=== PATIENT | female | born 1975 | race Caucasian/White ===

== ENCOUNTER 2017-10-27 14:44 | Emergency (ER) | payer BC ==
[2017-10-27 15:44] LABS: #Lymphocytes 1.4 thou/uL (1.20-3.40); #Monocytes 0.3 thou/uL (0.11-0.59); #Neutrophils 5.2 thou/uL (1.40-6.50); %Basophils 0.6 % (0.0-1.0); %Eosinophils 0.3 % (0.0-10.0); %Lymphocytes 19.7 % (21.0-51.0); %Monocytes 4.7 % (0.0-10.0); %Neutrophils 74.7 % (42.0-75.0); Hemoglobin 12.6 g/dL (12.0-16.0); Mean Corpuscular Hemoglobin 28.9 pg (27.0-31.0); Mean Corpuscular Volume 87.7 fl (81.0-99.0); Mean Platelet Volume 8.4 fL (7.4-10.4); Platelet Count 310 thou/uL (130-400); RBC Distribution Width 13.4 % (11.5-14.5); Red Blood Cell (RBC) Count 4.34 mill/uL (4.20-5.40); White Blood Cell (WBC) Count 6.9 thou/uL (4.8-10.8)
[2017-10-27 16:04] LABS: ALT (SGPT) 14 U/L (8-55); AST (SGOT) 18 U/L (5-34); Albumin 4.7 g/dL (3.5-5.0); Alkaline Phosphatase 112 U/L (40-150); Anion Gap 15 mmol/L (10-20); BUN (Urea Nitrogen) 14 mg/dL (7.0-18.7); Bilirubin, Total 0.5 mg/dL (0.2-1.2); Calc. Creatinine Clearance 0 mL/min (70-130); Carbon Dioxide 21 mmol/L (22-29); Chloride 103 mmol/L (98-107); Estimated GFR-MDRD 76; Globulin 3.4 g/dL (2.4-3.5); Glucose 103 mg/dL (70-105); Lipase 210 U/L (8-78); Protein, Total 8.1 g/dL (6.0-8.3); Sodium 136 mmol/L (136-145)
[2017-10-27 16:09] LABS: CKMB 2.5 ng/mL (0-6.6); Troponin I Less than 0.010 ng/mL (< 0.028)
[2017-10-27 16:10] LABS: Potassium 2.9 mmol/L (3.5-5.1)
[2017-10-27] MEDS ORDERED: Ondansetron HCl/PF 4 MG/2 ML Vial ONE (16:43)
--- NOTE | 2017-10-27 17:53 | RAD ---
FRONTAL AND LATERAL IMAGING OF THE CHEST: Date: 10-27-17 Comparison: 10-03-16 History: Body aches, congestion, and cough. FINDINGS: There is no pneumothorax or pleural fluid. No focal consolidation or alveolar edema. Heart and medias tinal contours are grossly unremarkable. IMPRESSION: No acute findings. POS: [facility]
[2017-10-27] MEDS ORDERED: Morphine 4 MG/ML VIAL ONE (18:04)
--- NOTE | 2017-10-27 20:43 | CT ---
CT OF ABDOMEN AND PELVIS: Date: 10-27-17 Comparison: None. History: Nausea, vomiting, diarrhea, abdominal pain, body aches, congestion. Technique: Serial axial CT imaging at 5 mm intervals from lung bases through pubic symphysis with IV contrast. Coronal reformatted imaging obtained. FINDINGS: The lack of oral contrast limits assessment of the bowel. The imaged lung bases are unremarkable. No free intraperitoneal air is noted. The liver, spleen, gallbladder, pancreas, adrenal glands, and kidneys are unremarkable. Trace free fluid noted in the pelvis. Limited assessment of the bowel demonstrates no evidence for ob struction or focal inflammatory change. There is no evidence for appendicitis. There is no lymphadenopathy seen in the abdomen or pelvis. Vascular structures appear patent. No acut e osseous abnormality. IMPRESSION: No acute findings. POS: [facility]
--- NOTE | 2017-12-05 15:04 | EKG ---
Test Reason : Blood Pressure : / mmHG Vent. Rate : 083 BPM Atrial Rate : 083 BPM P-R Int : 126 ms QRS Dur : 094 ms QT Int : 384 ms P-R-T Axes : 041 018 215 degrees QTc Int : 451 ms Normal sinus rhythm Nonspecific T wave abnormality Abnormal ECG Confirmed by PRISCA ADKINS ([id number]), commissioning editor GINGER CHILDS ([id number] on 12/05/2017 3:03:41 PM Referred By: Confirmed By:PRISCA ADKINS
== END 2017-10-27 19:46 | disposition home or self-care (01) ==
LOC: ERS 14:44
DX: K85.90 Acute pancreatitis without necrosis or infection, unspecified (principal); F41.9 Anxiety disorder, unspecified; F31.9 Bipolar disorder, unspecified
CPT/HCPCS: 36415; 71046; 74177; 80053; 82553; 83690; 84484; 85025; 93005; 96361; 96374; 96375; J2270; J2405

== ENCOUNTER 2019-09-21 13:47 | Emergency (ER) | payer BC | END 2019-09-21 17:09 | disposition left against medical advice (07) | LOC: ERS 13:47 | DX: Z53.21 Procedure and treatment not carried out due to patient leaving prior to being seen by health care provider (principal) ==

== ENCOUNTER 2019-11-06 13:15 | Inpatient (IN) | payer BC ==
[2019-11-06] MEDS ORDERED: Naloxone HCl 2 mg/2 ml Syringe ONE (14:05)
[2019-11-06 14:29] LABS: Bilirubin Negative (Negative); Blood, Urine Negative (Negative); Clarity Clear (Clear); Glucose, Urine (Dipstick) Normal (Negative); Leukocyte Negative Leu/uL (Negative); Nitrite Negative (Negative); Protein, Urine (Dipstick) Negative (Neg-Trace); Urobilinogen Normal mg/dL (Less than 2)
[2019-11-06 14:46] LABS: Hemoglobin 9.3 g/dL (12.0-16.0); Mean Corpuscular HGB CONC 30.9 g/dL (32.0-36.0); Mean Corpuscular Hemoglobin 24.8 pg (27.0-31.0); Mean Corpuscular Volume 80.4 fL (78.0-98.0); RBC Distribution Width 17.7 % (11.5-14.5); Red Blood Cell (RBC) Count 3.73 mill/uL (4.20-5.40); White Blood Cell (WBC) Count 3.1 thou/uL (4.8-10.8)
--- NOTE | 2019-11-06 14:52 | RAD ---
XR Chest 1 View Portable HISTORY: Arms and leg paralysis. Shortness of breath, nausea COMPARISON: 10/03/2016 FINDINGS: The heart size is normal. The lungs are without focal areas of consolidation, pneumothorax or pleural effusions. IMPRESSION: No radiographic evidence of acute cardiopulmonary process.
[2019-11-06 14:59] LABS: BHCG - Serum Negative (NEGATIVE); Pregs Control Background? CLEAR/WHITE (CLR/WHITE); Pregs Control Bar Appear? YES (CONTROL BAR)
[2019-11-06 15:03] LABS: ALT (SGPT) 11 U/L (8-55); AST (SGOT) 34 U/L (5-34); Albumin 3.3 g/dL (3.5-5.0); Alcohol Less than 10 mg/dL (Less than 10); Alkaline Phosphatase 86 U/L (40-110); Anion Gap 16 mmol/L (10-20); BUN (Urea Nitrogen) 8 mg/dL (7.0-18.7); Bilirubin, Total 0.2 mg/dL (0.2-1.2); CK (CPK) 403 U/L (29-168); Calc. Creatinine Clearance 0 mL/min (70-130); Calcium 8.7 mg/dL (7.8-10.44); Carbon Dioxide 22 mmol/L (22-29); Chloride 107 mmol/L (98-107); Estimated GFR-MDRD Greater than 90; Globulin 3.1 g/dL (2.4-3.5); Glucose 143 mg/dL (70-105); Lipase 10 U/L (8-78); Magnesium 1.8 mg/dL (1.6-2.6); Protein, Total 6.4 g/dL (6.0-8.3); Salicylate Less than 8.0 mg/dL (15.0-30.0); Sodium 141 mmol/L (136-145)
[2019-11-06 15:10] LABS: Anisocytosis SLIGHT = 6-15 cells (100X) (0-5/hpf); Band 10 % (5-11); Eosinophils 2 % (0-10); Hypochromia MODERATE=16-30 cells (100X) (0-5/hpf); Lymphocytes 22 % (21-51); MDiff Complete? YES; Mean Platelet Volume 8.1 fL (7.4-10.4); Monocytes 5 % (0-10); Neutrophil 61 % (42-75); Ovalocytes SLIGHT = 2-5 cells (100X) (0-1/hpf); Platelet Count 106 thou/uL (130-400); Platelet Morphology Comment Appears Decreased; Polychromasia SLIGHT = 2-3 cells (100X) (0-2/hpf); Reflex for Review?? YES; Target Cells SLIGHT = 2-5 cells (100X) (0-1/hpf); Tear Drops SLIGHT = 2-5 cells (100X) (0-1/hpf)
[2019-11-06 15:13] LABS: Thyroid Stimulating Hormone 1.2923 uIU/mL (0.35-4.94)
--- NOTE | 2019-11-06 15:23 | CT ---
NONCONTRAST HEAD CT: 11/06/19 HISTORY: Nausea and leg pain. Paralysis x1 month. FINDINGS: No parenchymal hemorrhage. No extra-axial hematoma. No midline shift. Basilar cisterns are patent. Brain volume, age-appropriate. Cortical lala-white matter differentiatio n is preserved. No hydrocephalus. There is opacification of the right frontal sinuses, unchanged. Otherwise, the remaining sinuses and mastoid air cells are adequately aerated. Intact calvarium. IMPRESSION: No acute intracranial process. POS: [facility]
[2019-11-06 15:34] LABS: Amphetamine Not Detected (NotDetected); Barbiturates Screen Not Detected (NotDetected); Benzodiazepine Screen Detected (NotDetected); Cocaine Metabolite Screen Not Detected (NotDetected); Medtox Control Line Valid? VALID (VALID); Medtox Reader # READER 1; Methadone Not Detected (NotDetected); Methamphetamine Not Detected (NotDetected); Opiate Screen Not Detected (NotDetected); Oxycodone Screen Not Detected (NotDetected); Phencyclidine (PCP) Not Detected (NotDetected); THC/Cannabinoid Screen Not Detected (NotDetected); Tricyclic Screen Detected (NotDetected)
[2019-11-06] MEDS ORDERED: Bisacodyl 5 MG TAB PO PRN ×2 (17:07→22:54)
[2019-11-06] MEDS ORDERED: Ondansetron PF 4 MG/2 ML Vial IVP PRN ×2 (17:07→22:57)
[2019-11-06] MEDS ORDERED: HYDROcodone/Acetaminophen 7.5/325 mg Tablet PO PRN (17:07)
[2019-11-06] MEDS ORDERED: HYDROcodone/Acetaminophen 5/325 mg Tablet PO PRN (17:07)
[2019-11-06] MEDS ORDERED: Loperamide HCl 2 MG CAP PO PRN (17:07)
[2019-11-06] MEDS ORDERED: Acetaminophen 325 MG TAB PO PRN ×2 (17:07→22:53)
[2019-11-06] MEDS ORDERED: Labetalol HCl 100 MG/20 ML VIAL SLOW IVP PRN ×2 (17:12→22:58)
[2019-11-06] MEDS ORDERED: diphenhydrAMINE 25 MG CAP PO PRN ×3 (17:12→22:58)
[2019-11-06] MEDS ORDERED: Docusate 100 MG CAP PO PRN ×2 (17:12→22:58)
[2019-11-06] MEDS ORDERED: Melatonin 3 MG TAB PO PRN ×2 (17:12→22:58)
[2019-11-06] MEDS ORDERED: Benzonatate 100 MG CAP PO PRN ×2 (17:12→22:57)
[2019-11-06] MEDS ORDERED: Sodium Chloride 0.9% 1,000 ML IV SCH ×2 (17:15→23:00)
--- NOTE | 2019-11-06 17:18 | PDOC.HHP ---
Hospitalist HPI - History of Present Illness LE weakness, slowed cognition History of Present Illness: 44-year-old female with past medical history of bipolar depression, anxiety, panic attacks, insomnia, and hypertension presents with generalized weakness and slowed cognition. Patient states that she has felt weakness in her legs, to the point where she is not able to walk. Emergency department staff attempted to get patient up and it is though she is intoxicated. Patient has urinary toxicology positive for benzodiazepine and try cyclic medications. She states that she has been taking these medications as directed and denies taking more than recommended. Patient also has Lyrica, hydroxyzine, and Ambien listed as home medications. Difficult to obtain an accurate history from the patient though she is alert to self, she knows she is in the hospital, and she knows the year. She is able to tell me she came in the hospital for weakness in her legs. She told the same to the emergency department physician. Patient easily falls back asleep during history and physical and requires noxious stimuli to stay awake. Patient has no focal neurologic deficits and moving all of her limbs appropriately. Patient's pupils are equal around reactive to light. Patient with CT scan of had with no acute abnormalities. Breathing well on room air. Labs are benign. Patient admitted for polypharmacy in acute intoxication likely benzodiazepine related. I attempted to call family though there is none currently listed in the computer. The patient tells me that she has a and he knows she is here in the hospital, however I'm not able to get a phone number and this may not be accurate. The patient has been he questionable historian and her cognition is slowed consistent with acute intoxication from benzodiazepine/ poly pharmacy. Patient had similar presentation in 2017 to [facility] and was diagnosed with lithium toxicity at that time, I have ordered lithium level. Hospitalist ROS - Review of Systems All other systems reviewed; all pertinent +/- noted in HPI/Subj Hospitalist History - Past Medical History Source: patient, old records Pulmonary: reports: hypertension Psych: reports: Anxiety, Bipolar, Depression - Past Surgical History Past Surgical History: reports: Other - Family History Family History: reports: hypertension - Social History Smoking Status: Unknown if ever smoked Alcohol: reports: None Drugs: reports: none Living Situation: With Family Activity level: independent ambulation - Exam General Appearance: NAD General - other findings: Intoxicated Eye: PERRL, anicteric sclera ENT: normocephalic atraumatic, moist mucosa Neck: supple, no JVD Heart: RRR, no murmur, no gallops, no rubs Respiratory: CTAB, no wheezes, no rales, no ronchi, normal chest expansion, no tachypnea Gastrointestinal: soft, non-tender, non-distended, no guarding, no rigidity Extremities: no edema Skin: no rashes Skin - other findings: Right arm mild scratch childers/ irritation in arm Neurological: cranial nerve grossly intact, no focal deficits Musculoskeletal: generalized weakness Psychiatric: A&O x 3, somnolent Hospitalist Results - Labs Result Diagrams: 11/06/19 14:21 11/06/19 14:21 Lab results: WBC 3.1 thou/uL (4.8-10.8) L 11/06/19 14:21 Hgb 9.3 g/dL (12.0-16.0) L 11/06/19 14:21 Hct 30.0 % (36.0-47.0) L 11/06/19 14:21 MCV 80.4 fL (78.0-98.0) 11/06/19 14:21 Plt Count 106 thou/uL (130-400) L 11/06/19 14:21 Band Neuts % (Manual) 10 % (5-11) 11/06/19 14:21 Sodium 141 mmol/L (136-145) 11/06/19 14:21 Potassium 4.0 mmol/L (3.5-5.1) 11/06/19 14:21 Chloride 107 mmol/L (98-107) 11/06/19 14:21 Carbon Dioxide 22 mmol/L (22-29) 11/06/19 14:21 BUN 8 mg/dL (7.0-18.7) 11/06/19 14:21 Creatinine 0.66 mg/dL (0.6-1.1) 11/06/19 14:21 Glucose 143 mg/dL (70-105) H 11/06/19 14:21 Lactic Acid 1.4 mmol/L (0.5-2.2) 11/06/19 14:25 Calcium 8.7 mg/dL (7.8-10.44) 11/06/19 14:21 Total Bilirubin 0.2 mg/dL (0.2-1.2) 11/06/19 14:21 AST 34 U/L (5-34) 11/06/19 14:21 ALT 11 U/L (8-55) 11/06/19 14:21 Alkaline Phosphatase 86 U/L (40-110) 11/06/19 14:21 Creatine Kinase 403 U/L (29-168) H 11/06/19 14:21 Troponin I Less than 0.010 ng/mL (< 0.028) 11/06/19 14:21 Serum Total Protein 6.4 g/dL (6.0-8.3) 11/06/19 14:21 Albumin 3.3 g/dL (3.5-5.0) L 11/06/19 14:21 Lipase 10 U/L (8-78) 11/06/19 14:21 Urine Ketones Negative mg/dL (Negative) 11/06/19 14:10 Urine Blood Negative (Negative) 11/06/19 14:10 Urine Nitrite Negative (Negative) 11/06/19 14:10 Ur Leukocyte Esterase Negative Gus/uL (Negative) 11/06/19 14:10 - Radiology Interpretation CT scan - head Status: image reviewed by me Chest x-ray Status: image reviewed by mo Hospitalist H&P A/P - Problem (1) Toxic metabolic encephalopathy Code(s): G92 - TOXIC ENCEPHALOPATHY Status: Acute (2) Polypharmacy Code(s): Z79.899 - OTHER SKILLED NURSING (CURRENT) DRUG THERAPY Status: Acute (3) Bipolar disorder Code(s): F31.9 - BIPOLAR DISORDER, UNSPECIFIED Status: Chronic Qualifiers: Current bipolar episode type: depressed Current episode severity: unspecified (4) Depression Code(s): F32.9 - MAJOR DEPRESSIVE DISORDER, SINGLE EPISODE, UNSPECIFIED Status : Chronic (5) HTN (hypertension) Code(s): I10 - ESSENTIAL (PRIMARY) HYPERTENSION Status: Chronic (6) Benzodiazepine abuse Code(s): F13.10 - SEDATIVE, HYPNOTIC OR ANXIOLYTIC ABUSE, UNCOMPLICATED Status : Acute - Plan Plan: Plan: admit to the medical unit patient has had prior hospitalization with similar presentation in 2017, she was diagnosed with lithium toxicity at that time lithium level added now Concern for polypharmacy, benzodiazapine toxicity, and possible lithiam toxicity urinary toxicology positive for benzodiazepine urinary toxicology positive for tricyclic antidepressants, however this is not listed as current home medication from prior records negative alcohol level negative salicylate level negative acetaminophen level No clinical suspicion for intentional overdose CT scan head negative chest x-ray negative complete metabolic panel was benign CBC with mild anemia urine analysis negative for acute infection patient moving all four limbs, pupils are equally round and reactive to light and accommodation no clinical suspicion for acute CVA no seizure type activity breathing well on room air patient with sinus tachycardia and she does appear to be on the dry side NS at 75 mL per hour we will hold home medications at this time until we can get an accurate medication reconciliation from the patient or family next of kin does not have a phone number in the computer system at this time, I attempted to contact family to collaborate story blood pressure control with symptomatic medications if needed blood sugar control G.I. prophylaxis DVT prophylaxis
[2019-11-06] MEDS ORDERED: Heparin 5,000 UNITS/ML VIAL SC SCH ×2 (21:00→23:00)
[2019-11-06] MEDS ORDERED: Famotidine 20 MG TAB PO SCH ×2 (21:00→23:00)
[2019-11-07] MEDS: HYDROcodone/Acetaminophen 7.5/325 mg Tablet PO PRN ×2 (02:11→08:31)
[2019-11-07] MEDS: Famotidine 20 MG TAB PO SCH ×2 (08:31→20:12)
[2019-11-07] MEDS: Heparin 5,000 UNITS/ML VIAL SC SCH ×3 (08:32→20:11)
[2019-11-07 09:32] LABS: #Eosinphils 0.1 thou/uL (0.0-0.7); #Lymphocytes 1.2 thou/uL (1.20-3.40); #Monocytes 0.2 thou/uL (0.11-0.59); #Neutrophils 1.8 thou/uL (1.40-6.50); %Basophils 0.5 % (0.0-1.0); %Eosinophils 3.8 % (0.0-10.0); %Lymphocytes 35.3 % (21.0-51.0); %Monocytes 5.8 % (0.0-10.0); %Neutrophils 54.6 % (42.0-75.0); Hemoglobin 8.8 g/dL (12.0-16.0); Mean Corpuscular HGB CONC 30.8 g/dL (32.0-36.0); Mean Corpuscular Hemoglobin 24.8 pg (27.0-31.0); Mean Corpuscular Volume 80.4 fL (78.0-98.0); Mean Platelet Volume 11.9 fL (7.4-10.4); Platelet Count 136 thou/uL (130-400); RBC Distribution Width 17.8 % (11.5-14.5); Red Blood Cell (RBC) Count 3.56 mill/uL (4.20-5.40); White Blood Cell (WBC) Count 3.3 thou/uL (4.8-10.8)
[2019-11-07] MEDS ORDERED: Venlafaxine HCl XR 150 MG CAP PO SCH (11:30)
[2019-11-07] MEDS: ALPRAZolam 0.5 MG TAB PO PRN (11:57)
[2019-11-07] MEDS: hydrOXYzine Pamoate 25 mg Capsule PO SCH ×3 (13:43→20:10)
[2019-11-07] MEDS: HYDROcodone/Acetaminophen 5/325 mg Tablet PO PRN ×2 (13:47→20:12)
[2019-11-07] MEDS: Pregabalin 50 MG CAP PO SCH ×2 (15:51→20:22)
--- NOTE | 2019-11-07 16:27 | PDOC.HOSPP ---
- Subjective Encounter Date: 11/07/19 Encounter Time: 09:00 Subjective: pt up in bed complains of feeling weak all over. - Objective Vital Signs & Weight: Vital Signs (12 hours) Temp Pulse Pulse Resp BP BP BP 11/07/19 11:50 98.9 F 89 14 122/68 11/07/19 09:42 78 129/79 11/07/19 09:09 129/69 131/73 11/07/19 07:35 98.2 F 81 16 116/64 Pulse Ox Pulse Ox 11/07/19 11:50 95 11/07/19 09:42 97 11/07/19 09:09 11/07/19 07:35 94 L Weight Weight 160 lb Result Diagrams: 11/07/19 09:18 11/06/19 14:21 Hospitalist ROS - Review of Systems Cardiovascular: denies: chest pain, palpitations, orthopnea, paroxysmal noc. dyspnea, edema, light headedness, other Gastrointestinal: denies: nausea, vomiting, abdominal pain, diarrhea, constipation, melena, hematochezia, other Genitourinary: denies: dysuria, frequency, incontinence, hematuria, retention, other Neurological: reports: weakness - Medication Medications: Active Medications Generic Name Dose Route Start Last Admin Trade Name Freq PRN Reason Stop Dose Admin Hydrocodone Bitart/Acetaminophen 1 tab 11/06/19 22:54 11/07/19 13:47 [place] 5/325 PO 1 tab Q4H PRN Administration Moderate Pain (4-6) Hydrocodone Bitart/Acetaminophen 1 tab 11/06/19 22:54 11/07/19 08:31 [place] 7.5/325 PO 1 tab Q4H PRN Administration Severe Pain (7-10) Alprazolam 0.5 mg 11/07/19 10:50 11/07/19 11:57 Xanax PO 0.5 mg DAILYPRN PRN Administration Anxiety Famotidine 20 mg 11/07/19 09:00 11/07/19 08:31 Pepcid PO 20 mg BID QUE Administration Heparin Sodium (Porcine) 5,000 units 11/07/19 09:00 11/07/19 15:51 Heparin SC 5,000 units TID QUE Administration Hydroxyzine Pamoate 25 mg 11/07/19 13:00 11/07/19 13:43 Vistaril PO 25 mg QID QUE Administration Pregabalin 200 mg 11/07/19 15:00 11/07/19 15:51 Lyrica PO 200 mg TID QUE Administration - Exam Neck: negative: supple, symmetric, no JVD, no thyromegaly, no lymphadenopathy, no carotid bruit, JVD Heart: negative: RRR, no murmur, no gallops, no rubs, normal peripheral pulses, irregular, diminshed peripheral pulses, murmur present, II/IV, III/IV Respiratory: negative: CTAB, no wheezes, no rales, no ronchi, normal chest expansion, no tachypnea, normal percussion, rales, rhonchi, tachypneic, wheezes Gastrointestinal: negative: soft, non-tender, non-distended, normal bowel sounds , no palpable masses, no hepatomegaly, no splenomegaly, no bruit, no guarding, no rigidity, tender to palpation, distended, diminished bowl sounds, voluntary guarding Extremities: 1+ LE edema Extremities - other findings: pain on palpation of lower legs. Neurological - other findings: 4/5 strenght to lower ext and upper ext. Hosp A/P (1) Bipolar disorder Code(s): F31.9 - BIPOLAR DISORDER, UNSPECIFIED Status: Chronic Qualifiers: Current bipolar episode type: depressed Current episode severity: unspecified (2) Depression Code(s): F32.9 - MAJOR DEPRESSIVE DISORDER, SINGLE EPISODE, UNSPECIFIED Status : Chronic (3) HTN (hypertension) Code(s): I10 - ESSENTIAL (PRIMARY) HYPERTENSION Status: Chronic (4) Generalized weakness Code(s): R53.1 - WEAKNESS Status: Acute - Plan will check esr/crp/chantelle. pt states her symptoms have been going on for the past 6m and have gradually gotten worse. she is on many medication which could cause her generalized weakness. will get neurology to see her. she is also anemic and has not had a colonoscopy. will check iron studies and stool for occult blood. will need rehab.
[2019-11-07] MEDS: Lithium Carbonate 150 MG CAP PO SCH (20:12)
[2019-11-07] MEDS: Zolpidem Tartrate 5 MG TAB PO PRN (20:22)
[2019-11-08] MEDS: HYDROcodone/Acetaminophen 5/325 mg Tablet PO PRN ×4 (04:03→18:27)
[2019-11-08 04:17] LABS: Anion Gap 14 mmol/L (10-20); BUN (Urea Nitrogen) 10 mg/dL (7.0-18.7); Calc. Creatinine Clearance 105 mL/min (70-130); Calcium 8.3 mg/dL (7.8-10.44); Carbon Dioxide 21 mmol/L (22-29); Chloride 108 mmol/L (98-107); Estimated GFR-MDRD 81; Glucose 116 mg/dL (70-105); Iron 36 ug/dL (50-170); Potassium 4.2 mmol/L (3.5-5.1); Sodium 139 mmol/L (136-145)
[2019-11-08 04:47] LABS: #Basophils 0.1 thou/uL (0.0-0.2); #Eosinphils 0.2 thou/uL (0.0-0.7); #Lymphocytes 1.6 thou/uL (1.20-3.40); #Monocytes 0.4 thou/uL (0.11-0.59); #Neutrophils 2.5 thou/uL (1.40-6.50); %Basophils 1.3 % (0.0-1.0); %Eosinophils 4.3 % (0.0-10.0); %Lymphocytes 34.7 % (21.0-51.0); %Monocytes 7.4 % (0.0-10.0); %Neutrophils 52.3 % (42.0-75.0); Hemoglobin 8.8 g/dL (12.0-16.0); Large Platelets SLIGHT; MDiff Complete? YES; Mean Corpuscular HGB CONC 31.9 g/dL (32.0-36.0); Mean Corpuscular Hemoglobin 25.7 pg (27.0-31.0); Mean Corpuscular Volume 80.4 fL (78.0-98.0); Mean Platelet Volume 12.1 fL (7.4-10.4); Platelet Count 139 thou/uL (130-400); Platelet Morphology Comment Appears Adequate; RBC Distribution Width 17.7 % (11.5-14.5); Red Blood Cell (RBC) Count 3.44 mill/uL (4.20-5.40); White Blood Cell (WBC) Count 4.7 thou/uL (4.8-10.8)
[2019-11-08] MEDS ORDERED: QUEtiapine Fumarate ER 50 MG TAB PO SCH (09:00)
[2019-11-08] MEDS: Venlafaxine HCl XR 150 MG CAP PO SCH (09:12)
[2019-11-08] MEDS: Famotidine 20 MG TAB PO SCH ×2 (09:12→20:13)
[2019-11-08] MEDS: hydrOXYzine Pamoate 25 mg Capsule PO SCH ×4 (09:12→20:12)
[2019-11-08] MEDS: Heparin 5,000 UNITS/ML VIAL SC SCH ×3 (09:12→20:10)
[2019-11-08] MEDS: Lithium Carbonate 150 MG CAP PO SCH ×3 (09:13→20:14)
[2019-11-08] MEDS: Pregabalin 50 MG CAP PO SCH ×3 (09:13→20:13)
--- NOTE | 2019-11-08 14:16 | PDOC.HOSPP ---
- Subjective Encounter Date: 11/08/19 Encounter Time: 11:15 Subjective: pt up in bed complains of pain to her right knee. pt states that she feel a few months back and since then has been having pain to her right knee. - Objective Vital Signs & Weight: Vital Signs (12 hours) Temp Pulse Resp BP Pulse Ox 11/08/19 11:25 98.9 F 82 14 127/78 96 11/08/19 07:43 98.7 F 76 14 122/71 94 L 11/08/19 03:27 98.6 F 85 18 122/83 96 Weight Weight 162 lb 6 oz I&O: 11/07/19 11/08/19 11/09/19 06:59 06:59 06:59 Intake Total 1640 Output Total 1175 Balance 465 Result Diagrams: 11/08/19 03:22 11/08/19 03:22 Hospitalist ROS - Review of Systems Cardiovascular: denies: chest pain, palpitations, orthopnea, paroxysmal noc. dyspnea, edema, light headedness, other Gastrointestinal: denies: nausea, vomiting, abdominal pain, diarrhea, constipation, melena, hematochezia, other Genitourinary: denies: dysuria, frequency, incontinence, hematuria, retention, other Musculoskeletal: reports: other (right knee pain) - Medication Medications: Active Medications Generic Name Dose Route Start Last Admin Trade Name Freq PRN Reason Stop Dose Admin Hydrocodone Bitart/Acetaminophen 1 tab 11/06/19 22:54 11/08/19 13:58 [place] 5/325 PO 1 tab Q4H PRN Administration Moderate Pain (4-6) Hydrocodone Bitart/Acetaminophen 1 tab 11/06/19 22:54 11/07/19 08:31 [place] 7.5/325 PO 1 tab Q4H PRN Administration Severe Pain (7-10) Alprazolam 0.5 mg 11/07/19 10:50 11/07/19 11:57 Xanax PO 0.5 mg DAILYPRN PRN Administration Anxiety Famotidine 20 mg 11/07/19 09:00 11/08/19 09:12 Pepcid PO 20 mg BID QUE Administration Heparin Sodium (Porcine) 5,000 units 11/07/19 09:00 11/08/19 09:12 Heparin SC 5,000 units TID QUE Administration Hydroxyzine Pamoate 25 mg 11/07/19 13:00 11/08/19 12:46 Vistaril PO 25 mg QID QUE Administration [place] Carbonate 150 mg 11/07/19 21:00 11/08/19 09:13 [place] Carbonate PO 150 mg TID QUE Administration Pregabalin 200 mg 11/07/19 15:00 11/08/19 09:13 Lyrica PO 200 mg TID QUE Administration Venlafaxine HCl 150 mg 11/08/19 09:00 11/08/19 09:12 Effexor Xr PO 150 mg DAILY QUE Administration Zolpidem Tartrate 10 mg 11/07/19 16:25 11/07/19 20:22 Ambien PO 10 mg HS PRN Administration Insomnia - Exam Heart: negative: RRR, no murmur, no gallops, no rubs, normal peripheral pulses, irregular, diminshed peripheral pulses, murmur present, II/IV, III/IV Respiratory: negative: CTAB, no wheezes, no rales, no ronchi, normal chest expansion, no tachypnea, normal percussion, rales, rhonchi, tachypneic, wheezes Gastrointestinal: negative: soft, non-tender, non-distended, normal bowel sounds , no palpable masses, no hepatomegaly, no splenomegaly, no bruit, no guarding, no rigidity, tender to palpation, distended, diminished bowl sounds, voluntary guarding Extremities - other findings: right knee mild swelling and pain on palpation of medial/lateral collateral Hosp A/P (1) Bipolar disorder Code(s): F31.9 - BIPOLAR DISORDER, UNSPECIFIED Status: Chronic Qualifiers: Current bipolar episode type: depressed Current episode severity: unspecified (2) Depression Code(s): F32.9 - MAJOR DEPRESSIVE DISORDER, SINGLE EPISODE, UNSPECIFIED Status : Chronic (3) HTN (hypertension) Code(s): I10 - ESSENTIAL (PRIMARY) HYPERTENSION Status: Chronic (4) Generalized weakness Code(s): R53.1 - WEAKNESS Status: Acute - Plan will check esr/crp/chantelle. pt states her symptoms have been going on for the past 6m and have gradually gotten worse. she is on many medication which could cause her generalized weakness. will get neurology to see her. she is also anemic and has not had a colonoscopy. will check iron studies and stool for occult blood. will need rehab. 11/07 mild elevated ck, stool for occult pending. will get xray of right knee. MRI brain/cervical and thorax has been ordered. CHANTELLE pending.
--- NOTE | 2019-11-08 15:35 | RAD ---
Exam: XR Knee Rt 4 View STANDARD HISTORY: Right knee pain after a fall. COMPARISON: None FINDINGS: Osteophytes are seen involving the medial joint compartment. There is mild narrowing of the medial diamante int space with subchondral sclerosis present involving the medial joint compartment. No fracture or dislocation is identified. A suprapatellar joint effusion is seen. No other osseous abnormality. IMPRESSION: 1. Suprapatellar joint effusion. MRI may be helpful for further evaluation to evaluate for internal d erangement. 2. Findings most likely related to degenerative changes involving the medial joint compartment. Howev er, there is evidence of subchondral sclerosis involving the medial joint compartment, but this is more than typically expected for patient's age. This can also be further evaluated on MRI.
[2019-11-08] MEDS: ALPRAZolam 0.5 MG TAB PO PRN (15:56)
--- NOTE | 2019-11-08 17:45 | CON ---
DATE OF TELEMEDICINE CONSULTATION: 11/08/2019 CHIEF COMPLAINT: Generalized weakness. HISTORY OF PRESENT ILLNESS: The patient is a 44-year-old lady with known history of depression. She reports she has been clumsy for a while and did not take it seriously, and these symptoms have been occurring for the last 6 months. She fell a few weeks ago somewhere around 24 of October, and 2 days before hospitalization , she developed generalized weakness in both her arms and legs and she could not move her legs and was not able to walk well. She has tingling of her fingers and legs feel very weak and she does not have tingling of her feet or any numbness. She has some frequency of urination. She did have some colon illness about a week ago and she recovered from that. PREVIOUS MEDICAL HISTORY: Positive for depression. She feels her depression is worse due to the fact that her is very critical and verbally abusive. PAST SURGICAL HISTORY: She has had multiple surgeries, sinus surgery, shoulder surgery, 14 surgeries in the left little pinky, she had a bone graft from her hip into the left pinky, and then she also had 5 surgeries on each of her big toes for bunion repair and had scar tissue. SOCIAL HISTORY: She lives with her . She is a nonsmoker. No alcohol. No drugs. She is currently not working. FAMILY HISTORY: Her brother is 40, he is autistic, he cannot talk or feed himself, he does not recognize people, he is epileptic and has cerebral palsy, he lives in a private fdc. The patient's mother was found at 60 and she had no illness and they were told she from natural causes and they did the autopsy. She in her sleep. Father at 64. He drove into a tree without seat belt and they are not sure if he committed suicide or it was an accident. REVIEW OF SYSTEMS: PULMONARY: Negative for shortness of breath. GI: Negative for nausea or vomiting, but positive for recent diarrhea. HEMATOLOGIC: Negative for any bleeding diathesis or anemia. DERMATOLOGIC: Negative for any skin rash. OPHTHALMOLOGIC: Negative for any vision problems. GENITOURINARY: Positive for increased urinary frequency. LABORATORY DATA: Lab workup so far; white count 4.7, hemoglobin 8.8, hematocrit 27.7, and platelet count 139. Chemistry; sodium 139, potassium 4.2, chloride 108, bicarb 21, BUN 10, creatinine 0.77, glucose 116. Iron 36, ferritin 12.09. LDH 291. C-reactive protein 1.08. IMAGING STUDIES: She is pending MRI at this time. She did have a CT of the head, which was completed and CT did not show any acute intracranial process. PHYSICAL EXAMINATION: VITAL SIGNS: Temperature 98.9, pulse 82, respiratory rate 14, O2 saturations 96 , and blood pressure 127/78. GENERAL APPEARANCE: Well-built, well-nourished lady, who is comfortable in the bed. CHEST: Clear vesicular breathing. CARDIOVASCULAR: S1 and S2 heard. No murmurs. ABDOMEN: Soft. NEUROLOGIC: Higher intellectual function, normal orientation to time, place, and person. Appropriate conversation. Cranial nerves, normal extraocular movements. Tongue midline. No atrophy noted. Normal sensation of face bilaterally. Normal hearing to finger rub bilaterally. Normal elevation of palate. Pupils were 3 mm bilaterally. Motor examination, bulk normal and tone normal. Strength 3/5 in upper extremities and lower extremities, may be 3+/5 in upper extremity with effort. The patient did have decreased effort throughout. Muscle groups tested are iliopsoas, hamstrings, quadriceps, ankle dorsiflexion, plantar flexion, deltoid, biceps, triceps, wrist extension and flexion, finger extension and flexion. Deep tendon reflexes were 3+ throughout. No clonus was noted. She had decreased sensation in the right lower extremity. Cerebellar, difficult to assess due to weakness. IMPRESSION: The patient is a 44-year-old lady with a recent gastrointestinal illness with diarrhea and colon problems which have resolved and they occurred 1 week ago. The patient also has depression. She has had some kind of incoordination and clumsiness and had a fall on 24 of October, but she developed worsening of her weakness and currently, has both arm and leg weakness bilaterally. Differential diagnosis includes possible demyelinating disease such as multiple sclerosis versus transverse myelitis versus possible Guillain-Alpine syndrome. RECOMMENDATIONS: Please complete MRI of brain, thoracic and C-spine. If of MRI brain, thoracic and C-spine are negative, please consider lumbar puncture to establish diagnosis of possible Guillain-Alpine syndrome. We will request Dr. Vitale to follow up the patient tomorrow. Job ID: [id number] [facility]
[2019-11-08] MEDS: Zolpidem Tartrate 5 MG TAB PO PRN (20:13)
[2019-11-08] MEDS ORDERED: SEROQUEL 400 MG PO SCH (21:00)
[2019-11-09] MEDS: HYDROcodone/Acetaminophen 7.5/325 mg Tablet PO PRN ×4 (04:11→21:45)
[2019-11-09] MEDS: ALPRAZolam 0.5 MG TAB PO PRN (04:12)
[2019-11-09] MEDS ORDERED: SODIUM CHLORIDE 0.9% IVPB SCH (06:00)
[2019-11-09] MEDS ORDERED: IRON IVPB SCH (06:00)
[2019-11-09] MEDS ORDERED: SODIUM FERRIC GLUCONATE IVPB SCH (06:00)
[2019-11-09] MEDS ORDERED: Iron Sucrose Complex 100 MG in Sodium Chloride 0.9% 100 ML IVPB SCH (08:00)
[2019-11-09] MEDS: Pregabalin 50 MG CAP PO SCH ×4 (09:35→22:41)
[2019-11-09] MEDS: Lithium Carbonate 150 MG CAP PO SCH ×3 (09:35→22:40)
[2019-11-09] MEDS: Venlafaxine HCl XR 150 MG CAP PO SCH (09:35)
[2019-11-09] MEDS: hydrOXYzine Pamoate 25 mg Capsule PO SCH ×5 (09:36→22:40)
[2019-11-09] MEDS: Famotidine 20 MG TAB PO SCH ×2 (09:36→22:41)
[2019-11-09] MEDS: Heparin 5,000 UNITS/ML VIAL SC SCH ×3 (09:37→22:42)
[2019-11-09] MEDS ORDERED: Lorazepam 2 MG/ML VIAL SLOW IVP SCH ×2 (11:00→13:30)
--- NOTE | 2019-11-09 13:30 | MRI ---
MRI OF THE RIGHT KNEE WITHOUT CONTRAST: INDICATION: History of abnormal right knee pain and swelling. COMPARISON: Right knee radiographs dated 11/08/2019. FINDINGS: There is moderate edema involving the lateral femorotibial joint compartment with subchondral insuffi ciency fractures involving the posterolateral tibial plateau and posterior lateral aspect of the late ral femoral condyle. There are mild marginal osteophytes affecting all major compartments of the rig ht knee but most prominent involving the lateral femoral tibial joint compartment. There is a macerated multidirectional tear involving the anterior horn, body, and posterior horn of t he lateral meniscus. There is a predominant horizontal component involving the anterior horn and bod y. There is a portion of a radial component involving the posterior junction and horn of the lateral meniscus with partial extrusion of the lateral meniscus. There is suspicion for a flipped fragment from the posterior horn of the lateral meniscus overlying the posterior root, best seen on image 8 of series 4. The medial meniscus is intact. There is diffuse articular cartilage thinning involving the medial fe morotibial compartment. The ACL, PCL, MCL, and LCLC are intact. The IT band is intact. The extensor mechanism is intact. T here is a moderate-sized joint effusion. IMPRESSION: 1. Mild osteoarthrosis of the right knee predominantly affecting the lateral femorotibial compartmen t. 2. Complex multidirectional lateral meniscal tear with an associated radial component involving the posterior junction and posterior horn of the lateral meniscus with a displaced meniscal flap overlyin g the posterior root. Predominant horizontal components involve the body and anterior horn. 3. Subchondral insufficiency-type fractures involving the posterior lateral femoral condyle and post erior lateral tibial plateau with surrounding marrow edema. 4. Moderate-sized joint effusion. POS: [facility]
[2019-11-09] MEDS ORDERED: ALPRAZolam 0.5 MG TAB PO PRN (15:00)
[2019-11-09 16:40] VITALS: BMI 27.6
[2019-11-09] MEDS: Zolpidem Tartrate 5 MG TAB PO PRN (23:51)
[2019-11-10] MEDS ORDERED: Sodium Chloride 0.9% 500 ML IV SCH (07:00)
[2019-11-10] MEDS ORDERED: Lorazepam 2 MG/ML VIAL SLOW IVP SCH (08:45)
[2019-11-10] MEDS: hydrOXYzine Pamoate 25 mg Capsule PO SCH ×4 (08:49→22:26)
[2019-11-10] MEDS: Heparin 5,000 UNITS/ML VIAL SC SCH ×3 (08:49→22:28)
[2019-11-10] MEDS: Pregabalin 50 MG CAP PO SCH ×3 (08:49→22:26)
[2019-11-10] MEDS: Venlafaxine HCl XR 150 MG CAP PO SCH (08:50)
[2019-11-10] MEDS: Famotidine 20 MG TAB PO SCH ×2 (08:50→22:28)
--- NOTE | 2019-11-10 08:59 | PDOC.HOSPP ---
- Subjective Encounter Date: 11/09/19 Encounter Time: 18:45 - Objective Vital Signs & Weight: Vital Signs (12 hours) Temp Pulse Resp BP BP Pulse Ox 11/10/19 07:40 97.7 F 75 20 92/50 L 97 11/10/19 04:00 97.6 F 84 20 94/60 93 L 11/10/19 03:47 94 L 11/09/19 23:50 97.5 F L 74 18 116/81 94 L Weight Weight 166 lb I&O: 11/09/19 11/10/19 11/11/19 06:59 06:59 06:59 Intake Total 1325 1650 Output Total 1150 1000 Balance 175 650 Result Diagrams: 11/08/19 03:22 11/08/19 03:22 Hospitalist ROS - Medication Medications: Active Medications Generic Name Dose Route Start Last Admin Trade Name Freq PRN Reason Stop Dose Admin Hydrocodone Bitart/Acetaminophen 1 tab 11/06/19 22:54 11/08/19 18:27 [place] 5/325 PO 1 tab Q4H PRN Administration Moderate Pain (4-6) Hydrocodone Bitart/Acetaminophen 1 tab 11/06/19 22:54 11/09/19 21:45 [place] 7.5/325 PO 1 tab Q4H PRN Administration Severe Pain (7-10) Famotidine 20 mg 11/07/19 09:00 11/09/19 22:41 Pepcid PO 20 mg BID QUE Administration Heparin Sodium (Porcine) 5,000 units 11/07/19 09:00 11/09/19 22:42 Heparin SC 5,000 units TID QUE Administration Hydroxyzine Pamoate 25 mg 11/07/19 13:00 11/09/19 22:40 Vistaril PO 25 mg QID QUE Administration [place] Carbonate 150 mg 11/07/19 21:00 11/09/19 22:40 [place] Carbonate PO 150 mg TID QUE Administration Pregabalin 200 mg 11/07/19 15:00 11/09/19 22:41 Lyrica PO 200 mg TID QUE Administration Quetiapine Fumarate 800 mg 11/08/19 21:00 11/09/19 22:40 Seroquel PO 800 mg HS QUE Administration Venlafaxine HCl 150 mg 11/08/19 09:00 11/09/19 09:35 Effexor Xr PO 150 mg DAILY QUE Administration Zolpidem Tartrate 10 mg 11/07/19 16:25 11/09/19 23:51 Ambien PO 10 mg HS PRN Administration Insomnia - Exam Neck: negative: supple, symmetric, no JVD, no thyromegaly, no lymphadenopathy, no carotid bruit, JVD Heart: negative: RRR, no murmur, no gallops, no rubs, normal peripheral pulses, irregular, diminshed peripheral pulses, murmur present, II/IV, III/IV Respiratory: negative: CTAB, no wheezes, no rales, no ronchi, normal chest expansion, no tachypnea, normal percussion, rales, rhonchi, tachypneic, wheezes Gastrointestinal: negative: soft, non-tender, non-distended, normal bowel sounds , no palpable masses, no hepatomegaly, no splenomegaly, no bruit, no guarding, no rigidity, tender to palpation, distended, diminished bowl sounds, voluntary guarding Extremities - other findings: mild edema noted to right knee, 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 pt states her symptoms have been going on for the past 6m and have gradually gotten worse. she is on many medication which could cause her generalized weakness. will get neurology to see her. she is also anemic and has not had a colonoscopy. will check iron studies and stool for occult blood. will need rehab. 11/07 mild elevated ck, stool for occult pending. will get xray of right knee. MRI brain/cervical and thorax has been ordered. CHANTELLE pending. 11/08 MRI of knee indicates complex multidirectional lateral meniscal tear. will get ortho to see her. she will need the mri brain/thorax and cervical. stool for occult is negative. will give her some iv iron.
[2019-11-10] MEDS: Lithium Carbonate 150 MG CAP PO SCH ×3 (09:06→22:28)
[2019-11-10] MEDS: Sodium Chloride 0.9% 1,000 ML IV SCH (10:35)
[2019-11-10] MEDS: HYDROcodone/Acetaminophen 7.5/325 mg Tablet PO PRN ×2 (12:26→20:24)
[2019-11-10] MEDS: ALPRAZolam 0.5 MG TAB PO PRN ×2 (12:29→15:32)
--- NOTE | 2019-11-10 14:14 | PDOC.HOSPP ---
- Subjective Encounter Date: 11/10/19 Encounter Time: 11:45 Subjective: pt up in bed very drowsy but arousable. she did get Ativan since she is claustrophobic. - Objective Vital Signs & Weight: Vital Signs (12 hours) Temp Pulse Resp BP Pulse Ox 11/10/19 07:40 97.7 F 75 20 92/50 L 97 11/10/19 04:00 97.6 F 84 20 94/60 93 L 11/10/19 03:47 94 L Weight Weight 166 lb I&O: 11/09/19 11/10/19 11/11/19 06:59 06:59 06:59 Intake Total 1325 1650 480 Output Total 1150 1000 Balance 175 650 480 Result Diagrams: 11/08/19 03:22 11/08/19 03:22 Hospitalist ROS - Review of Systems Respiratory: denies: cough, dry, shortness of breath, hemoptysis, SOB with excertion, pleuritic pain, sputum, wheezing, other Cardiovascular: denies: chest pain, palpitations, orthopnea, paroxysmal noc. dyspnea, edema, light headedness, other Gastrointestinal: denies: nausea, vomiting, abdominal pain, diarrhea, constipation, melena, hematochezia, other - Medication Medications: Active Medications Generic Name Dose Route Start Last Admin Trade Name Freq PRN Reason Stop Dose Admin Hydrocodone Bitart/Acetaminophen 1 tab 11/10/19 10:12 11/10/19 12:26 [place] 7.5/325 PO 1 tab Q8H PRN Administration Severe Pain (7-10) Alprazolam 0.5 mg 11/09/19 05:45 11/10/19 12:29 Xanax PO 0.5 mg TID PRN Administration Anxiety Famotidine 20 mg 11/07/19 09:00 11/10/19 08:50 Pepcid PO 20 mg BID QUE Administration Heparin Sodium (Porcine) 5,000 units 11/07/19 09:00 11/10/19 08:49 Heparin SC 5,000 units TID QUE Administration Hydroxyzine Pamoate 25 mg 11/07/19 13:00 11/10/19 08:49 Vistaril PO 25 mg QID QUE Administration Sodium Chloride 1,000 mls @ 50 mls/hr 11/10/19 10:15 11/10/19 10:35 Normal Saline 0.9% IV 1,000 mls .Q20H QUE Administration [place] Carbonate 150 mg 11/07/19 21:00 11/10/19 09:06 [place] Carbonate PO 150 mg TID QUE Administration Pregabalin 200 mg 11/07/19 15:00 11/10/19 08:49 Lyrica PO 200 mg TID QUE Administration Quetiapine Fumarate 800 mg 11/08/19 21:00 11/09/19 22:40 Seroquel PO 800 mg HS QUE Administration Sodium Chloride 10 ml 11/10/19 09:00 11/10/19 08:51 Flush - Normal Saline IVF 10 ml Q12HR QUE Administration Venlafaxine HCl 150 mg 11/08/19 09:00 11/10/19 08:50 Effexor Xr PO 150 mg DAILY QUE Administration Zolpidem Tartrate 10 mg 11/07/19 16:25 11/09/19 23:51 Ambien PO 10 mg HS PRN Administration Insomnia - Exam Neck: negative: supple, symmetric, no JVD, no thyromegaly, no lymphadenopathy, no carotid bruit, JVD Heart: negative: RRR, no murmur, no gallops, no rubs, normal peripheral pulses, irregular, diminshed peripheral pulses, murmur present, II/IV, III/IV Respiratory: negative: CTAB, no wheezes, no rales, no ronchi, normal chest expansion, no tachypnea, normal percussion, rales, rhonchi, tachypneic, wheezes Gastrointestinal: negative: soft, non-tender, non-distended, normal bowel sounds , no palpable masses, no hepatomegaly, no splenomegaly, no bruit, no guarding, no rigidity, tender to palpation, distended, diminished bowl sounds, voluntary guarding Extremities - other findings: right knee swelling, not able to move her right leg much Neurological - other findings: right leg has some weakness compared to left Hosp A/P (1) Bipolar disorder Code(s): F31.9 - BIPOLAR DISORDER, UNSPECIFIED Status: Chronic Qualifiers: Current bipolar episode type: depressed Current episode severity: unspecified (2) Depression Code(s): F32.9 - MAJOR DEPRESSIVE DISORDER, SINGLE EPISODE, UNSPECIFIED Status : Chronic (3) HTN (hypertension) Code(s): I10 - ESSENTIAL (PRIMARY) HYPERTENSION Status: Chronic (4) Generalized weakness Code(s): R53.1 - WEAKNESS Status: Acute (5) Iron deficiency anemia Code(s): D50.9 - IRON DEFICIENCY ANEMIA, UNSPECIFIED Status: Acute (6) 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 pt states her symptoms have been going on for the past 6m and have gradually gotten worse. she is on many medication which could cause her generalized weakness. will get neurology to see her. she is also anemic and has not had a colonoscopy. will check iron studies and stool for occult blood. will need rehab. 11/07 mild elevated ck, stool for occult pending. will get xray of right knee. MRI brain/cervical and thorax has been ordered. CHANTELLE pending. 11/08 MRI of knee indicates complex multidirectional lateral meniscal tear. will get ortho to see her. she will need the mri brain/thorax and cervical. stool for occult is negative. will give her some iv iron. 11/09 pt to undergo MRI today. ortho consult pending. will give her iv iron. unclear dx about her generalized weakness. No sure if this is medication related vs degenerative. Her chantelle is pending.
[2019-11-10] MEDS ORDERED: Iron Sucrose Complex 100 MG in Sodium Chloride 0.9% 100 ML IVPB SCH (14:15)
[2019-11-10] MEDS ORDERED: Iron, Sodium Ferric Gluconate 125 MG in Sodium Chloride 0.9% 100 ML IVPB SCH (14:45)
--- NOTE | 2019-11-10 16:25 | CON ---
DATE OF CONSULTATION: 11/10/[address] Cici Lane PA-C dictating a report for Arturo Kumari MD. REQUESTING PHYSICIAN: [facility]. CONSULTING PHYSICIAN: Arturo Kumari MD REASON FOR CONSULTATION: Right knee lateral meniscus tear. HISTORY OF PRESENT ILLNESS: This is a 44-year-old female, who was admitted to our facility on November 06, 2019, for generalized weakness. Currently at bedside, the patient reports that she has had some complaints of right knee and right lower extremity pain ongoing for approximately six months. She does report a fall several weeks before her hospital admission. Her biggest concern and complaint at this time though is weakness in her legs and arms seems to start in her fingertips and toes and progressed centrally. She states that this started approximately 2 days prior to her hospital admission. She denies a history of similar symptoms in the past. She reports decreased sensation as well. She has been unable to walk and is using a diaper as she is unable to ambulate to the bathroom. Workup here in the hospital includes neurology consult as well as multiple MRIs. One of which was her right knee. This showed a lateral meniscus tear, and we have been consulted for this reason. PAST MEDICAL HISTORY: Significant for anxiety, depression, and bipolar disorder. Past medical history also includes hypotension and unspecified cardiac arrhythmia. PAST SURGICAL HISTORY: Left shoulder, left hand, great toes, nasal surgery. FAMILY HISTORY: Reviewed and noncontributory. ALLERGIES: NO KNOWN DRUG ALLERGIES. REVIEW OF SYSTEMS: Conducted and otherwise negative except for stated above. PHYSICAL EXAMINATION: CURRENT VITAL SIGNS: Blood pressure 94/60, pulse of 84, O2 saturation of 94 on room air, and temperature of 97.6 degrees. GENERAL: The patient is awake and alert. She is sitting up in bed at this time. She is pleasant and cooperative with exam today and answers all questions appropriately. HEENT: Head is normocephalic and atraumatic. NECK: Supple. Trachea midline. LUNGS: Breathing is nonlabored. EXTREMITIES: Bilateral lower extremities were evaluated. The right lower extremity shows some mild swelling at the knee. Skin is intact. No rashes or lesions. She has difficulty with lifting this lower extremity up off the bed. She is able to plantar flex and dorsiflex slightly at the ankle. She is able to move her toes, but again this is weak. She has intact patellar reflex and decreased Achilles reflex. She has no point tenderness to palpation along the medial or lateral joint lines of the knee. No anterior-posterior knee instability is appreciated on exam at this time. She does have a flicker of quad contraction present on the side. Evaluation of the left lower extremity shows that she is able to straight leg raise this off the bed. There is no soft tissue swelling noted. Skin is intact without any lesions or rashes. She is able to flex and extend slightly at the knee as well as the ankle. Patellar reflex is intact, and the Achilles again is decreased. With regard to the upper extremities, the patient does have bilateral upper extremity weakness as she has difficulty pushing the tray table away from the bed. Upper extremities were not specifically tested. IMAGING: Studies reviewed including an MRI of the right lower extremity shows a complex lateral meniscus tear with knee joint effusion. ASSESSMENT AND PLAN: Lateral meniscus tear in a patient with generalized weakness, this seems to be peripheral. PLAN: At this time, the patient does have evidence of this lateral meniscus tear on MRI. I believe this is an incidental finding. It seems that she has a greater neurological issue going on. She is not ambulatory at this time. However, if her condition improves and she is still experiencing point tenderness in the lateral knee region when she is ambulating and back to her baseline, we will provide a referral to our orthopedic clinic for further evaluation for a knee arthroscopy in the future. Again, at this time, no surgical intervention is warranted. Job ID: [id number]
--- NOTE | 2019-11-10 16:55 | MRI ---
MRI OF THE BRAIN WITHOUT AND WITH CONTRAST: 11/10/19 COMPARISON: None. HISTORY: Bilateral upper extremity and lower extremity weakness and paralysis for one month. Evaluate for demy elinating condition. TECHNIQUE: Multiplanar and multisequence MR images were obtained of the brain without and with IV contrast. FINDINGS: The brain demonstrates normal signal intensity in all obtained sequences. No restricted diffusion or abnormal enhancement are seen on this examination. There is no evidence of hydrocephalus, intracranial hemorrhage, or extra-axial fluid collection. The expected flow voids are present. The corpus callosum, pituitary, and craniocervical junction are unremarkable. The calvarium and overlying soft tissues are unremarkable. The visualized paranasal sinuses and masto id air cells are well aerated. IMPRESSION: No significant intracranial abnormality. POS: [facility]
--- NOTE | 2019-11-10 17:02 | MRI ---
MRI OF THE CERVICAL SPINE WITHOUT AND WITH CONTRAST: 11/10/19 COMPARISON: None. HISTORY: Bilateral upper and lower extremity weakness/paralysis for one month that is worsening. Evaluate for demyelinating process. TECHNIQUE: Multiplanar and multisequence MR images were obtained of the cervical spine without and with IV contr ast. FINDINGS: The patient is status post anterior fusion of C4 and C5 with a plate and screws. The vertebral bodies demonstrate normal height and alignment without fracture or subluxation. There is thinning of the cord and subtle high T2 signal in the cord at the C3-4 level. This does not demonstrate enhancement and may represent an area of myelomalacia. The craniocervical junction is unr emarkable. No other abnormality is seen within the cervical cord. C2-3: Unremarkable. C3-4: A moderate disc osteophyte complex is seen. Severe central canal stenosis. Severe right and mod erate left neural foraminal stenosis. C4-5: This level is fused. No posterior facet arthrosis. No neural foraminal or central canal stenosi s. C5-6: A moderate disc osteophyte complex is seen. Mild bilateral posterior facet arthrosis. Severe ce ntral canal stenosis. Moderate to severe bilateral neural foraminal stenosis. C6-7: A small disc osteophyte complex is seen. No posterior facet arthrosis. Moderate central canal s tenosis. Mild bilateral neural foraminal stenosis. C7-T1: Unremarkable. IMPRESSION: 1. Postsurgical changes of the cervical spine as above. 2. There are severe degenerative changes in the mid cervical spine as above. There is an area of thinning of the cord at the C3-4 level with questionable subtle high T2 signal within the cord. This may represent an area of myelomalacia secondary to cord compromise from the degenerative change. 3. No demyelinating process identified. POS: [facility]
--- NOTE | 2019-11-10 17:07 | MRI ---
MRI OF THE THORACIC SPINE WITHOUT AND WITH CONTRAST: 11/10/19 COMPARISON: None. HISTORY: Bilateral upper and lower extremity weakness and paralysis for one month that is worsening. Evaluate for a demyelinating process. TECHNIQUE: Multiplanar and multisequence MR images were obtained of the thoracic spine without and with IV contr ast. FINDINGS: The vertebral bodies demonstrate normal height and alignment without fracture or subluxation. No abno rmal signal is seen in the cord. No abnormal enhancement is seen on this examination. Gallstones are seen in the dependent aspect of the gallbladder. The prevertebral and paraspinal soft tissues are otherwise unremarkable. No significant posterior disc bulge or protrusion is seen. There is a minimal disc osteophyte complex at T7-8 which does not cause significant neural foraminal or central canal stenosis. The neural fora radha are widely patent throughout the thoracic spine. No posterior facet arthrosis is seen. No centra l canal stenosis is present. IMPRESSION: 1. No evidence of a demyelinating process. 2. Cholelithiasis. POS: [facility]
[2019-11-11] MEDS: Sodium Chloride 0.9% 1,000 ML IV SCH (05:23)
[2019-11-11] MEDS: Famotidine 20 MG TAB PO SCH ×2 (08:26→21:16)
[2019-11-11] MEDS: Pregabalin 50 MG CAP PO SCH ×3 (08:26→21:24)
[2019-11-11] MEDS: Heparin 5,000 UNITS/ML VIAL SC SCH ×2 (08:28→15:23)
[2019-11-11] MEDS: Venlafaxine HCl XR 150 MG CAP PO SCH (08:28)
[2019-11-11] MEDS: hydrOXYzine Pamoate 25 mg Capsule PO SCH ×4 (08:28→21:16)
[2019-11-11] MEDS: Lithium Carbonate 150 MG CAP PO SCH ×3 (08:28→21:16)
[2019-11-11] MEDS: ALPRAZolam 0.5 MG TAB PO PRN ×2 (08:36→15:23)
[2019-11-11] MEDS: HYDROcodone/Acetaminophen 7.5/325 mg Tablet PO PRN (09:34)
--- NOTE | 2019-11-11 11:04 | CT ---
EXAM: CT Cervical Spine WO Con PROVIDED CLINICAL HISTORY: Preop for cervical fusion COMPARISON: MRI cervical spine 11/10/2019 FINDINGS: There is slight anterolisthesis of C5 on C6. Cervical alignment appears otherwise normal. Vertebral b robby heights appear preserved. ACDF changes are seen at C4-5 without evidence for hardware loosening or migration. There is fusion at the disc space and involving the right facet joint. At C2-3, there is no significant central canal or foraminal narrowing apparent. Mild left facet arthr itis. At C3-4, there is a broad-based disc bulge which effaces the spinal canal, better visualized on refer enced MRI. There is conspicuous right-sided facet arthritis and mild left-sided facet arthritis. At C4-5, there is no significant central canal or foraminal narrowing apparent. At C5-6, there is a broad-based disc bulge without significant central canal narrowing apparent. Mild bilateral foraminal narrowing. Disc space narrowing is noted. Bilateral facet arthritis. At C6-7, there is no significant central canal or foraminal narrowing apparent. At C7-T1, there is no significant central canal or foraminal narrowing apparent. Bilateral facet arth ritis. IMPRESSION: Postoperative and degenerative changes involving the cervical spine as described.
[2019-11-11 11:42] LABS: ANA Symphony (Qualitative) Negative (Negative); ANA Symphony (Quantitative) 0.1 Ratio (< 0.7 Negative); dsDNA IgG Antibody 1.1 IU/mL (<10 Negative)
[2019-11-11] MEDS ORDERED: HYDROcodone/Acetaminophen 7.5/325 mg Tablet PO PRN (11:57)
[2019-11-11] MEDS: Ketorolac Tromethamine 30 MG/ML VIAL IVP SCH ×2 (12:18→21:25)
--- NOTE | 2019-11-11 16:50 | PDOC.HOSPP ---
- Subjective Encounter Date: 11/11/19 Encounter Time: 10:15 Subjective: pt up in bed states she continue to have pain to her lower ext. - Objective Vital Signs & Weight: Vital Signs (12 hours) Temp Pulse Pulse Resp BP BP BP 11/11/19 16:26 98.4 F 92 16 77/44 L 11/11/19 16:11 98.3 F 96 16 77/49 L 11/11/19 15:30 95/65 11/11/19 11:21 97.5 F L 86 18 11/11/19 09:35 103/64 11/11/19 07:41 97.8 F 85 18 BP Pulse Ox 11/11/19 16:26 93 L 11/11/19 16:11 94 L 11/11/19 15:30 11/11/19 11:21 104/70 95 11/11/19 09:35 11/11/19 07:41 95/62 92 L Weight Weight 161 lb 1.6 oz I&O: 11/10/19 11/11/19 11/12/19 06:59 06:59 06:59 Intake Total 1650 1940 0 Output Total 1000 1850 Balance 650 90 0 Result Diagrams: 11/08/19 03:22 11/08/19 03:22 Hospitalist ROS - Review of Systems Cardiovascular: denies: chest pain, palpitations, orthopnea, paroxysmal noc. dyspnea, edema, light headedness, other Gastrointestinal: denies: nausea, vomiting, abdominal pain, diarrhea, constipation, melena, hematochezia, other Genitourinary: denies: dysuria, frequency, incontinence, hematuria, retention, other Musculoskeletal: reports: leg pain - Medication Medications: Active Medications Generic Name Dose Route Start Last Admin Trade Name Freq PRN Reason Stop Dose Admin Alprazolam 0.5 mg 11/09/19 05:45 11/11/19 15:23 Xanax PO 0.5 mg TID PRN Administration Anxiety Famotidine 20 mg 11/07/19 09:00 11/11/19 08:26 Pepcid PO 20 mg BID QUE Administration Heparin Sodium (Porcine) 5,000 units 11/07/19 09:00 11/11/19 15:23 Heparin SC 5,000 units TID QUE Administration Hydroxyzine Pamoate 25 mg 11/07/19 13:00 11/11/19 12:18 Vistaril PO 25 mg QID QUE Administration Sodium Chloride 1,000 mls @ 50 mls/hr 11/10/19 10:15 11/11/19 05:23 Normal Saline 0.9% IV 1,000 mls .Q20H QUE Administration Ketorolac Tromethamine 15 mg 11/11/19 12:00 11/11/19 12:18 Toradol IVP 11/12/19 00:00 15 mg Q6HR QUE Administration [place] Carbonate 150 mg 11/07/19 21:00 11/11/19 15:23 [place] Carbonate PO 150 mg TID QUE Administration Pregabalin 200 mg 11/07/19 15:00 11/11/19 15:22 Lyrica PO 200 mg TID QUE Administration Quetiapine Fumarate 800 mg 11/08/19 21:00 11/10/19 22:26 Seroquel PO 800 mg HS QUE Administration Sodium Chloride 10 ml 11/10/19 09:00 11/11/19 08:28 Flush - Normal Saline IVF Not Given Q12HR QUE Venlafaxine HCl 150 mg 11/08/19 09:00 11/11/19 08:28 Effexor Xr PO 150 mg DAILY QUE Administration Zolpidem Tartrate 10 mg 11/07/19 16:25 11/09/19 23:51 Ambien PO 10 mg HS PRN Administration Insomnia - Exam Heart: negative: RRR, no murmur, no gallops, no rubs, normal peripheral pulses, irregular, diminshed peripheral pulses, murmur present, II/IV, III/IV Respiratory: negative: CTAB, no wheezes, no rales, no ronchi, normal chest expansion, no tachypnea, normal percussion, rales, rhonchi, tachypneic, wheezes Gastrointestinal: negative: soft, non-tender, non-distended, normal bowel sounds , no palpable masses, no hepatomegaly, no splenomegaly, no bruit, no guarding, no rigidity, tender to palpation, distended, diminished bowl sounds, voluntary guarding Extremities - other findings: limited movement to her right lower ext, pain on touch to her legs Neurological - other findings: weakness to her bilateral lower legs Hosp A/P (1) Bipolar disorder Code(s): F31.9 - BIPOLAR DISORDER, UNSPECIFIED Status: Chronic Qualifiers: Current bipolar episode type: depressed Current episode severity: unspecified (2) Depression Code(s): F32.9 - MAJOR DEPRESSIVE DISORDER, SINGLE EPISODE, UNSPECIFIED Status : Chronic (3) HTN (hypertension) Code(s): I10 - ESSENTIAL (PRIMARY) HYPERTENSION Status: Chronic (4) Generalized weakness Code(s): R53.1 - WEAKNESS Status: Acute (5) Iron deficiency anemia Code(s): D50.9 - IRON DEFICIENCY ANEMIA, UNSPECIFIED Status: Acute (6) Polypharmacy Code(s): Z79.899 - OTHER CUSTODIAL (CURRENT) DRUG THERAPY Status: Acute - Plan will check esr/crp/chantelle. pt states her symptoms have been going on for the past 6m and have gradually gotten worse. she is on many medication which could cause her generalized weakness. will get neurology to see her. she is also anemic and has not had a colonoscopy. will check iron studies and stool for occult blood. will need rehab. 11/07 mild elevated ck, stool for occult pending. will get xray of right knee. MRI brain/cervical and thorax has been ordered. CHANTELLE pending. 11/08 MRI of knee indicates complex multidirectional lateral meniscal tear. will get ortho to see her. she will need the mri brain/thorax and cervical. stool for occult is negative. will give her some iv iron. 11/09 pt to undergo MRI today. ortho consult pending. will give her iv iron. unclear dx about her generalized weakness. No sure if this is medication related vs degenerative. Her chantelle is pending. 11/10 neurosurgery consulted given MRI finding. will increase her pain meds and do lower ext doppler. ekg reviewed no acute findings. pt going for surgery in am. spoke with ortho who states pt does not need any acute intervention and will follow up as outpatient.
--- NOTE | 2019-11-11 18:39 | ULT ---
BILATERAL LOWER EXTREMITY VENOUS ULTRASOUND: 11/11/19 COMPARISON: None. HISTORY: Lower extremity pain. TECHNIQUE: Multiplanar lala scale and color Doppler images were obtained in a bilateral lower extremity venous u ltrasound. Spectral analysis of the Doppler waveforms were performed. FINDINGS: The bilateral common femoral veins, profunda femoral veins, superficial femoral veins, and popliteal veins are normal in appearance without visible thrombus. These vessels demonstrate normal compression , flow, and augmentation. The posterior tibial vein and the greater saphenous veins are also patent. IMPRESSION: No evidence of DVT. POS: C
[2019-11-11 21:02] LABS: #Basophils 0.1 thou/uL (0.0-0.2); #Eosinphils 0.2 thou/uL (0.0-0.7); #Lymphocytes 1.8 thou/uL (1.20-3.40); #Monocytes 0.4 thou/uL (0.11-0.59); #Neutrophils 2.1 thou/uL (1.40-6.50); %Basophils 1.7 % (0.0-1.0); %Eosinophils 4.2 % (0.0-10.0); %Monocytes 7.9 % (0.0-10.0); %Neutrophils 46.2 % (42.0-75.0); Hemoglobin 10.3 g/dL (12.0-16.0); Mean Corpuscular HGB CONC 32.5 g/dL (32.0-36.0); Mean Corpuscular Hemoglobin 26.3 pg (27.0-31.0); Mean Corpuscular Volume 80.9 fL (78.0-98.0); Mean Platelet Volume 10.9 fL (7.4-10.4); Platelet Count 188 thou/uL (130-400); RBC Distribution Width 18.3 % (11.5-14.5); Red Blood Cell (RBC) Count 3.94 mill/uL (4.20-5.40); White Blood Cell (WBC) Count 4.5 thou/uL (4.8-10.8)
[2019-11-11] MEDS: Zolpidem Tartrate 5 MG TAB PO PRN (21:24)
--- NOTE | 2019-11-11 22:09 | CON ---
DATE OF CONSULTATION: 11/11/2019 This was a 50-minute initial consult visit in which greater than 50% of the time was spent in review of records, imaging, evaluation, examination, and formulation of a plan. The remaining time was spent in counseling and coordination of care CHIEF COMPLAINT: Arm and leg weakness, loss of ability to walk HISTORY OF PRESENT ILLNESS: Mrs. Hanson is a pleasant 44-year-old female who presents for the above complaints, which have been gradually worsening over the past several weeks. She states that her leg weakness has become so significant that she is no longer able to bear weight or ambulate. She reports low back pain. Also reports significant nondermatomal pain in her right leg, as well as occasional pain in her left thigh. She denies any neck or arm pain. She does endorse weakness and paresthesias in the bilateral arms and hands. States she is dropping objects frequently. She denies any recent preceding injuries. Patient has a prior history of C4-C5 ACDF completed approximately 20 years ago. She has not undergone any recent physical therapy or epidural steroid injections. She does not take any aspirin or blood thinners at home, but she has been on heparin while in the hospital for DVT prophylaxis given her immobilization. PHYSICAL EXAMINATION: GENERAL: The patient is awake, alert, and appropriate. She is resting in bed. No apparent distress. NECK: She has no cervical spine tenderness to palpation. Full ROM of head. EXTREMITIES: She has profound weakness throughout her upper and lower extremities bilaterally. 4/5 strength in her trapezius, deltoids, biceps, and triceps bilaterally. However, she exhibits quite good strength with bilateral hand bond runner. She has 4/5 strength in her left iliopsoas, and 4-/5 strength in her right iliopsoas. She is barely antigravity with bending of her right knee. 5/5 strength in bilateral hamstrings. 4/5 strength with both dorsiflexion and plantar flexion of both feet. Sensation to light touch is subjectively diminished throughout her extremities. Gait was not assessed. IMPRESSION: 1. Cervical stenosis with myelopathy 2. Prior history of C4-C5 ACDF, now with adjacent segment disease PLAN: Case was discussed and imaging reviewed with Dr. Wakefield. MRI of the cervical spine completed yesterday shows findings of adjacent segment disease above and below the patient's prior C4-C5 ACDF with severe stenosis at the C3-C4 and C5- C6 levels. A CT of the cervical spine without contrast was ordered for surgical planning and is consistent with prior fusion. Patient will require urgent neurosurgical intervention. Our plan is to take the patient to the OR tomorrow morning for C3-C4 and C5-C6 anterior cervical diskectomies and fusion, with removal of prior hardware and assessment of fusion at C4-C5, with re-plating of vC3-C6. Additionally, we will perform C3- C6 laminectomies and instrumented fusion with screws and rods. This plan was discussed with the patient this evening. The risks versus benefits were discussed at length. All questions were answered at this time, and the patient agrees with plan to proceed with surgery tomorrow. I have stopped heparin. NPO at midnight. Prepare surgical consent form. We will re-evaluate the patient in the morning before surgery and answer any additional questions she may have at that time. Please call for any neurologic changes or other concerns. Job ID: [id number] MTDD
[2019-11-12] MEDS: Ketorolac Tromethamine 30 MG/ML VIAL IVP SCH (00:44)
[2019-11-12] MEDS: Sodium Chloride 0.9% 1,000 ML IV SCH ×2 (00:51→17:57)
[2019-11-12 05:33] LABS: #Basophils 0.1 thou/uL (0.0-0.2); #Eosinphils 0.3 thou/uL (0.0-0.7); #Lymphocytes 1.7 thou/uL (1.20-3.40); #Monocytes 0.3 thou/uL (0.11-0.59); #Neutrophils 2.1 thou/uL (1.40-6.50); %Basophils 1.8 % (0.0-1.0); %Eosinophils 6.1 % (0.0-10.0); %Lymphocytes 38.6 % (21.0-51.0); %Monocytes 6.9 % (0.0-10.0); %Neutrophils 46.6 % (42.0-75.0); Hemoglobin 10.6 g/dL (12.0-16.0); Mean Corpuscular HGB CONC 32.1 g/dL (32.0-36.0); Mean Corpuscular Hemoglobin 26.1 pg (27.0-31.0); Mean Corpuscular Volume 81.3 fL (78.0-98.0); Mean Platelet Volume 11.4 fL (7.4-10.4); Platelet Count 195 thou/uL (130-400); RBC Distribution Width 18.4 % (11.5-14.5); Red Blood Cell (RBC) Count 4.04 mill/uL (4.20-5.40); White Blood Cell (WBC) Count 4.5 thou/uL (4.8-10.8)
[2019-11-12 05:39] LABS: PTT 35.2 SEC (22.9-36.1); Prothrombin Time 13.1 SEC (12.0-14.7)
[2019-11-12 05:55] LABS: Anion Gap 13 mmol/L (10-20); BUN (Urea Nitrogen) 19 mg/dL (7.0-18.7); Calc. Creatinine Clearance 103 mL/min (70-130); Calcium 8.8 mg/dL (7.8-10.44); Carbon Dioxide 21 mmol/L (22-29); Chloride 108 mmol/L (98-107); Estimated GFR-MDRD 78; Glucose 92 mg/dL (70-105); Potassium 4.8 mmol/L (3.5-5.1); Sodium 137 mmol/L (136-145)
[2019-11-12] MEDS ORDERED: Fentanyl 250 MCG/5 ML VIAL ONE (06:26)
[2019-11-12] MEDS ORDERED: SUGAMMADEX SODIUM 200 MG/2 ML VIAL ONE (06:26)
[2019-11-12] MEDS ORDERED: Thrombin 5000 UNITS/5 ML VIAL ONE (06:47)
[2019-11-12] MEDS ORDERED: Bacitracin Zinc Ointment 30 gm TUBE ONE (06:47)
[2019-11-12] MEDS ORDERED: Phenylephrine 10 MG/ML VIAL ONE (07:28)
[2019-11-12] MEDS ORDERED: Midazolam HCl 2 mg/2 ml Vial ONE (07:46)
[2019-11-12] MEDS ORDERED: Rocuronium Bromide 50 MG/5 ML VIAL ONE ×2 (09:34→11:50)
[2019-11-12] MEDS ORDERED: Fentanyl 100 MCG/2 ML VIAL ONE ×4 (09:36→14:30)
--- NOTE | 2019-11-12 10:28 | PRG ---
DATE OF SERVICE: 11/12/2019 Ms. Hanson is a very pleasant 44-year-old woman. She has a psychiatric history, but over the last week, has had progressive quadriparesis to the point where just looked even on exam she is barely antigravity in her upper and lower extremities. She has a history of C4-C5 ACDF couple of decades ago and MRI of the cervical spine demonstrates proximal and distal adjacent segment disease at C3-C4 and at C5-C6. She has critical stenosis at C3-C4 and less so at C5-C6, but signal abnormality and this is an emergency. As such, I have let the patient know that we have given her 1 unit of blood as she is somewhat anemic and we will plan for surgery today, which is a C3 through C6 anterior-posterior decompression fusion with removal of plate, exploration of fusion at C4-C5. Again, despite the COVID-19 risk, this is an emergency, this cannot be wait 30 days. The patient understands the goals, indications, risks, alternatives, complications of anterior-posterior neck surgery include wound infection, wound healing issues, CSF leak, the need for more surgery, temporary or permanent neurologic deficit, and temporary or permanent swallowing and breathing difficulties. She understands that if we do not do the surgery, then she will very likely progress to complete quadriplegia, this would be life-threatening cervical stenosis with circumferential stenosis and myelopathy. Job ID: [id number]
[2019-11-12] MEDS: Venlafaxine HCl XR 150 MG CAP PO SCH (10:32)
[2019-11-12] MEDS: Pregabalin 50 MG CAP PO SCH ×3 (10:32→20:55)
[2019-11-12] MEDS: Famotidine 20 MG TAB PO SCH ×2 (10:32→20:56)
[2019-11-12] MEDS: hydrOXYzine Pamoate 25 mg Capsule PO SCH ×4 (10:32→20:56)
[2019-11-12] MEDS: Lithium Carbonate 150 MG CAP PO SCH ×3 (10:32→20:57)
[2019-11-12] MEDS ORDERED: Ondansetron PF 4 MG/2 ML Vial ONE (11:13)
[2019-11-12] MEDS ORDERED: Rocuronium Bromide 10 MG/ML (10ML VIAL) ONE (11:13)
[2019-11-12] MEDS ORDERED: Ketorolac Tromethamine 30 MG/ML VIAL ONE (11:13)
[2019-11-12] MEDS ORDERED: PHENYLEPHRINE-NS 100 MCG/ML 10 ML SYRINGE ONE (11:13)
[2019-11-12] MEDS ORDERED: Lidocaine 1% PF 5 ML VIAL ONE (11:13)
[2019-11-12] MEDS ORDERED: PROPOFOL 200 MG/20 ML VIAL ONE (11:13)
[2019-11-12] MEDS ORDERED: Dexamethasone 20 MG/5 ML VIAL ONE (11:13)
[2019-11-12] MEDS ORDERED: Metoclopramide HCl 10 MG/2 ML VIAL ONE ×2 (11:50)
[2019-11-12] MEDS ORDERED: Promethazine HCl 25 MG/ML VIAL IM PRN (13:21)
[2019-11-12] MEDS ORDERED: HYDROmorphone 2 MG/ML VIAL SLOW IVP PRN (13:21)
[2019-11-12] MEDS ORDERED: Promethazine HCl 25 MG/ML VIAL SLOW IVP PRN (13:21)
[2019-11-12] MEDS ORDERED: Ondansetron HCl/PF 4 MG/2 ML Vial IVP PRN (13:21)
[2019-11-12] MEDS ORDERED: Promethazine HCl 25 MG/ML VIAL ONE (13:50)
[2019-11-12] MEDS ORDERED: CEFAZOLIN 2 GM in Premix Bag 1 BAG IVPB SCH (14:00)
[2019-11-12] MEDS ORDERED: Dexamethasone 10 MG/ML VIAL SLOW IVP SCH (14:01)
[2019-11-12 14:04] LABS: Hemoglobin 11.7 g/dL (12.0-16.0)
[2019-11-12] MEDS ORDERED: Pantoprazole 40 MG VIAL IVP SCH (14:04)
--- NOTE | 2019-11-12 14:46 | OP ---
DATE OF PROCEDURE: 11/11/2019 MANUFACTURING WORKER: Zena Dietrich PA-C Modifier 57 should be added to this surgery as the decision to operate was made on the day I saw the patient. PREPROCEDURE DIAGNOSIS: Acute on subacute decline of myelopathy with progressive quadriparesis, and proximal distal adjacent segment stenosis with history of C4-C5 surgery at another institution. POSTPROCEDURE DIAGNOSIS: Acute on subacute decline of myelopathy with progressive quadriparesis, and proximal distal adjacent segment stenosis with history of C4-C5 surgery at another institution. PROCEDURE PERFORMED: 1. C3-4, C5-C6 anterior diskectomies for decompression of spinal cord and nerve roots; placement of interbody spacer, C3-C4, C5-C6 with packed local bone autograft and allograft with plating at C3, C4, C5, C6. 2. Removal of C4-C5 hardware. 3. Exploration of spinal fusion, C4-C5. 4. Use of operative microscope. 5. C3, C4, C5, top of C6 laminectomies, partial facetectomies, foraminotomies. 6. Screw and rebecca fixation at C3, C4, C5, C6. 7. Posterolateral fusion C3-C4, C5-C6 with local bone autograft obtained from same incision and allograft. DESCRIPTION OF PROCEDURE: After informed consent was obtained the patient and the emergent nature conveyed to her, she is brought to the OR. Proper patient, pause, and identification were carried out. She was placed under excellent endotracheal anesthesia and positioned supine on the OR table. All appropriate points were padded. We identified the right anterior oblique cayla to allow for approach at C3, C4, C5, C6 segments. This region was sterilely cleansed, prepared, and draped. Proper patient, pause, and identification were carried out. The wound was opened with a combination of sharp, monopolar, and blunt dissection. We then proceeded medial to the laryngopharyngeal bundle and medial to the right carotid sheath. We identified the prevertebral layer of deep cervical fascia and scar tissue and this region was exposed along the C4-C5 anterior cervical plate and screw construct. This was removed. Intraoperative assessment of fusion occurred. The patient was fused at C4-C5. We then performed C3-C4 distraction and diskectomy at that portion. Using the microscope for microdissection, we had excellent decompression of common dural tube and C4 nerve roots. The endplates were prepared and interbody spacer packed with graft, was placed at C3-C4 for initiation of arthrodesis. We then released the distraction and did the same thing at C5-C6, decompression of spinal cord and C6 nerve roots, preparation of the endplates, and placement of interbody spacer packed with graft at C5-C6. The microscope was removed. Anterior cervical plate and screw fixation at C3, C4, C5, C6 occurred. I opted not to place screws into C4. Copious irrigation occurred throughout as did maximizing hemostasis. The wound was then closed in anatomic layers over drain. The patient then had the [place] Alice host/hostess head placed on her skull and was positioned prone in cervical spine in neutral position. A linear cayla was made over the C3-C6 region. A small amount of hair was clipped. This region was sterilely cleansed, prepared, and draped and dorsal wound was drawn out. The wound was then opened with a combination of sharp, monopolar, and blunt dissection. C3, C4, C5, C6 segments occurred. We identified the spinous processes, laminae, and facet complexes of each of the segments. We confirmed fusion as well posteriorly at C4-C5. Screws were then placed at C3, C4, C5, C6 and laminectomy performed using a standard anatomic trajectory and technique. Rods were placed. Final tightening occurred. We had excellent decompression following the laminectomy at C3-C4, C4-C5, and C5-C6 along with partial facetectomies and foraminotomies of the C4, C5, C6 nerve roots respectively. Copious irrigation occurred throughout as did maximizing hemostasis. Screws were then placed, rods were placed, and final tightening occurred. Copious irrigation occurred throughout. We maximized hemostasis. Decortication at C3-C4 and C5-C6 occurred. We did not do any fusion at C4-C5 as she was already fused. Local bone autograft obtained from same incision. Allograft was placed at C3-C4 and C5-C6 to augment fusion. Copious irrigation occurred throughout as did maximizing hemostasis. The wound was then closed in anatomic layers following the sprinkle of vancomycin powder. The patient then emerged from anesthesia. Job ID: [id number]
[2019-11-12] MEDS: Morphine 2 MG/ML SYRINGE SLOW IVP PRN ×2 (15:45→18:07)
[2019-11-12] MEDS: ALPRAZolam 0.5 MG TAB PO PRN (17:40)
[2019-11-12] MEDS ORDERED: Simethicone Chewable 80 MG TAB PO PRN (18:25)
[2019-11-12] MEDS: Simethicone Chewable 80 MG TAB PO PRN (20:54)
[2019-11-12] MEDS: Dexamethasone 4 MG in Sodium Chloride 0.9% 50 ML IVPB SCH (20:57)
[2019-11-12] MEDS: CEFAZOLIN 2 GM in Premix Bag 1 BAG IVPB SCH (20:58)
[2019-11-12] MEDS: traMADol HCl 50 MG TAB PO PRN (22:25)
[2019-11-12] MEDS: Zolpidem Tartrate 5 MG TAB PO PRN (22:26)
[2019-11-13] MEDS: Dexamethasone 4 MG in Sodium Chloride 0.9% 50 ML IVPB SCH ×5 (02:58→20:01)
[2019-11-13] MEDS: Sodium Chloride 0.9% 1,000 ML IV SCH ×2 (02:58→18:36)
[2019-11-13] MEDS: CEFAZOLIN 2 GM in Premix Bag 1 BAG IVPB SCH ×3 (03:00→19:59)
[2019-11-13 05:14] LABS: #Lymphocytes 0.5 thou/uL (1.20-3.40); #Monocytes 0.2 thou/uL (0.11-0.59); #Neutrophils 5.6 thou/uL (1.40-6.50); %Basophils 0.1 % (0.0-1.0); %Eosinophils 0.1 % (0.0-10.0); %Lymphocytes 8.2 % (21.0-51.0); %Neutrophils 88.5 % (42.0-75.0); Hemoglobin 11.3 g/dL (12.0-16.0); Mean Corpuscular HGB CONC 32.7 g/dL (32.0-36.0); Mean Corpuscular Hemoglobin 26.3 pg (27.0-31.0); Mean Corpuscular Volume 80.4 fL (78.0-98.0); Mean Platelet Volume 11.5 fL (7.4-10.4); Platelet Count 241 thou/uL (130-400); RBC Distribution Width 18.5 % (11.5-14.5); Red Blood Cell (RBC) Count 4.32 mill/uL (4.20-5.40); White Blood Cell (WBC) Count 6.3 thou/uL (4.8-10.8)
[2019-11-13] MEDS ORDERED: Dexamethasone 4 MG in Sodium Chloride 0.9% 50 ML IVPB SCH (07:15)
[2019-11-13] MEDS: ALPRAZolam 0.5 MG TAB PO PRN ×2 (07:45→15:11)
[2019-11-13] MEDS: HYDROcodone/Acetaminophen 7.5/325 mg Tablet PO PRN ×3 (07:45→20:12)
[2019-11-13] MEDS: Pregabalin 50 MG CAP PO SCH ×3 (07:45→20:00)
[2019-11-13] MEDS: Venlafaxine HCl XR 150 MG CAP PO SCH (07:46)
[2019-11-13] MEDS: Famotidine 20 MG TAB PO SCH ×2 (07:46→20:01)
[2019-11-13] MEDS: hydrOXYzine Pamoate 25 mg Capsule PO SCH ×4 (07:46→20:01)
[2019-11-13] MEDS: Lithium Carbonate 150 MG CAP PO SCH ×3 (08:19→19:59)
[2019-11-13] MEDS ORDERED: Pantoprazole 40 MG VIAL IVP SCH (09:00)
[2019-11-13] MEDS: Morphine 2 MG/ML SYRINGE SLOW IVP PRN ×3 (09:56→17:02)
[2019-11-13] MEDS: tiZANidine HCl 4 MG TAB PO PRN ×2 (11:24→21:57)
[2019-11-13] MEDS: traMADol HCl 50 MG TAB PO PRN (11:24)
--- NOTE | 2019-11-13 12:02 | PRG ---
DATE OF SERVICE: 11/13/2019 Ms. Hanson is postoperative day 1 from anterior-posterior C3-6 exploration of fusion, decompression and fusion again both anteriorly and posteriorly. She states she certainly notices an improvement in her arm and leg sensory and motor. She was barely antigravity preoperatively and is able to lift both arms higher up almost above the shoulder level with improvement in her hand cloth folder machine strength as well. She is able to bend both hips and knees up with good contraction, and while she still remains significantly myelopathic, I am very pleased with how she looks. She has a Díaz catheter indwelling. I should note from a hemodynamic standpoint, she has been stable, and from a laboratory assessment, she has chronic anemia; however, her hemoglobin this morning is 11.3. She has an anterior YOVANNY drain and that put out 25 mL. We will leave this in. She is on a Decadron taper. The [place] J collar should be worn whenever she is out of bed and her [place] collar obviously for showers. She does not need to wear the collar when she is just resting in a chair or the bed or eating. I would be fine with inpatient rehab transition tomorrow. The drain can be removed at that time. We will work on pain control today. She already takes Xanax for anxiety, and we will consider increasing this to 1 mg three times a day as needed to help with muscle spasm rather than adding yet another benzodiazepine. Overall, I am very pleased with her outcome at this point. Job ID: [id number]
--- NOTE | 2019-11-13 12:53 | PDOC.HOSPP ---
- Subjective Encounter Date: 11/13/19 Encounter Time: 11:00 Subjective: pt up in bed feels a lot better - Objective Vital Signs & Weight: Vital Signs (12 hours) Temp Pulse Resp BP Pulse Ox 11/13/19 10:46 98.7 F 99 16 115/73 96 11/13/19 08:00 16 99 11/13/19 07:04 99 11/13/19 03:43 98.5 F 99 14 110/69 99 Weight Weight 160 lb 14.999 oz I&O: 11/12/19 11/13/19 11/14/19 06:59 06:59 06:59 Intake Total 3450 1380 Output Total 1300 1375 Balance 2150 5 Result Diagrams: 11/13/19 04:38 11/12/19 05:23 Hospitalist ROS - Review of Systems Cardiovascular: denies: chest pain, palpitations, orthopnea, paroxysmal noc. dyspnea, edema, light headedness, other Gastrointestinal: denies: nausea, vomiting, abdominal pain, diarrhea, constipation, melena, hematochezia, other Genitourinary: denies: dysuria, frequency, incontinence, hematuria, retention, other - Medication Medications: Active Medications Generic Name Dose Route Start Last Admin Trade Name Freq PRN Reason Stop Dose Admin Acetaminophen 650 mg 11/06/19 22:53 11/11/19 21:19 Tylenol PO 650 mg Q4H PRN Administration Headache/Fever/Mild Pain (1-3) Hydrocodone Bitart/Acetaminophen 1 tab 11/12/19 13:34 11/13/19 07:45 [place] 7.5/325 PO 1 tab Q6H PRN Administration Severe Pain (7-10) Alprazolam 0.5 mg 11/09/19 05:45 11/13/19 07:45 Xanax PO 0.5 mg TID PRN Administration Anxiety Famotidine 20 mg 11/07/19 09:00 11/13/19 07:46 Pepcid PO 20 mg BID QUE Administration Hydroxyzine Pamoate 25 mg 11/07/19 13:00 11/13/19 12:29 Vistaril PO 25 mg QID QUE Administration Sodium Chloride 1,000 mls @ 75 mls/hr 11/10/19 10:15 11/13/19 02:58 Normal Saline 0.9% IV 1,000 mls .[id number] QUE Administration Cefazolin Sodium/Dextrose 2 gm 50 mls @ 100 mls/hr 11/12/19 20:00 11/13/19 11 :25 / Device IVPB 50 mls 0400,1200,2000 QUE Administration Dexamethasone 4 mg/ Sodium 50.4 mls @ 98.824 mls/hr 11/13/19 08:00 11/13/19 07:42 Chloride IVPB 11/14/19 19:59 50.4 mls Q6H QUE Administration [place] Carbonate 150 mg 11/07/19 21:00 11/13/19 08:19 [place] Carbonate PO 150 mg TID QUE Administration Morphine Sulfate 2 mg 11/12/19 13:34 11/13/19 12:28 Morphine SLOW IVP 2 mg Q1H PRN Administration Severe Pain (7-10) Pregabalin 200 mg 11/07/19 15:00 11/13/19 07:45 Lyrica PO 200 mg TID QUE Administration Quetiapine Fumarate 800 mg 11/08/19 21:00 11/12/19 20:56 Seroquel PO 800 mg HS [facility] Administration Simethicone 80 mg 11/12/19 18:36 11/12/19 20:54 Mylicon Chewable PO 80 mg PCHS PRN Administration Gas Pain Sodium Chloride 10 ml 11/10/19 09:00 11/12/19 21:26 Flush - Normal Saline IVF Not Given Q12HR [facility] Tizanidine HCl 4 mg 11/12/19 13:41 11/13/19 11:24 Zanaflex PO 4 mg TIDPRN PRN Administration Muscle Spasm Tramadol HCl 50 mg 11/12/19 13:34 11/13/19 11:24 Ultram PO 50 mg Q6H PRN Administration Mild Pain (1-3) Venlafaxine HCl 150 mg 11/08/19 09:00 11/13/19 07:46 Effexor Xr PO 150 mg DAILY [facility] Administration Zolpidem Tartrate 10 mg 11/07/19 16:25 11/12/19 22:26 Ambien PO 10 mg HS PRN Administration Insomnia - Exam Heart: negative: RRR, no murmur, no gallops, no rubs, normal peripheral pulses, irregular, diminshed peripheral pulses, murmur present, II/IV, III/IV Respiratory: negative: CTAB, no wheezes, no rales, no ronchi, normal chest expansion, no tachypnea, normal percussion, rales, rhonchi, tachypneic, wheezes Gastrointestinal: negative: soft, non-tender, non-distended, normal bowel sounds , no palpable masses, no hepatomegaly, no splenomegaly, no bruit, no guarding, no rigidity, tender to palpation, distended, diminished bowl sounds, voluntary guarding Skin - other findings: able to move his right lower ext and bilateral upper ext Neurological - other findings: mild weakness to lower and upper ext Hosp A/P (1) Bipolar disorder Code(s): F31.9 - BIPOLAR DISORDER, UNSPECIFIED Status: Chronic Qualifiers: Current bipolar episode type: depressed Current episode severity: unspecified (2) Depression Code(s): F32.9 - MAJOR DEPRESSIVE DISORDER, SINGLE EPISODE, UNSPECIFIED Status : Chronic (3) HTN (hypertension) Code(s): I10 - ESSENTIAL (PRIMARY) HYPERTENSION Status: Chronic (4) Generalized weakness Code(s): R53.1 - WEAKNESS Status: Acute (5) Iron deficiency anemia Code(s): D50.9 - IRON DEFICIENCY ANEMIA, UNSPECIFIED Status: Acute (6) Polypharmacy Code(s): Z79.899 - OTHER LONGTERM (CURRENT) DRUG THERAPY Status: Acute - Plan will check esr/crp/chantelle. pt states her symptoms have been going on for the past 6m and have gradually gotten worse. she is on many medication which could cause her generalized weakness. will get neurology to see her. she is also anemic and has not had a colonoscopy. will check iron studies and stool for occult blood. will need rehab. 11/07 mild elevated ck, stool for occult pending. will get xray of right knee. MRI brain/cervical and thorax has been ordered. CHANTELLE pending. 11/08 MRI of knee indicates complex multidirectional lateral meniscal tear. will get ortho to see her. she will need the mri brain/thorax and cervical. stool for occult is negative. will give her some iv iron. 11/09 pt to undergo MRI today. ortho consult pending. will give her iv iron. unclear dx about her generalized weakness. No sure if this is medication related vs degenerative. Her chantelle is pending. 4/1 neurosurgery consulted given MRI finding. will increase her pain meds and do lower ext doppler. ekg reviewed no acute findings. pt going for surgery in am. spoke with ortho who states pt does not need any acute intervention and will follow up as outpatient. / s/p anterior- posterior c3-c6 exploration of fusion, decompression and fusion both anteriorly and posteriorly. pt is overall doing well. HH is stable. vitals stable. she will need rehab. she will need outpatient colonoscopy and endoscopy for her anemia. Her stool for occult was negative.
--- NOTE | 2019-11-13 12:56 | PDOC.EVN ---
Event Note - Event Note Event Note: couple attempts made to come see pt. she was in OR.
[2019-11-13] MEDS: Simethicone Chewable 80 MG TAB PO PRN (15:11)
[2019-11-13] MEDS: Acetaminophen/Codeine 30-300mg Tablet PO PRN (18:46)
[2019-11-13] MEDS: Zolpidem Tartrate 5 MG TAB PO PRN (21:40)
[2019-11-13] MEDS: Loperamide HCl 2 MG CAP PO PRN (21:40)
[2019-11-14] MEDS: CEFAZOLIN 2 GM in Premix Bag 1 BAG IVPB SCH ×2 (04:12→11:29)
[2019-11-14] MEDS: ALPRAZolam 0.5 MG TAB PO PRN ×2 (04:18→12:05)
[2019-11-14] MEDS: HYDROcodone/Acetaminophen 7.5/325 mg Tablet PO PRN ×3 (04:18→14:03)
[2019-11-14] MEDS: Loperamide HCl 2 MG CAP PO PRN ×2 (04:18→07:44)
[2019-11-14] MEDS: Sodium Chloride 0.9% 1,000 ML IV SCH (06:21)
[2019-11-14] MEDS: Dexamethasone 4 MG in Sodium Chloride 0.9% 50 ML IVPB SCH (07:31)
[2019-11-14] MEDS: Pregabalin 50 MG CAP PO SCH ×2 (07:33→14:02)
[2019-11-14] MEDS: Lithium Carbonate 150 MG CAP PO SCH ×2 (07:33→14:02)
[2019-11-14] MEDS: hydrOXYzine Pamoate 25 mg Capsule PO SCH ×2 (07:33→12:05)
[2019-11-14] MEDS: Venlafaxine HCl XR 150 MG CAP PO SCH (07:34)
[2019-11-14] MEDS: Famotidine 20 MG TAB PO SCH (07:34)
[2019-11-14] MEDS: Acetaminophen/Codeine 30-300mg Tablet PO PRN (07:44)
[2019-11-14] MEDS: Simethicone Chewable 80 MG TAB PO PRN (10:15)
[2019-11-14 10:52] VITALS: BP 128/64; TEMP 98.7
[2019-11-14] MEDS: traMADol HCl 50 MG TAB PO PRN (12:09)
[2019-11-14] MEDS ORDERED: Dexamethasone 3 MG in Sodium Chloride 0.9% 50 ML IVPB SCH (20:00)
[2019-11-16] MEDS ORDERED: Dexamethasone 2 MG in Sodium Chloride 0.9% 50 ML IVPB SCH (20:00)
--- NOTE | 2019-11-17 15:42 | EKG ---
Test Reason : Blood Pressure : / mmHG Vent. Rate : 099 BPM Atrial Rate : 099 BPM P-R Int : 144 ms QRS Dur : 094 ms QT Int : 370 ms P-R-T Axes : 058 002 074 degrees QTc Int : 474 ms Normal sinus rhythm Possible Left atrial enlargement Nonspecific T wave abnormality Prolonged QT Abnormal ECG Confirmed by AMINA MATUTE DO ([id number]), dictionary editor GINGER CHILDS ([id number]) on 11/17/2019 3:41:53 PM Referred By: Confirmed By:AMINA MATUTE DO
[2019-11-18] MEDS ORDERED: Dexamethasone 1 MG in Sodium Chloride 0.9% 50 ML IVPB SCH (20:00)
== END 2019-11-14 14:12 | DRG 453 ==
LOC: ERS 13:15 → OBSVTOIN 16:12 → 2NO 16:12 → ERS 19:13 → T4-B 11-09 16:35 → SURG A 11-12 14:55
PROVIDERS: ADMIT Internal Medicine; ATTEND Internal Medicine
PROC: 0RG20A0 Fusion of 2 or more Cervical Vertebral Joints with Interbody Fusion Device, Anterior Approach, Anterior Column, Open Approach (ICD-10-PCS; principal; 2019-11-11)
PROC: 0RG2071 Fusion of 2 or more Cervical Vertebral Joints with Autologous Tissue Substitute, Posterior Approach, Posterior Column, Open Approach (ICD-10-PCS; 2019-11-11)
PROC: 00NW0ZZ Release Cervical Spinal Cord, Open Approach (ICD-10-PCS; 2019-11-11)
PROC: 01N10ZZ Release Cervical Nerve, Open Approach (ICD-10-PCS; 2019-11-11)
PROC: 0RB30ZZ Excision of Cervical Vertebral Disc, Open Approach (ICD-10-PCS; 2019-11-11)
PROC: 0QB33ZZ Excision of Left Pelvic Bone, Percutaneous Approach (ICD-10-PCS; 2019-11-11)
PROC: 0RP104Z Removal of Internal Fixation Device from Cervical Vertebral Joint, Open Approach (ICD-10-PCS; 2019-11-11)
PROC: 30233N1 Transfusion of Nonautologous Red Blood Cells into Peripheral Vein, Percutaneous Approach (ICD-10-PCS; 2019-11-11)
PROC: 4A11X4G Monitoring of Peripheral Nervous Electrical Activity, Intraoperative, External Approach (ICD-10-PCS; 2019-11-11)
DX: M48.02 Spinal stenosis, cervical region (principal); G92 Toxic encephalopathy; G82.51 Quadriplegia, C1-C4 complete; G95.89 Other specified diseases of spinal cord; G89.29 Other chronic pain; F41.9 Anxiety disorder, unspecified; F31.9 Bipolar disorder, unspecified; D50.9 Iron deficiency anemia, unspecified; F13.10 Sedative, hypnotic or anxiolytic abuse, uncomplicated; Z79.899 Other long term (current) drug therapy
CPT/HCPCS: 36415; 36416; 36430; 51701; 70450; 70551; 70553; 71045; 72125; 72141; 72146; 72156; 72157; 76000; 80048; 80053; 80178; 80306; 80307; 81003; 82140; 82274; 82550; 82728; 83540; 83605; 83615; 83690; 83735; 83880; 84443; 84484; 84703; 85025; 85060; 85610; 85652; 85730; 86038; 86140; 86225; 86850; 86900; 86901; 93005; 93010; 93970; 96361; 96374; A4353; C1713; C1768; C1776; J0690; J1100; J1644; J1885; J2001; J2060; J2250; J2270; J2310; J2370; J2405; J2550; J2704; J2765; J2916; J3010; J3370; J3490; P9016; Q0177

== ENCOUNTER 2020-01-05 00:36 | Inpatient (IN) | payer BC ==
[2020-01-05] MEDS ORDERED: Lorazepam 2 MG/ML VIAL ONE (01:42)
[2020-01-05] MEDS ORDERED: Ondansetron PF 4 MG/2 ML Vial ONE (03:09)
[2020-01-05] MEDS ORDERED: Morphine 4 MG/ML VIAL ONE (03:09)
[2020-01-05 03:10] LABS: #Basophils 0.1 thou/uL (0.0-0.2); #Eosinphils 0.3 thou/uL (0.0-0.7); #Lymphocytes 1.4 thou/uL (1.20-3.40); #Monocytes 0.3 thou/uL (0.11-0.59); #Neutrophils 4.8 thou/uL (1.40-6.50); %Basophils 1.1 % (0.0-1.0); %Eosinophils 4.9 % (0.0-10.0); %Lymphocytes 20.6 % (21.0-51.0); %Neutrophils 68.5 % (42.0-75.0); Hemoglobin 12.4 g/dL (12.0-16.0); Mean Corpuscular HGB CONC 31.9 g/dL (32.0-36.0); Mean Corpuscular Volume 91.1 fL (78.0-98.0); Mean Platelet Volume 10.9 fL (7.4-10.4); Platelet Count 181 thou/uL (130-400); RBC Distribution Width 18.6 % (11.5-14.5); Red Blood Cell (RBC) Count 4.26 mill/uL (4.20-5.40)
[2020-01-05 03:18] LABS: Bilirubin Negative (Negative); Blood, Urine Negative (Negative); Clarity Clear (Clear); Glucose, Urine (Dipstick) Normal (Negative); Leukocyte Negative Leu/uL (Negative); Nitrite Negative (Negative); Protein, Urine (Dipstick) Negative (Neg-Trace); Urobilinogen Normal mg/dL (Less than 2)
[2020-01-05 03:32] LABS: ALT (SGPT) 12 U/L (8-55); AST (SGOT) 22 U/L (5-34); Albumin 3.7 g/dL (3.5-5.0); Alkaline Phosphatase 133 U/L (40-110); Anion Gap 12 mmol/L (10-20); BUN (Urea Nitrogen) 6 mg/dL (7.0-18.7); Bilirubin, Total 0.4 mg/dL (0.2-1.2); Calc. Creatinine Clearance 0 mL/min (70-130); Calcium 9.5 mg/dL (7.8-10.44); Carbon Dioxide 24 mmol/L (22-29); Chloride 105 mmol/L (98-107); Estimated GFR-MDRD 80; Globulin 3.2 g/dL (2.4-3.5); Glucose 108 mg/dL (70-105); Potassium 3.8 mmol/L (3.5-5.1); Protein, Total 6.9 g/dL (6.0-8.3); Sodium 137 mmol/L (136-145)
[2020-01-05] MEDS ORDERED: Acetaminophen 325 MG TAB PO PRN (04:43)
[2020-01-05] MEDS ORDERED: Senokot S 8.6-50 MG TAB PO PRN (04:43)
[2020-01-05] MEDS ORDERED: Ondansetron PF 4 MG/2 ML Vial IVP PRN (04:45)
[2020-01-05] MEDS ORDERED: Ketorolac Tromethamine 30 MG/ML VIAL ONE (04:49)
[2020-01-05 06:13] VITALS: BMI 26.9
[2020-01-05] MEDS: Dextrose 5 % And 0.9 % NaCl 1,000 ML IV SCH ×2 (06:22→20:29)
--- NOTE | 2020-01-05 06:27 | HP ---
CHIEF COMPLAINT: Lower extremity weakness. HISTORY OF PRESENT ILLNESS: The patient is a 44-year-old female, who recently underwent an anterior cervical diskectomy and fusion, who presents to the hospital with complaints of lower extremity weakness and urinary retention x1 day. The patient states that after her last hospitalization she did well with rehab, went home, had home health and therapy for about two weeks. However, she states that for the past couple of weeks she has not been able to ambulate very well. She stated that her lower extremity weakness worsened since Saturday. To the point that she was really unable to get up and walk, it felt really weak to her lower extremity. She denied any urinary incontinence, however, stated that she has not had a bowel movement for the past 3 or 4 days. She further states that she has normally been able to urinate, however has not been able to urinate since one day. She denies any fevers or chills, any nausea, vomiting, or diarrhea. She also states that she starts having pain starting in her cervical area radiating all the way down to her lower extremities and feels that her pain is one of the things that is causing her to have impaired mobility. The patient denies any falls at home; however, she has been noticing generalized lower extremity weakness. PAST MEDICAL HISTORY: As of the followin. She has a history of anxiety, bipolar, and depression. 2. She has a high blood pressure. PAST SURGICAL HISTORY: She has had a C3-C4 and C5-C6 anterior diskectomies for decompression of spinal cord and nerve roots; placement of interbody spacer, C3, C4, C5, C6 with packed local bone autograft and allograft with plating at C3, C4, C5 and C6. She also had removal of C4 and C5 hardware. SOCIAL HISTORY: She denies any alcohol use, drug use, or smoking history. She is a full code. She lives with her . REVIEW OF SYSTEMS: All negative except for the ones mentioned above in the HPI. PHYSICAL EXAMINATION: VITAL SIGNS: As of the following; temperature of 98.7, respirations 12, sats 97% on room air, heart rate 87, and blood pressure 141/86. GENERAL: She is awake, alert, and oriented x3. Does not appear in any distress. CV: S1 and S2 present. No murmurs, rubs, or gallops. LUNGS: Clear to auscultation. No rhonchi or wheezes noted. ABDOMEN: Soft and nontender. Bowel sounds are present x2. EXTREMITIES: She has +1 lower extremity edema. Pedal pulses are present x2. NEUROLOGIC: Neurovascular-xiao, she has limited range of motion to her lower extremity and she has 4/5 strength to her bilateral upper extremity. Sensation to upper extremity intact, to lower extremity decreased significantly. The patient denies any lower lumbar spine tenderness. She does have some cervical spine tenderness. LABORATORY RESULTS: As of the following; WBCs of 7.0, hemoglobin of 12.4, hematocrit of 38.8, platelets of 181. Chemistry; sodium of 137, potassium of 3.8, BUN of 6, creatinine 0.78. Her urine appears to be normal. She did have a cervical MRI that did have some narrowing, some [id number] stenosis. This was discussed with Neurosurgery by the ER doc, who did not think it was significant for any acute intervention per the neurosurgical physician's assistant store director. ASSESSMENT AND PLAN: The patient is a 44-year-old female, who presents to the hospital with lower extremity weakness. 1. Lower extremity weakness could be possible lumbar stenosis. The patient had cervical stenosis in the past. Now, she complains with lower extremity weakness. ER has called MRI and to do a lumbar scan to see if there is any acute narrowing that requires intervention. She also has significant urinary retention. Díaz catheter has been placed. We will continue to monitor. We will get PT/OT to evaluate the patient. The patient possibly also will need placement. 2. Bipolar disorder. The patient's lithium level was elevated. We will hold off on the lithium for now, and we will continue her home medications. We will recheck a lithium later on today. 3. Deep venous thrombosis prophylaxis. We will put the patient on SCDs. Job ID: [id number]
--- NOTE | 2020-01-05 07:58 | MRI ---
PRELIMINARY REPORT/[facility]/EMERGENCY AFTER HOURS PROCEDURE: PROCEDURE: MR Cervical Spine without Contrast. HISTORY: Weakness to all extremities with difficult ambulation. TECHNIQUE: Exam was done in multiple sequences and projections without contrast. COMPARISONS: None . TECHNICAL QUALITY: Satisfactory . FINDINGS: Alignment: Within normal limits . Vertebral body height: Limited evaluation of vertebral body heights due to artifact from previous ant erior and posterior fusion with orthopedic hardware without definite decrease in height. Marrow signal: Signal voids related to previous anterior and posterior fusion throughout the cervical spine. Cervical cord: Mild cord compression probable C7-T1 level related to herniated disc. Possible mild c ord edema at the level. No syrinx or cord mass. C1-C2: Within normal limits . C2-C3: No evidence of spinal canal stenosis or neuroforaminal narrowing . C3-C4: No evidence of spinal canal stenosis or neuroforaminal narrowing . C4-C5: No evidence of spinal canal stenosis or neuroforaminal narrowing . C5-C6: No evidence of spinal canal stenosis or neuroforaminal narrowing . C6-C7: No evidence of spinal canal stenosis or neuroforaminal narrowing . C7-T1: Herniated disc with moderate spinal canal stenosis and mild cord compression. Paraspinal soft tissue: No significant abnormality . Other: None . IMPRESSION: Herniated disc with moderate spinal canal stenosis and mild cord compression C7-T1 level. CT cervical spine may be helpful for correlation due to limited evaluation of vertebral body levels due to artifact. Previous anterior and posterior fusion C3-C7 levels. ELECTRONICALLY SIGNED BY: Baldo Lora MD January 05, 2020 3:25:22 AM CDT FINAL REPORT MRI CERVICAL SPINE: COMPARISON: 11/10/2019. HISTORY: Unable to walk. FINDINGS: Extensive interval postsurgical change with anterior fusion plate at C3, C4, C5, C6. There are stone layout marker ior postsurgical changes compatible with laminectomies as well as screws traversing the facet joints. Extensive associated metallic susceptibility artifact limits evaluation. Overall appropriate T1 marrow signal intensity of the cervical vertebrae. No fracture. No significant STIR hyperintensity to suggest vertebral body edema or ligamentous injury. Visualized brain parenchyma, cervicomedullary junction, cervical cord and the upper thoracic cord hav e a normal size and signal intensity. On postcontrast images, no abnormal enhancement with regards to the visualized brain parenchyma, spinal cord and cervical vertebrae. From C2-C3 through C5-C6, there is no significant central canal stenosis or significant neural forami nal narrowing. At C6-C7 there is a broad-based disc bulge with at least moderate central canal stenosis. Limited evaluation of the neural foramina. IMPRESSION: Report is essentially in minor disagreement with initial report by [facility]. There is a disc herniation with at least moderate central canal stenosis and deformity of the cervical cord. However, this finding appears to be at the C6-C7 level, rather than the C7-T1 level as commented upon in this report by [facility]. Transcribed Date/Time: 01/05/2020 8:40 AM
--- NOTE | 2020-01-05 08:10 | MRI ---
PRELIMINARY REPORT/[facility]/EMERGENCY AFTER HOURS PROCEDURE: PROCEDURE: MR lumbar spine without contrast. HISTORY: Extremity weakness and urinary retention. TECHNIQUE: Exam was done in multiple sequences and projections without contrast. COMPARISONS: None . TECHNICAL QUALITY: Satisfactory . FINDINGS: Alignment: Grade 1 anterolisthesis L4-L5 level. Vertebral body height: Within normal limits . Marrow signal: Degenerative endplate changes L4-L5 disc level. Conus medullaris: Within normal limits behind the L1 vertebral body . L1-L2: No evidence of spinal canal stenosis or neuroforaminal n arrowing . Mild disc desiccation. L2-L3: No evidence of spinal canal stenosis or neuroforaminal narrowing . Mild disc desiccation. L3-L4: Moderate spinal canal stenosis related to mild bulging dis c and facet/ligamentous hypertrophy. Mild disc desiccation. L4-L5: Moderate to severe spinal canal stenosis related to bulging disc, patient's grade 1 anterolist hesis, and moderate bilateral facet/ligamentous hypertrophy posteriorly. Moderate disc desiccation and narrowing. L5-S1: No evidence of spinal canal stenosis or neuroforaminal narrowing . Paraspinal s oft tissue: No significant abnormality . Other: None . IMPRESSION: Moderate to severe spinal canal stenosis L4-L5 and moderate spinal canal stenosis L3-L4 i s described above. Grade 1 anterolisthesis L4-L5. Multilevel degenerated discs ELECTRONICALLY SIGNED BY: Baldo Lora MD January 05, 2020 5:47:37 AM CDT FINAL REPORT MRI LUMBAR SPINE NONCONTRAST: HISTORY: Extremity weakness. Urinary retention. COMPARISON: None. FINDINGS: Grade 1 anterolisthesis of L4 upon L5. Fluid signal intensity in the L4-L5 disc space with endplate c hanges. Findings may be on the basis of degenerative change. However, the possibility of discitis osteomyelitis cannot be excluded in the appropriate clinical setting. There are T2 hyperintensities p osterior to the right L4-L5 facet joint which may represent paraspinal synovial cysts. Appropriate signal intensity in the visualized solid organs and paraspinal muscles. With the exception of the changes at L4-L5, appropriate T1 marrow signal intensity. There is 6.6 mm o f anterolisthesis of L4 upon L5. Conus medullaris terminates at the inferior aspect of L1. T12-L1:No high-grade central canal stenosis or high-grade neural foraminal narrowing. L1-L2:No high-grade central canal stenosis or high-grade neural foraminal narrowing. L2-L3:Broad-based disc bulge abuts the thecal sac. Mild to moderate ligamentum flavum thickening and facet hypertrophy. Resultant mild to moderate central canal stenosis. Mass effect and partial obscuration of bilateral traversing L3 nerve roots. Neural foramina are patent. L3-L4:Minimal desiccation with minimal loss of disc space height. Broad-based disc bulge, ligament fl avum thickening and facet hypertrophy result in mild to moderate central canal stenosis. Right neural foramen is mildly narrowed. Moderate left neural foraminal narrowing. L4-L5:Broad-based disc bulge, ligament flavum thickening and facet hypertrophy result in moderate to severe central canal stenosis. Severe right and cter-oz-[id number] left neural foraminal narrowing. L5-S1:Adequate disc hydration. No significant central canal stenosis or significant neural foraminal narrowing. IMPRESSION: 1. This report is in agreement with initial report by [facility]. There are degenerative change s at L3-L4 and L4-L5 as described in the report by [facility]. 2. There is fluid signal intensity noted in the right aspect of the L4-L5 disc which may be on the ba sis of degenerative change. However, in the appropriate clinical setting discitis/osteomyelitis cannot be excluded. Correlate clinically. Postcontrast imaging if clinically warranted. Results of study discussed with Dr. Overton 01/05/2020 at 8:08 AM Code CR Transcribed Date/Time: 01/05/2020 8:46 AM
[2020-01-05] MEDS: hydrOXYzine Pamoate 25 mg Capsule PO SCH ×4 (09:00→20:19)
[2020-01-05] MEDS ORDERED: ALPRAZOLAM 0.5 MG PO SCH (09:00)
[2020-01-05] MEDS: Pregabalin 50 MG CAP PO SCH ×3 (09:00→20:19)
[2020-01-05] MEDS: Venlafaxine HCl XR 150 MG CAP PO SCH (09:00)
[2020-01-05] MEDS ORDERED: Magnevist 469MG/ML 20 ML VIAL ONE (09:59)
--- NOTE | 2020-01-05 10:44 | CON ---
DATE OF CONSULTATION: HISTORY OF PRESENT ILLNESS: Ms. Hanson is a 44-year-old woman, known to our practice for inpatient ACDF with Dr. Wakefield at C3-C4 back at the first week of November for myelopathy. She presents now to the emergency department overnight for progressive weakness in her legs, difficulty with ambulation, as well as increased pain in the arms and legs that culminated in increased severity enough that she decided she needed to come into the ER overnight. She reports having recovered quite nicely from her prior surgery with Dr. Wakefield, having spent time in rehab and then home health until Saturday when things started to decline. MRIs were ordered of the cervical spine and lumbar spine. Lumbar spine revealed severe degenerative disease at the L4-S1 segment, most severe between L4 and L5. She has advanced degenerative disk disease at the disk of L4, but also posteriorly in the facet joints, there is also degree of scoliosis there. She has severe central canal stenosis at L3-L4 and L4-L5, although not enough that I would expect any urinary retention, that she reportedly had as well. For this reason, a Díaz was inserted. She also had an MRI of the cervical spine, which reveals new early grade 1 spondylolisthesis at C6-C7 with new disk herniation, which appears to impinge upon the spinal cord at that level, axial cut somewhat difficult to evaluate secondary to artifact. Bedside examination reveals some loss of dexterity in the bilateral hands. This is hard to discern whether this is chronic from her prior myelopathy that the initial surgery was done back in November or if it relates to changes in her cervical spine. She also has extraordinary difficulty raising her legs off the bed. She is able to at the knees and raise her feet off the bed, but not much more than that. She has swelling and ulcerations in both of her great toes, more significant on the right than the left. Sounds like she does have some peripheral vascular disease. Sensation is grossly intact to the bilateral lower extremities in all distributions. She has a positive Monique in bilateral hands, but has been getting decreased reflexes at the patellar tendons. I discussed the possibility of surgical correction for the cervical spine and/or the lumbar spine, with Dr. Quiñones further this morning. She is currently n.p.o., we will keep her that way for now. We will plan to discuss with Dr. Quiñones later this morning to format a game plan for treatment. Job ID: [id number]
[2020-01-05 12:19] LABS: Pregnancy Test - Urine (BHCG) Negative (Negative); Pregu Control Background? CLEAR/WHITE (CLR/WHITE); Pregu Control Bar Appear? YES (CONTROL BAR); Specific Gravity 1.007 (1.002-1.036)
[2020-01-05] MEDS: Morphine 4 MG/ML VIAL SLOW IVP PRN ×2 (12:36→20:28)
[2020-01-05] MEDS: tiZANidine HCl 4 MG TAB PO PRN ×2 (13:15→22:19)
--- NOTE | 2020-01-05 13:43 | CT ---
CT lumbar spine without contrast: HISTORY: Low back pain bilateral lower extremity weakness. COMPARISON: MRI lumbar spine on 01/05/2020 FINDINGS: The visualized retroperitoneal structures demonstrate a normal nonenhanced CT appearance. Slight grade 1 anterolisthesis of L4 on L5 measuring 4 mm. No fracture is seen involving the lumbar s pine. Mild right convex curvature lumbar spine is present. L1-2: No significant central canal or neural foraminal narrowing is seen. L2-3: Mild disc osteophyte complex and facet hypertrophic changes are present. There is mild asymmetr ic widening of the left sided facet joint at this level with respect to the right side. Fluid signal intensity was seen in the facet joint on MRI examination which may related to prominent facet degenerative changes. Mild central canal narrowing is present. The neural foramina are patent at this level. L3-4: Minimal height loss of the intervertebral disc with vacuum phenomenon seen in the intervertebra l discs. Broad-based disc osteophyte complex is present. There is severe facet hypertrophic changes greater on the left. Asymmetric widening of the left sided facet joint is present at this level. Flui d signal intensity was seen in the facet joint on recent MRI exam, and findings are likely attributable to prominent degenerative changes. There is ligamentous thickening at this level. Findin gs result in mild right and moderate to severe left-sided neural foraminal narrowing. Moderate to severe central canal narrowing is present. Mild narrowing of the right subarticular zone is present. L4-5: Loss of intervertebral disc height with vacuum phenomenon seen in the intervertebral disc. Grad e 1 anterolisthesis is present at this level as described above. There is subchondral sclerosis and subchondral irregularity and cystic changes involving the right aspect of the endplates of the L4 and L5 vertebral bodies. There is greater degree of narrowing of the intervertebral disc space laterally on the right. These findings are favored to represent prominent degenerative changes at thi s level. Osteomyelitis in the correct clinical scenario cannot be entirely excluded. There is a right-sided pars interarticularis defect. Disc osteophyte complex is present with prominent facet hyp ertrophic changes present. Severe right-sided neural foraminal narrowing as well as severe central canal narrowing is present. There is also severe narrowing of the right lateral recess at this level. Mild left-sided neural foraminal narrowing is seen. L5-S1: No significant central canal or neural foraminal narrowing is seen. IMPRESSION: 1. Multilevel degenerative changes much greater at the L3-4 and L4-5 levels. These findings were also seen on recent MRI exam. 2. Irregularity of the L4-5 endplates on the right. There are Schmorl's nodes in this region as well as vacuum phenomenon in the intervertebral discs. These findings are favored to represent severe endplate degenerative changes. Discitis and osteomyelitis in the correct clinical scenario cannot be entirely excluded but again are less favored. 3. Asymmetric widening of the left-sided facet joints at the L2-3 and L3-4 levels which are favored t o be secondary to severe facet hypertrophic changes. Fluid was seen in the facet joints on recent MRI lumbar spine. 4. Minimal grade 1 anterolisthesis of L4 on L5. Facet hypertrophic changes are present at this level, and there is a unilateral right-sided pars defect. 5.. Right convex rotoscoliosis lumbar spine.
--- NOTE | 2020-01-05 14:00 | CT ---
EXAM: CT cervical spine PROVIDED CLINICAL HISTORY: Preoperative evaluation prior to cervical fusion. Patient unable to walk. TECHNIQUE: Contiguous axial CT images are obtained through the cervical spine from the skull base to the T2 leve l. Sagittal and coronal reformatted images are provided. COMPARISON: CT cervical spine on 11/11/2019 and MRI cervical spine on 01/05/2020 FINDINGS: Postoperative changes related to anterior cervical fusion with interval revision of postsurgical brizuela ge compared to study on 11/11/2019. On prior examination, there was anterior cervical fusion at the C4-5 level. There is now evidence of anterior cervical fusion with anterior plate and screws transfix ing the C3-4, C4-5, and C5-6 levels. Posterior screws and interlocking rods also transfix these levels. The right-sided C3 pedicular screw extends into the right-sided facet joint. Similar findings are present at the C4-5 and C5-6 levels. Laminectomy defects are seen posteriorly at the level of the postoperative change. Intradiscal prostheses are present at the C3-4 and C5-6 levels. There is a symmetric degree of widening of the facet joints at the C5-6 level. No fracture or subluxation is seen involving the cervical spine. There is limited evaluation of the central canal at the level of postoperative change due to signific ant streak artifact. However, no significant bony encroachment is seen involving the central canal or neural foramina. Recent MRI examination reports disc herniation at the C6-7 level. No prevertebral soft tissue swelling apparent. Visualized lung apices appear clear. Subcentimeter low-attenuation lesion is again seen in the right lobe of thyroid gland also noted on p rior CT exam. IMPRESSION: No evidence for fracture or traumatic subluxation. Postoperative changes cervical spine. Mild symmetric widening of the facet joints at the C5-6 level a re present. Posterior screws appear to extend into the facet joints on the right at the C3-4 and C5-C6 levels. Please see MRI cervical spine for further details.
[2020-01-05] MEDS: Enoxaparin Sodium 40 MG/0.4 ML SYRINGE SC SCH (17:04)
[2020-01-05] MEDS: ALPRAZolam 0.5 MG TAB PO SCH (20:19)
[2020-01-05] MEDS: Zolpidem Tartrate 5 MG TAB PO PRN (22:19)
[2020-01-06] MEDS: Morphine 4 MG/ML VIAL SLOW IVP PRN (05:31)
[2020-01-06 06:53] LABS: Anion Gap 9 mmol/L (10-20); BUN (Urea Nitrogen) 9 mg/dL (7.0-18.7); Calc. Creatinine Clearance 105 mL/min (70-130); Calcium 8.6 mg/dL (7.8-10.44); Carbon Dioxide 25 mmol/L (22-29); Chloride 109 mmol/L (98-107); Estimated GFR-MDRD 80; Glucose 96 mg/dL (70-105); Potassium 3.6 mmol/L (3.5-5.1); Sodium 139 mmol/L (136-145)
[2020-01-06 07:23] LABS: #Eosinphils 0.2 thou/uL (0.0-0.7); #Lymphocytes 1.9 thou/uL (1.20-3.40); #Monocytes 0.3 thou/uL (0.11-0.59); #Neutrophils 1.7 thou/uL (1.40-6.50); %Basophils 0.8 % (0.0-1.0); %Eosinophils 5.7 % (0.0-10.0); %Lymphocytes 45.4 % (21.0-51.0); %Monocytes 7.6 % (0.0-10.0); %Neutrophils 40.5 % (42.0-75.0); Hemoglobin 11.1 g/dL (12.0-16.0); Mean Corpuscular Hemoglobin 28.7 pg (27.0-31.0); Mean Corpuscular Volume 92.5 fL (78.0-98.0); Mean Platelet Volume 11.1 fL (7.4-10.4); Platelet Count 151 thou/uL (130-400); RBC Distribution Width 18.8 % (11.5-14.5); Red Blood Cell (RBC) Count 3.86 mill/uL (4.20-5.40); White Blood Cell (WBC) Count 4.3 thou/uL (4.8-10.8)
[2020-01-06] MEDS: Dextrose 5 % And 0.9 % NaCl 1,000 ML IV SCH ×2 (10:01→20:09)
[2020-01-06] MEDS: ALPRAZolam 0.5 MG TAB PO SCH ×3 (10:02→20:08)
[2020-01-06] MEDS: hydrOXYzine Pamoate 25 mg Capsule PO SCH ×4 (10:02→20:08)
[2020-01-06] MEDS: Pregabalin 50 MG CAP PO SCH ×3 (10:03→20:06)
[2020-01-06] MEDS ORDERED: Midazolam HCl 2 mg/2 ml Vial ONE (10:20)
[2020-01-06] MEDS ORDERED: Fentanyl 100 MCG/2 ML VIAL ONE ×3 (10:21→12:23)
--- NOTE | 2020-01-06 10:44 | PRG ---
DATE OF SERVICE: 01/06/2020 Ms. Hanson is a 44-year-old female known to our practice for multilevel ACDF and posterior cervical decompression and fusion performed in the beginning of November. She went to rehab thereafter and had recovery from her myelopathy. She was continuing to use a walker and had some lower extremity weakness as well as some hand clumsiness, but she felt clearly this had improved since her initial surgery. She presented to the ER yesterday morning due to a progressive course of weakness over the 2 weeks prior. She noted that particularly on Saturday, there was a more abrupt change in her neurologic function. She was admitted to the hospitalist service, they performed imaging and Neurosurgery was consulted. The imaging revealed surgical construct in the cervical spine that was intact. She has, however, developed adjacent segment spondylolisthesis at C6-7 with associated kyphosis and what appears to be disk herniation causing cord compression. This is the most likely culprit for her more recent decline. She also had an MRI of the lumbar spine which shows very advanced lumbar degenerative disk disease at L4-5 with signal change in the disk space and synovial cyst. These are associated with a grade 1 spondylolisthesis and moderate central canal stenosis. Given her course of neurologic decline over the past couple of weeks, I felt it important to treat the neck at C6-7. While she has disease in the lumbar spine, this is of a lesser concern given her clinical exam. I met with her this morning and discussed again with her, her symptoms, all of her imaging and the plan moving forward which will be a single-level ACDF at C6-7 to decompress the spinal canal. Our plan will be for her to go to rehab thereafter, and then in the distant time, we could reevaluate her for her low back pathology. All the risks, benefits and alternatives of surgical procedure were discussed. She asked questions, I answered and I believe she is informed with respect to our procedure. Job ID: [id number]
[2020-01-06] MEDS ORDERED: SUGAMMADEX SODIUM 200 MG/2 ML VIAL ONE (11:06)
[2020-01-06] MEDS ORDERED: Non-Formulary Item 1 EACH (Zolpidem Tartrate [Ambien] 10 MG) PO PRN (11:26)
--- NOTE | 2020-01-06 11:29 | PDOC.HOSPP ---
- Subjective Encounter Date: 01/06/20 Encounter Time: 11:25 Subjective: f/u for LE weakness likely due to cervical cord compression noted on CT of C- spine. Current plans for decompression per Neurosurgery. - Objective Vital Signs & Weight: Vital Signs (12 hours) Temp Pulse Resp BP Pulse Ox 01/06/20 08:00 99 01/06/20 07:59 97.9 F 76 15 116/79 99 Weight Weight 162 lb 1.6 oz I&O: 01/05/20 01/06/20 01/07/20 06:59 06:59 06:59 Intake Total 3045 Output Total 1100 Balance 1945 Result Diagrams: 01/06/20 06:17 01/06/20 06:17 Additional Labs: Laboratory Tests 01/05/20 01/05/20 01/05/20 03:02 04:12 14:02 Urine Test Negative [place] 1.349 H 1.191 Radiology Reviewed by me: Yes (MRI C-spine - broad based disc bulge with mod canal stenosis) Hospitalist ROS - Medication Medications: Active Medications Generic Name Dose Route Start Last Admin Trade Name Freq PRN Reason Stop Dose Admin Alprazolam 0.5 mg 01/05/20 21:00 01/06/20 10:02 Xanax PO Not Given TID QUE Enoxaparin Sodium 40 mg 01/05/20 17:00 01/05/20 17:04 Lovenox SC 40 mg 1700 QUE Administration Hydroxyzine Pamoate 25 mg 01/05/20 09:00 01/06/20 10:02 Vistaril PO Not Given QID [facility] Dextrose/Sodium Chloride 1,000 mls @ 75 mls/hr 01/05/20 04:45 01/06/20 10:01 D5 0.9% Ns IV Not Given .[id number] QUE Morphine Sulfate 4 mg 01/05/20 04:45 01/06/20 05:31 Morphine SLOW IVP 4 mg Q6H PRN Administration Moderate to Severe Pain (6-10) Pregabalin 200 mg 01/05/20 09:00 01/06/20 10:03 Lyrica PO Not Given TID QUE Quetiapine Fumarate 800 mg 01/05/20 21:00 01/05/20 20:25 Seroquel PO 800 mg HS QUE Administration Senna/Docusate Sodium 2 tab 01/05/20 04:43 01/05/20 20:26 Senokot S PO 2 tab BID PRN Administration Constipation Tizanidine HCl 4 mg 01/05/20 04:45 01/05/20 22:19 Zanaflex PO 4 mg Q8H PRN Administration Muscle Spasm Venlafaxine HCl 150 mg 01/05/20 09:00 01/05/20 09:00 Effexor Xr PO Not Given DAILY QUE Zolpidem Tartrate 10 mg 01/05/20 21:00 01/05/20 22:19 Ambien PO 10 mg HS PRN Administration Insomnia - Exam General Appearance: NAD, awake alert Eye: PERRL, anicteric sclera ENT: normocephalic atraumatic, no oropharyngeal lesions Neck: supple, no JVD, no thyromegaly Neck - other findings: surgical dressing in place Heart: RRR, no murmur, no gallops, no rubs, normal peripheral pulses Heart - other findings: S1, S2 Respiratory: CTAB, no wheezes, no rales, no ronchi, normal chest expansion Gastrointestinal: soft, non-tender, non-distended, normal bowel sounds, no palpable masses Extremities: no cyanosis, no clubbing, no edema Skin: normal turgor, no lesions Neurological: cranial nerve grossly intact Neurological - other findings: BUE/LE weakness Musculoskeletal: normal tone Psychiatric: normal affect, A&O x 3 Hosp A/P (1) Cervical disc herniation Code(s): M50.20 - OTHER CERVICAL DISC DISPLACEMENT, UNSP CERVICAL REGION Status: Acute Plan: C6-C7 disc involvement, decompression with ACDF today (2) Lower extremity weakness Code(s): R29.898 - OTH SYMPTOMS AND SIGNS INVOLVING THE MUSCULOSKELETAL SYSTEM Status: Acute Qualifiers: Laterality: bilateral Qualified Code(s): R29.898 - Other symptoms and signs involving the musculoskeletal system Plan: Secondary to #1, see above, PT/OT, Rehab screening (3) Generalized weakness Code(s): R53.1 - WEAKNESS Status: Chronic (4) Bipolar disorder Code(s): F31.9 - BIPOLAR DISORDER, UNSPECIFIED Status: Chronic Qualifiers: Current bipolar episode type: depressed Current episode severity: unspecified Plan: Resume home medication regimen - Plan PT/OT, social media campaign manager, incentive spirometry, out of bed/ambulate, DVT proph w/ SCDs Stable overall Continue pain control DVT ppx Rehab evaluation pending Continue IVF's
[2020-01-06] MEDS ORDERED: Lithium Carbonate 150 MG CAP PO SCH (11:45)
[2020-01-06] MEDS ORDERED: Dexamethasone 20 MG/5 ML VIAL ONE (12:17)
[2020-01-06] MEDS ORDERED: Lidocaine 1% PF 5 ML VIAL ONE (12:17)
[2020-01-06] MEDS ORDERED: Rocuronium Bromide 10 MG/ML (10ML VIAL) ONE (12:17)
[2020-01-06] MEDS ORDERED: PROPOFOL 200 MG/20 ML VIAL ONE (12:17)
[2020-01-06] MEDS ORDERED: Ketorolac Tromethamine 30 MG/ML VIAL ONE (12:17)
[2020-01-06] MEDS ORDERED: Succinylcholine Chloride 20 MG/ML 10 ml SYRINGE FS ONE (12:17)
[2020-01-06] MEDS ORDERED: PHENYLEPHRINE-NS 100 MCG/ML 10 ML SYRINGE ONE (12:17)
[2020-01-06] MEDS ORDERED: Ondansetron PF 4 MG/2 ML Vial ONE (12:17)
[2020-01-06] MEDS ORDERED: HYDROmorphone 2 MG/ML VIAL ONE (12:23)
[2020-01-06] MEDS ORDERED: HYDROmorphone 2 MG/ML VIAL SLOW IVP PRN (12:26)
[2020-01-06] MEDS ORDERED: Promethazine HCl 25 MG/ML VIAL IM PRN (12:26)
[2020-01-06] MEDS ORDERED: Promethazine HCl 25 MG/ML VIAL SLOW IVP PRN (12:26)
[2020-01-06] MEDS ORDERED: Meperidine HCl/PF 25 MG/ML VIAL SLOW IVP PRN (12:26)
--- NOTE | 2020-01-06 13:20 | OP ---
DATE OF PROCEDURE: 01/05/2020 LABORER [employer] REFINERY: David Cuevas PA-C INDICATION: Prevent neurologic decline. DIAGNOSIS: Adjacent level spondylolisthesis with disk herniation with spinal cord compression with neurologic decline. PROCEDURE PERFORMED: Anterior cervical diskectomy and fusion, C6-C7. ANESTHESIA: General. DESCRIPTION OF PROCEDURE: The patient was brought into the operating room and placed under general anesthesia. She was placed on table in the supine position, being careful to maintain her head in a neutral position. A transverse incision was planned around the C6-C7 area. This area was prepped and draped. Following an appropriate preoperative pause, the incision was created. The underlying platysma muscles were identified and incised. A blunt tissue plane was identified, which was substantially scarred from the patient's operation nearly 2 months ago. After dissecting through scar, we were able to gain access to the prevertebral space, where the inferior aspect of the patient's prior plate was identified. The C6-C7 space was then identified and the self-retaining retractors were placed and an annulotomy was performed in the disk space. All disk material as well as anterior and posterior osteophytes were removed. There was soft tissue disk present posteriorly and compressive against the spinal canal. This was carefully removed. After decompressing the segment, a 7-mm lordotic PEEK cage packed with allograft and autograft material was placed in the interbody space. The wound was then irrigated. Hemostasis was maintained throughout. The wound was then closed in anatomic layers and a pressure dressing was applied. There were no known procedural complications. Job ID: [id number]
[2020-01-06] MEDS ORDERED: Acetaminophen/Codeine 30-300mg Tablet PO PRN (14:49)
[2020-01-06] MEDS ORDERED: Bisacodyl 10 MG SUPP PR PRN (14:49)
[2020-01-06] MEDS ORDERED: diphenhydrAMINE 50 MG/ML VIAL IVP PRN (14:49)
[2020-01-06] MEDS: CEFAZOLIN 2 GM in Premix Bag 1 BAG IVPB SCH (16:50)
[2020-01-06] MEDS: Enoxaparin Sodium 40 MG/0.4 ML SYRINGE SC SCH (16:51)
[2020-01-06] MEDS: Sodium Chloride 0.9% 1,000 ML IV SCH (16:51)
[2020-01-06] MEDS: Venlafaxine HCl XR 150 MG CAP PO SCH (16:58)
[2020-01-06] MEDS: Lithium Carbonate 150 MG CAP PO SCH ×2 (16:59→20:08)
[2020-01-06] MEDS: Acetaminophen/Codeine 30-300mg Tablet PO PRN ×2 (18:23→21:32)
[2020-01-06] MEDS: Zolpidem Tartrate 5 MG TAB PO PRN (21:33)
[2020-01-07] MEDS: CEFAZOLIN 2 GM in Premix Bag 1 BAG IVPB SCH (00:35)
[2020-01-07] MEDS: Acetaminophen/Codeine 30-300mg Tablet PO PRN ×3 (05:36→20:43)
[2020-01-07] MEDS: Sodium Chloride 0.9% 1,000 ML IV SCH ×2 (05:37→18:26)
[2020-01-07] MEDS ORDERED: Sodium Chloride 0.9% 500 ML IVPB SCH ×2 (09:00→11:15)
--- NOTE | 2020-01-07 09:44 | PDOC.HOSPP ---
- Subjective Encounter Date: 01/07/20 Encounter Time: 09:40 Subjective: f/u s/p ACDF C6-C7 POD #1. Some pain in neck but tolerated po intake this am. No fever. Nursing reported low BP tx with NS bolus 500ml. - Objective Vital Signs & Weight: Vital Signs (12 hours) Temp Pulse Resp BP Pulse Ox 01/07/20 07:44 98.3 F 69 14 97/63 93 L 01/07/20 04:00 97.8 F 68 14 91/52 L 95 01/06/20 23:57 98.2 F 89 16 97/56 L 95 Weight Weight 162 lb 1.6 oz I&O: 01/06/20 01/07/20 01/08/20 06:59 06:59 06:59 Intake Total 3045 1450 Output Total 1100 825 Balance 1945 625 Result Diagrams: 01/06/20 06:17 01/06/20 06:17 Additional Labs: Laboratory Tests 01/05/20 01/05/20 01/05/20 03:02 04:12 14:02 Urine Test Negative [place] 1.349 H 1.191 Hospitalist ROS - Medication Medications: Active Medications Generic Name Dose Route Start Last Admin Trade Name Freq PRN Reason Stop Dose Admin Acetaminophen/Codeine Phosphate 2 tab 01/06/20 14:49 01/07/20 05:36 Tylenol #3 PO 2 tab Q3H PRN Administration Moderate Pain (4-6) Alprazolam 0.5 mg 01/05/20 21:00 01/06/20 20:08 Xanax PO 0.5 mg TID QUE Administration Enoxaparin Sodium 40 mg 01/05/20 17:00 01/06/20 16:51 Lovenox SC 40 mg 1700 QUE Administration Hydroxyzine Pamoate 25 mg 01/05/20 09:00 01/06/20 20:08 Vistaril PO 25 mg QID QUE Administration Dextrose/Sodium Chloride 1,000 mls @ 75 mls/hr 01/05/20 04:45 01/06/20 20:09 D5 0.9% Ns IV Not Given .[id number] QUE Sodium Chloride 1,000 mls @ 75 mls/hr 01/06/20 14:49 01/07/20 05:37 Normal Saline 0.9% IV 1,000 mls .[id number] QUE Administration [place] Carbonate 150 mg 01/06/20 15:00 01/06/20 20:08 [place] Carbonate PO 150 mg TID QUE Administration Morphine Sulfate 4 mg 01/05/20 04:45 01/06/20 05:31 Morphine SLOW IVP 4 mg Q6H PRN Administration Moderate to Severe Pain (6-10) Pregabalin 200 mg 01/05/20 09:00 01/06/20 20:06 Lyrica PO 200 mg TID QUE Administration Quetiapine Fumarate 800 mg 01/05/20 21:00 01/06/20 20:07 Seroquel PO 800 mg HS QUE Administration Senna/Docusate Sodium 2 tab 01/05/20 04:43 01/05/20 20:26 Senokot S PO 2 tab BID PRN Administration Constipation Tizanidine HCl 4 mg 01/05/20 04:45 01/05/20 22:19 Zanaflex PO 4 mg Q8H PRN Administration Muscle Spasm Venlafaxine HCl 150 mg 01/05/20 09:00 01/06/20 16:58 Effexor Xr PO Not Given DAILY QUE Zolpidem Tartrate 10 mg 01/05/20 21:00 01/06/20 21:33 Ambien PO 10 mg HS PRN Administration Insomnia - Exam General Appearance: NAD, awake alert Eye: PERRL, anicteric sclera ENT: normocephalic atraumatic, no oropharyngeal lesions Neck: supple, no JVD, no thyromegaly Neck - other findings: surgical dressing in place anteriorly Heart: RRR, no murmur, no gallops, no rubs, normal peripheral pulses Heart - other findings: S1, S2 Respiratory: CTAB, no wheezes, no rales, no ronchi, normal chest expansion Gastrointestinal: soft, non-tender, non-distended, normal bowel sounds, no palpable masses Extremities: no cyanosis, no clubbing, no edema Skin: normal turgor Neurological: cranial nerve grossly intact, no new deficit Neurological - other findings: BUE/LE weakness Musculoskeletal: normal tone, generalized weakness Psychiatric: normal affect, A&O x 3 Hosp A/P (1) Hypotension Status: Acute Plan: Suspect hypovolemic, continue IVF's, no antihypertensives, serial BP monitoring (2) Cervical disc herniation Code(s): M50.20 - OTHER CERVICAL DISC DISPLACEMENT, UNSP CERVICAL REGION Status: Acute Plan: s/p C6-C7 ACDF POD #1, continue local wound care, pain control (3) Lower extremity weakness Code(s): R29.898 - OTH SYMPTOMS AND SIGNS INVOLVING THE MUSCULOSKELETAL SYSTEM Status: Acute Qualifiers: Laterality: bilateral Qualified Code(s): R29.898 - Other symptoms and signs involving the musculoskeletal system Plan: Anticipate improvement post-op but will need inpt rehab for structured therapy (4) Generalized weakness Code(s): R53.1 - WEAKNESS Status: Chronic (5) Bipolar disorder Code(s): F31.9 - BIPOLAR DISORDER, UNSPECIFIED Status: Chronic Qualifiers: Current bipolar episode type: depressed Current episode severity: unspecified - Plan PT/OT, psych social worker, incentive spirometry, out of bed/ambulate, DVT proph w/ SCDs Repeat NS bolus x 1 now No antihypertensives Continue pain control as clinically indicated DVT ppx Rehab evaluation pending Continue IVF's Colace 100mg BID PRN AM lab: CBC
[2020-01-07] MEDS: hydrOXYzine Pamoate 25 mg Capsule PO SCH ×4 (09:49→20:44)
[2020-01-07] MEDS: Lithium Carbonate 150 MG CAP PO SCH ×3 (09:49→20:44)
[2020-01-07] MEDS: Venlafaxine HCl XR 150 MG CAP PO SCH (09:49)
[2020-01-07] MEDS: ALPRAZolam 0.5 MG TAB PO SCH ×2 (09:49→18:05)
[2020-01-07] MEDS: Pregabalin 50 MG CAP PO SCH ×3 (09:49→20:43)
[2020-01-07] MEDS: Dextrose 5 % And 0.9 % NaCl 1,000 ML IV SCH ×2 (13:19→18:13)
[2020-01-07] MEDS ORDERED: Sodium Chloride 0.9% 1,000 ML IV SCH (13:45)
[2020-01-07 17:38] LABS: SARS-CoV-2 MS2 Positive; SARS-CoV-2 N Gene Negative; SARS-CoV-2 S Gene Negative; SARS-CoV-2 orf1ab Negative
[2020-01-07] MEDS: Enoxaparin Sodium 40 MG/0.4 ML SYRINGE SC SCH (18:05)
[2020-01-07] MEDS: XANAX 0.5 MG PO SCH (20:44)
[2020-01-07] MEDS: Zolpidem Tartrate 5 MG TAB PO PRN (20:47)
[2020-01-08] MEDS: Sodium Chloride 0.9% 1,000 ML IV SCH (01:24)
[2020-01-08] MEDS: Dextrose 5 % And 0.9 % NaCl 1,000 ML IV SCH ×2 (01:24→10:16)
[2020-01-08 05:59] LABS: Band 2 % (5-11); Eosinophils 6 % (0-10); Lymphocytes 50 % (21-51); MDiff Complete? YES; Mean Corpuscular HGB CONC 31.5 g/dL (32.0-36.0); Mean Corpuscular Hemoglobin 28.9 pg (27.0-31.0); Mean Corpuscular Volume 91.9 fL (78.0-98.0); Mean Platelet Volume 10.6 fL (7.4-10.4); Monocytes 5 % (0-10); Neutrophil 36 % (42-75); Platelet Count 155 thou/uL (130-400); Platelet Morphology Comment Appears Adequate; RBC Distribution Width 18.7 % (11.5-14.5); Red Blood Cell (RBC) Count 3.82 mill/uL (4.20-5.40); White Blood Cell (WBC) Count 4.7 thou/uL (4.8-10.8)
[2020-01-08] MEDS: Acetaminophen/Codeine 30-300mg Tablet PO PRN ×4 (08:51→19:58)
[2020-01-08] MEDS: Pregabalin 50 MG CAP PO SCH ×2 (08:51→15:10)
[2020-01-08] MEDS: Lithium Carbonate 150 MG CAP PO SCH ×2 (10:15→15:10)
[2020-01-08] MEDS: XANAX 0.5 MG PO SCH (10:16)
[2020-01-08] MEDS: hydrOXYzine Pamoate 25 mg Capsule PO SCH ×3 (10:16→16:38)
[2020-01-08] MEDS: Venlafaxine HCl XR 150 MG CAP PO SCH (10:16)
--- NOTE | 2020-01-08 10:45 | PDOC.HOSPP ---
- Subjective Encounter Date: 01/08/20 Encounter Time: 10:35 Subjective: f/u s/p ACDF C6-C7 POD #3. States moving upper extremities easier today. Some neck pain but overall feels better. - Objective Vital Signs & Weight: Vital Signs (12 hours) Temp Pulse Resp BP BP Pulse Ox 01/08/20 07:20 98.1 F 69 14 103/71 98 01/08/20 03:52 97.7 F 68 18 96/63 97 01/08/20 00:24 98 F 84 16 90/58 L 95 Weight Weight 162 lb 1.6 oz I&O: 01/07/20 01/08/20 01/09/20 06:59 06:59 06:59 Intake Total 1450 5075 Output Total 825 950 Balance 625 4125 Result Diagrams: 01/08/20 05:20 01/06/20 06:17 Additional Labs: Laboratory Tests 01/05/20 01/05/20 01/05/20 03:02 04:12 14:02 Urine Test Negative [place] 1.349 H 1.191 Hospitalist ROS - Medication Medications: Active Medications Generic Name Dose Route Start Last Admin Trade Name Freq PRN Reason Stop Dose Admin Acetaminophen/Codeine Phosphate 2 tab 01/06/20 14:49 01/08/20 08:51 Tylenol #3 PO 2 tab Q3H PRN Administration Moderate Pain (4-6) Enoxaparin Sodium 40 mg 01/05/20 17:00 01/07/20 18:05 Lovenox SC 40 mg 1700 QUE Administration Hydroxyzine Pamoate 25 mg 01/05/20 09:00 01/08/20 10:16 Vistaril PO 25 mg QID QUE Administration Sodium Chloride 1,000 mls @ 75 mls/hr 01/06/20 14:49 01/08/20 01:24 Normal Saline 0.9% IV Not Given .[id number] QUE Dextrose/Sodium Chloride 1,000 mls @ 125 mls/hr 01/07/20 16:30 01/08/20 10:16 D5 0.9% Ns IV 1,000 mls .Q8H QUE Administration [place] Carbonate 150 mg 01/06/20 15:00 01/08/20 10:15 [place] Carbonate PO 150 mg TID QUE Administration Morphine Sulfate 4 mg 01/05/20 04:45 01/06/20 05:31 Morphine SLOW IVP 4 mg Q6H PRN Administration Moderate to Severe Pain (6-10) Xanax Xr 0.5mg 1 each 01/07/20 21:00 01/08/20 10:16 PO 1 each BID QUE Administration Pregabalin 200 mg 01/05/20 09:00 01/08/20 08:51 Lyrica PO 200 mg TID QUE Administration Quetiapine Fumarate 800 mg 01/05/20 21:00 01/07/20 20:43 Seroquel PO 800 mg HS QUE Administration Senna/Docusate Sodium 2 tab 01/05/20 04:43 01/05/20 20:26 Senokot S PO 2 tab BID PRN Administration Constipation Tizanidine HCl 4 mg 01/05/20 04:45 01/05/20 22:19 Zanaflex PO 4 mg Q8H PRN Administration Muscle Spasm Venlafaxine HCl 150 mg 01/05/20 09:00 01/08/20 10:16 Effexor Xr PO Not Given DAILY QUE Zolpidem Tartrate 10 mg 01/05/20 21:00 01/07/20 20:47 Ambien PO 10 mg HS PRN Administration Insomnia - Exam General Appearance: NAD, awake alert Eye: PERRL, anicteric sclera ENT: normocephalic atraumatic, no oropharyngeal lesions Neck: supple, no JVD, no thyromegaly Neck - other findings: anterior neck surgical dressing in place Heart: RRR, no murmur, no gallops, no rubs, normal peripheral pulses Heart - other findings: S1, S2 Respiratory: CTAB, no wheezes, no rales, no ronchi, normal chest expansion Gastrointestinal: soft, non-tender, non-distended, normal bowel sounds, no palpable masses Extremities: no cyanosis, no clubbing, no edema Skin: normal turgor Neurological: cranial nerve grossly intact, no new deficit Neurological - other findings: weakness of bilat UE's Musculoskeletal: normal tone, generalized weakness Psychiatric: normal affect, A&O x 3 Hosp A/P (1) Hypotension Status: Acute Plan: Slow improvement, continue IVF's, remains asymptomatic (2) Cervical disc herniation Code(s): M50.20 - OTHER CERVICAL DISC DISPLACEMENT, UNSP CERVICAL REGION Status: Acute Plan: s/p C6-C7 ACDF POD #3, pain control, PT/OT (3) Lower extremity weakness Code(s): R29.898 - OTH SYMPTOMS AND SIGNS INVOLVING THE MUSCULOSKELETAL SYSTEM Status: Acute Qualifiers: Laterality: bilateral Qualified Code(s): R29.898 - Other symptoms and signs involving the musculoskeletal system Plan: See above (4) Generalized weakness Code(s): R53.1 - WEAKNESS Status: Chronic (5) Bipolar disorder Code(s): F31.9 - BIPOLAR DISORDER, UNSPECIFIED Status: Chronic Qualifiers: Current bipolar episode type: depressed Current episode severity: unspecified - Plan plan discussed w/ family, PT/OT, group social worker, incentive spirometry, out of bed/ambulate, DVT proph w/SCDs Continue IVF's No antihypertensives Continue pain control as clinically indicated DVT ppx Rehab evaluation pending Colace 100mg BID PRN
[2020-01-08 15:00] VITALS: BP 103/60; TEMP 97.6
[2020-01-08] MEDS ORDERED: Docusate 100 MG CAP PO SCH (15:15)
[2020-01-08] MEDS: Enoxaparin Sodium 40 MG/0.4 ML SYRINGE SC SCH (16:38)
[2020-01-08] MEDS: tiZANidine HCl 4 MG TAB PO PRN (16:38)
--- NOTE | 2020-01-09 02:22 | DIS ---
DATE OF ADMISSION: 01/05/2020 DATE OF DISCHARGE: 01/08/2020 DISCHARGE DIAGNOSES: 1. Cervical disk herniation with bilateral upper and lower extremity weakness, status post C6 on C7 ACDF. 2. Hypotension, transient postoperatively. 3. Generalized weakness. 4. Bipolar disorder. CONSULTATIONS: Dr. Quiñones with Neurosurgery. PERTINENT LABORATORY AND X-RAY FINDINGS: Complete metabolic profile within normal limits. CBC showed a white blood cell count ranged between 4.3 to 7.0, hemoglobin ranged between 11.0 to 12.4. Urinalysis negative. Urine beta-hCG negative, 01/05/2020. [place] level ranged between 1.349 to 1.191. COVID-19 PCR not detected, 01/07/2020. Cervical spine MRI dated 01/05/2020, showed broad-based disk bulge with moderate central canal stenosis at C6 and C7. Lumbar spine MRI dated 01/05/2020, showed moderate to severe spinal canal stenosis L4 on L5 and L3 on L4. CT of the cervical spine dated 01/05/2020, showed no fracture or dislocation. Postoperative changes noted of the cervical spine. Multilevel degenerative changes noted. See dictated report for MRI of the cervical spine. HOSPITAL COURSE: The patient was initially admitted after presenting with increasing upper and lower extremity weakness with urinary retention. The patient underwent extensive evaluation including multiple imaging studies of the cervical and lumbar spine showing evidence of cord compression at the C6 on C7 level. Neurosurgical Service was consulted at which point, the patient was taken for anterior cervical diskectomy and fusion at C6 on C7 on 01/06/2020. Postoperatively, the patient was noted with hypotension, receiving IV fluids with overall correction of the hypotension. The patient received general supportive management including pain control and local care for surgical wound. Due to the patient's upper and lower extremity weakness, the patient was deemed an appropriate candidate for ongoing skilled care including inpatient rehabilitation, has been approved to transfer to inpatient rehabilitation on 01/08/2020. I have examined the patient at the time of discharge and discussed followup instructions. The patient verbalizes understanding and agreement ready for discharge on 01/08/2020. DISCHARGE MEDICATIONS: 1. Alprazolam XR 0.5 mg p.o. t.i.d. 2. Hydroxyzine 25 mg p.o. q.i.d. 3. [place] carbonate 150 mg p.o. t.i.d. 4. Lyrica 200 mg p.o. t.i.d. 5. Seroquel 800 mg p.o. at bedtime. 6. Tizanidine 4 mg p.o. q.8 hours p.r.n. 7. Venlafaxine 150 mg p.o. daily. 8. Vortioxetine 10 mg p.o. daily. 9. Ambien 10 mg p.o. at bedtime. 10. Tylenol No. 3 two tabs p.o. q.3 hours p.r.n. pain. 11. Dulcolax 10 mg per rectum q.12 hours p.r.n. 12. Colace 100 mg p.o. daily. 13. Lovenox 40 mg subcutaneously daily. 14. Zofran 4 mg IV push q.6 hours p.r.n. FOLLOWUP: The patient may follow up with her primary care provider, Dr. Shira Rich, after discharge from inpatient rehabilitation. The patient will follow up with Dr. Gordon Quiñones with Neurosurgical Services. CONDITION ON DISCHARGE: Stable. ACTIVITY: Ad-sameer. No lifting over 15 pounds. DIET: Regular. CODE STATUS: Full. DISPOSITION: Transfer to [facility]patient Rehabilitation, 01/08/2020. Job ID: [id number]
[2020-01-09] MEDS ORDERED: Docusate 100 MG CAP PO SCH (09:00)
== END 2020-01-08 20:15 | DRG 472 ==
LOC: ERS 00:36 → T4-B 04:19 → SURG A 01-06 16:20
PROVIDERS: ADMIT Internal Medicine; ATTEND Internal Medicine
PROC: 0RG10A0 Fusion of Cervical Vertebral Joint with Interbody Fusion Device, Anterior Approach, Anterior Column, Open Approach (ICD-10-PCS; principal; 2020-01-05)
PROC: 0RT30ZZ Resection of Cervical Vertebral Disc, Open Approach (ICD-10-PCS; 2020-01-05)
DX: M43.12 Spondylolisthesis, cervical region (principal); M50.023 Cervical disc disorder at C6-C7 level with myelopathy; F31.9 Bipolar disorder, unspecified; F41.9 Anxiety disorder, unspecified; M50.223 Other cervical disc displacement at C6-C7 level; R53.1 Weakness; M48.061 Spinal stenosis, lumbar region without neurogenic claudication; I95.81 Postprocedural hypotension; Z98.1 Arthrodesis status
CPT/HCPCS: 36415; 72125; 72131; 72148; 72156; 76000; 80048; 80053; 80178; 81003; 81025; 85007; 85025; 85027; 87635; A9579; C1776; J0690; J1100; J1170; J1650; J1885; J2001; J2060; J2250; J2270; J2405; J2704; J3010; J7030; J7042; Q0177; U0003

== ENCOUNTER 2020-01-28 18:08 | Inpatient (IN) | payer BC, OTHER ==
[2020-01-28] MEDS ORDERED: traMADol HCl 50 MG TAB PO PRN (18:34)
[2020-01-28] MEDS ORDERED: Bisacodyl 10 MG SUPP PR PRN (18:34)
[2020-01-28] MEDS ORDERED: Acetaminophen 325 MG TAB PO PRN (18:34)
[2020-01-28] MEDS ORDERED: Fleet Enema 133 ML BOT PR PRN (18:34)
[2020-01-28] MEDS ORDERED: Milk Of Magnesia 30 ML UDCUP PO PRN ×2 (18:34→21:38)
[2020-01-28] MEDS ORDERED: Ondansetron PF 4 MG/2 ML Vial IVP PRN (18:34)
[2020-01-28] MEDS ORDERED: Mag-Al 1200 mg/1200 mg/30 ML UDCUP PO PRN (18:34)
[2020-01-28] MEDS: HYDROcodone/Acetaminophen 7.5/325 mg Tablet PO PRN (20:46)
[2020-01-28] MEDS ORDERED: HYDROcodone/Acetaminophen 10/325 mg Tablet PO PRN (21:25)
[2020-01-28] MEDS ORDERED: ALPRAZolam 0.5 MG TAB PO PRN (21:25)
[2020-01-28] MEDS ORDERED: Venlafaxine HCl XR 150 MG CAP PO SCH (21:30)
[2020-01-28] MEDS ORDERED: cloNIDine 0.1 MG TAB PO PRN (21:31)
[2020-01-28] MEDS ORDERED: Diabetic Tussin 200 MG/10 ML UDCUP PO PRN (21:31)
[2020-01-28] MEDS ORDERED: Zolpidem Tartrate 5 MG TAB PO PRN (21:32)
[2020-01-28] MEDS ORDERED: hydrALAZINE 20 MG/ML VIAL SLOW IVP PRN (21:37)
[2020-01-28] MEDS ORDERED: hydrOXYzine 25 MG TAB PO PRN (21:48)
[2020-01-28] MEDS ORDERED: Lithium Carbonate 150 MG CAP PO SCH (22:00)
[2020-01-28] MEDS: Sodium Chloride 0.9% 1,000 ML IV SCH (23:37)
--- NOTE | 2020-01-29 01:45 | HP ---
CHIEF COMPLAINT: Increased upper and lower extremity weakness, loss of ability to move legs, status post recent cervical surgeries. HISTORY OF PRESENT ILLNESS: Ms. Hanson is a pleasant 44-year-old female, who was well known to our team after recently undergoing anterior and posterior cervical decompression and fusion. She underwent C3-C4 and C5-C6 ACDF and assessment of prior fusion at C4-C5 with removal of hardware and replacing from C3-C6, as well as C3-C6 posterior lateral instrumented fusion on November 11, 2019. She subsequently had a disk herniation at the C6-C7 level and underwent C6-C7 ACDF with Dr. Quiñones and placement of 7 mm PEEK cage spacer and no additional anterior plating approximately three weeks ago on January 05, 2020. At this time, she presents from inpatient rehab for increased weakness in her upper and lower extremities when she woke up this morning. Up to this point, she has been undergoing intensive therapy with gradual improvement in strength. She says that she has not been walking since her second surgery, but able to stand for brief periods of time. She does note that she has had increased severity of neck pain over the last 5 days with radiation into her upper extremities. She states that the pain is more significant on the right side and involves the shoulder, arms, and hands diffusely. She also reports increased lower leg pain from the knee down today. She reports numbness and tingling involving the entire hand and fingers bilaterally, as well as decreased sensation in the lateral aspect of her lower extremity. She has weakness with hand leach runner strength and has significant difficulty picking up and grasping objects. She states that she is not able to move her legs at all upon waking up this morning. She notes that she had spasms in her legs overnight last night. She denies any recent falls or injuries or rehab. She has only been wearing her [employer] J cervical collar when participating with therapies and out of bed. Otherwise, she has not been wearing it when in bed. She has a Díaz catheter in place. She reports that she has had only three bowel movements in the recent weeks and is on medication to promote bowel movements. She states that she has been on Lovenox while at rehab. Dr. Beatty appreciated increased weakness in her upper and lower extremities on exam and ordered completion of a noncontrast cervical CT today. This revealed a focal kyphotic junction deformity at C6-C7. This is likely causing cord compression at this segment. PAST MEDICAL HISTORY: 1. Cervical stenosis with myelopathy with two recent operations within the past two and half months. 2. History of anxiety, bipolar disorder, and depression. 3. History of high blood pressure or hypertension. SOCIAL HISTORY: No tobacco use. and lives with her . The patient is full code. MEDICATIONS: See list in MAR. [place]. REVIEW OF SYSTEMS: Positive for upper and lower extremity weakness, paresthesias, and pain. Neck pain present. Otherwise, 12-point review of systems is negative. PHYSICAL EXAMINATION: GENERAL: The patient is awake, alert and appropriate, alert and oriented x3. The patient is in no apparent distress. NECK: The patient is not wearing a cervical collar upon entering the room. However, I helped her with putting on her [place] J cervical collar. She has point tenderness to palpation just right of midline at approximately the C5 level. Her anterior cervical wound is healing well without any signs of infection. There are three Steri-Strips placed across that. No dehiscence or drainage. NEUROLOGIC: Cranial nerves 2 through 12 are grossly intact. Extraocular movements are intact. Pupils are equal, round, reactive to light and accommodation bilaterally. The patient exhibits upper extremity weakness in C7 distribution. She has 4-5 strength in the triceps, hand flexion, and finger extension bilaterally. She exhibits weakness with hand leach runner strength bilaterally. She has 5-/5 strength throughout her deltoid, trapezius, biceps and hand extension bilaterally. Partial contracture of the fingers of both hands. In her lower extremities, she has 0/5 strength and no movement bilaterally. She reports subjective decreased sensation of the lateral aspect of her lower extremities bilaterally. She exhibits a beat of clonus in her feet bilaterally. LABORATORY DATA: Results pending. IMPRESSION AND DIAGNOSES: Upper and lower extremity weakness consistent with cervical stenosis with myelopathy. PLAN: This case was discussed and imaging has been reviewed with Dr. Wakefield. He does not feel that patient's PEEK implant at C6-C7 has migrated and is causing impingement of the spinal cord, rather a focal kyphotic deformity at this level is likely the culprit of spinal cord compression. I have ordered completion of MRI of the cervical spine with and without contrast be done tomorrow morning. The patient will likely require another surgery on Saturday with extension of the posterior lateral hardware down to the T2 level. The MRI will give us further information for possible surgical planning. Our team will re-evaluate the patient tomorrow. Please call for any neurologic changes or other concerns. Job ID: [id number] [id number]
[2020-01-29 01:55] VITALS: BMI 27.7
--- NOTE | 2020-01-29 03:36 | CON ---
DATE OF CONSULTATION: 01/28/2020 PRIMARY CARE PHYSICIAN: Dr. Shira Rich. PRIMARY NEURO SURGEON: Dr. Quiñones. REASON FOR CONSULTATION: Medical management. HISTORY OF PRESENT ILLNESS: The patient is a 44-year-old white female with recent cervical surgery for cervical myelopathy, presented to the hospital from inpatient rehab due to progressive weakness. She underwent a CT scan of the neck yesterday. She is currently admitted by Neurosurgery. At this time, she denies any fever, chills, double vision, blurring of vision, or new focal deficit. No chest pain or palpitations reported. She has chronic Díaz for urinary retention. She is also on Bactrim for recently diagnosed UTI, which was started on the 25 of January. PAST MEDICAL HISTORY: 1. Cervical myelopathy. 2. Urinary retention with indwelling Díaz catheter. 3. Anxiety. 4. Depression. 5. Hypertension, diet controlled. PAST SURGICAL HISTORY: Multiple cervical surgeries. ALLERGIES: NO KNOWN DRUG ALLERGIES. CURRENT HOME MEDICATIONS: The patient is on multiple medications including, 1. Taylor. 2. Seroquel. 3. Hydroxyzine. 4. Bactrim. 5. Effexor. We will confirm accurate list of medication. SOCIAL HISTORY: The patient is currently residing at inpatient rehab. She denies any alcohol, tobacco, or drug use. Lives at home with her prior to admission to rehab. FAMILY HISTORY: Negative for heart disease. REVIEW OF SYSTEMS: All other review of systems reviewed and were found negative. PHYSICAL EXAMINATION: VITAL SIGNS: Temperature 97.5 with pulse rate of 77, respirations of 18, blood pressure of 104/67, O2 saturation 97% on room air. GENERAL: A 44-year-old female, in no apparent distress. HEENT: Head, atraumatic and normocephalic. Sclerae anicteric. Moist mucous membranes. No oral lesion. NECK: Supple. No JVD. No carotid bruit. LUNGS: Clear to auscultation bilaterally with diminished air entry at bilateral bases. HEART: S1, S2 present. Regular rate and rhythm. No rubs or gallops. ABDOMEN: Soft. Bowel sounds present. No rebound or guarding. EXTREMITIES: No edema or calf tenderness. NEUROLOGIC: Chronic bilateral lower extremity weakness. The patient is, however, able to feel the sensation in the lower extremities. She continues to have tingling and numbness in the upper extremities. PSYCHIATRIC: Alert, awake, oriented x3. Normal affect. LYMPH NODES: No palpable lymph nodes in the neck. SKIN: Warm and dry. PERIPHERAL/VASCULAR: Radial pulses palpable bilaterally. MUSCULOSKELETAL: No joint swelling or tenderness. LABORATORY FINDINGS: BUN was 15 with creatinine 0.7, chloride of 106, bicarb 23, sodium 136, potassium 4.4. Platelets 221, hemoglobin 11.5. Cervical spine CT by my review showed new postoperative changes at the C6-C7. IMPRESSION: 1. Cervical myelopathy with abnormal cervical CT. Management per Primary Service. 2. Anxiety disorder. 3. Bipolar disorder. 4. Generalized depressive disorder. 5. Hypertension, diet controlled. 6. Chronic anemia, suspected due to nutritional deficiency. 7. Chronic kidney disease, stage 2. 8. Recent urinary tract infection, on Bactrim. Urine culture showed Escherichia coli, sensitive to Bactrim. 9. Physical deconditioning. 10. Chronic pain. PLAN: The patient is currently admitted under Neurosurgery Service. We will start her on SCDs for DVT prophylaxis. We will start Lovenox when okay with Primary Service. We will start her home medications including lithium, hydroxyzine, Seroquel, Lyrica, and Effexor. We will also continue Bactrim for UTI. Continue Díaz catheter for urinary retention. We will check labs in a.m. We will also add folic acid and vitamin B12. The patient is scheduled for MRI in a.m. The patient understands the above plan of care. Thank you for this consultation. We will follow with you. Job ID: [id number]
[2020-01-29 05:32] LABS: #Basophils 0.1 thou/uL (0.0-0.2); #Eosinphils 0.3 thou/uL (0.0-0.7); #Lymphocytes 2.1 thou/uL (1.20-3.40); #Monocytes 0.5 thou/uL (0.11-0.59); #Neutrophils 3.2 thou/uL (1.40-6.50); %Basophils 1.1 % (0.0-1.0); %Eosinophils 4.7 % (0.0-10.0); %Lymphocytes 34.2 % (21.0-51.0); %Monocytes 8.4 % (0.0-10.0); %Neutrophils 51.7 % (42.0-75.0); Hemoglobin 10.3 g/dL (12.0-16.0); Mean Corpuscular HGB CONC 32.1 g/dL (32.0-36.0); Mean Corpuscular Hemoglobin 29.3 pg (27.0-31.0); Mean Corpuscular Volume 91.2 fL (78.0-98.0); Mean Platelet Volume 9.7 fL (7.4-10.4); Platelet Count 201 thou/uL (130-400); RBC Distribution Width 15.3 % (11.5-14.5); Red Blood Cell (RBC) Count 3.52 mill/uL (4.20-5.40); White Blood Cell (WBC) Count 6.1 thou/uL (4.8-10.8)
[2020-01-29 05:36] LABS: PTT 30.7 sec (22.9-36.1); Prothrombin Time 13.5 sec (12.0-14.7)
[2020-01-29 05:55] LABS: ALT (SGPT) 10 U/L (8-55); AST (SGOT) 13 U/L (5-34); Albumin 3.3 g/dL (3.5-5.0); Alkaline Phosphatase 101 U/L (40-110); Anion Gap 8 mmol/L (10-20); BUN (Urea Nitrogen) 16 mg/dL (7.0-18.7); Bilirubin, Total Less than 0.2 mg/dL (0.2-1.2); CRP (Inflammatory) Less than 0.50 mg/dL (= or < 0.5); Calc. Creatinine Clearance 113 mL/min (70-130); Calcium 8.6 mg/dL (7.8-10.44); Carbon Dioxide 26 mmol/L (22-29); Chloride 107 mmol/L (98-107); Estimated GFR-MDRD 84; Globulin 2.6 g/dL (2.4-3.5); Glucose 97 mg/dL (70-105); Magnesium 1.9 mg/dL (1.6-2.6); Potassium 3.8 mmol/L (3.5-5.1); Protein, Total 5.9 g/dL (6.0-8.3); Sodium 137 mmol/L (136-145)
[2020-01-29] MEDS ORDERED: Cyanocobalamin 1000 MCG/ML VIAL IM SCH (08:00)
[2020-01-29] MEDS ORDERED: Polyethylene Glycol 3350 17 GM Packet PO SCH (09:00)
[2020-01-29] MEDS: Pregabalin 50 MG CAP PO SCH ×2 (09:11→21:59)
[2020-01-29] MEDS: Polyethylene Glycol 3350 17 GM Packet PO SCH ×2 (09:11→20:20)
[2020-01-29] MEDS: Senokot S 8.6-50 MG TAB PO SCH ×2 (09:12→20:21)
[2020-01-29] MEDS: Folic Acid 1 MG TAB PO SCH ×2 (09:12→20:21)
[2020-01-29] MEDS: Cyanocobalamin (Vitamin B-12) 1,000 MCG TAB PO SCH (09:13)
[2020-01-29] MEDS: Sulfameth/Trimethoprim DS 800-160mg TAB PO SCH ×2 (09:13→20:21)
[2020-01-29] MEDS: Sodium Chloride 0.9% 1,000 ML IV SCH ×2 (09:14→21:59)
[2020-01-29] MEDS: hydrOXYzine 25 MG TAB PO SCH ×4 (09:14→20:22)
[2020-01-29] MEDS: Ketorolac Tromethamine 30 MG/ML VIAL IVP PRN ×2 (09:17→21:37)
[2020-01-29] MEDS: HYDROcodone/Acetaminophen 7.5/325 mg Tablet PO PRN ×2 (11:19→18:41)
[2020-01-29] MEDS ORDERED: Lorazepam 1 MG TAB PO PRN (11:44)
--- NOTE | 2020-01-29 12:55 | PRG ---
DATE OF SERVICE: 01/29/2020 Ms. Hanson is known to our service. Three months ago, I did an anterior and posterior C3 through C6 decompression and fusion for quadriparesis. She did well and recovered the ability to ambulate and even went home. She then a couple of weeks ago developed distal adjacent segment stenosis with disk extrusion at C6-C7. This was operated on by my colleague, Dr. Quiñones, and the patient following anterior approach and diskectomy with placement of interbody spacer again initially did well, and yesterday we were contacted that she had become paraplegic with C7 myotomal weakness. CT scan was done, which demonstrates a distal junctional kyphosis, but the spacer remains in the disk space. Unfortunately, she has obvious incompetence of her posterior tension band despite preserving C6-C7. I let the patient know that we need to go to surgery. We are getting MRI of the cervical and thoracic spine today. We will plan on likely removal of the cap screws at C3, C4, C5, C6, a C6-C7 laminectomy, placement of new screw rebecca fixation from C3 all the way down to T2. DICTATION ENDS HERE Job ID: [id number]
[2020-01-29] MEDS: tiZANidine HCl 4 MG TAB PO PRN (13:04)
[2020-01-29 14:27] LABS: SARS-CoV-2 MS2 Positive; SARS-CoV-2 N Gene Negative; SARS-CoV-2 S Gene Negative; SARS-CoV-2 orf1ab Negative
--- NOTE | 2020-01-29 14:44 | MRI ---
MRI thoracic spine noncontrast: DATE: 01/29/2020 HISTORY: 44-year-old female with right upper extremity and right lower extremity paralysis FINDINGS: The soap slabber sagittal sequence demonstrates ACDF hardware in the anterior cervical spine, and posterior element hardware, throughout almost all levels of the C-spine. This includes interbody cage material at C6-7 which is displaced posteriorly into the spinal canal, indenting and posteriorly disp lacing the spinal cord. This is incompletely imaged on this study of the thoracic spine. This was demonstrated on the recent cervical spine CT. Regarding the thoracic spine, vertebral body heights are maintained, and bone marrow signal is normal . The thoracic spinal cord is normal in size and signal. No syrinx. Conus medullaris terminates at L1. There are tiny disc-osteophyte complexes protruding into the right ventral aspect of the spinal c anal, abutting the spinal cord, at T3-4, T4-5, and T5-6; and central and bilateral paracentral very shallow broad-based disc protrusion or disc-osteophyte complex abutting the ventral surface of the sp inal cord, at T7-8. There is no posterior cord displacement, significant central spinal canal stenosis, or high-grade neural foraminal stenosis, at any level. Mild-moderate disc space narrowing a t T7-8. IMPRESSION: 1.) Extensive postsurgical hardware throughout the cervical spine. The interbody cage at C6-7 herniat es into the spinal canal, impinging on the lower cervical spinal cord. 2) mild thoracic spondylosis. No jose angel cord compression in the thoracic spine.
[2020-01-29] MEDS ORDERED: Enoxaparin Sodium 40 MG/0.4 ML SYRINGE SC SCH (15:00)
--- NOTE | 2020-01-29 15:13 | MRI ---
CERVICAL SPINE MRI WITH AND WITHOUT CONTRAST: COMPARISON: 01/05/2020. CORRELATION: Cervical spine CT 01/28/2020. FINDINGS: Limited evaluation of the cervical spine secondary to metallic susceptibility artifact from fusion ch anges starting at C3 to the C6 level. Grossly the T1 marrow signal intensity appears to be within normal limits. There is T2 hyperintensity and STIR hyperintensity of the superior endplate of C7 whic h was not present on the previous examination. There is mild loss of vertebral body height suggesting a mild acute fracture. There is associated enhancement. Visualized brain parenchyma, cervical medullary junction, cervical cord and the upper thoracic cord h ave a normal size and signal intensity. Postcontrast images: There is no evidence of abnormal enhancement with regards to the visualized brai n parenchyma and spinal cord. There does appear to be predominantly posterior enhancement involving the thecal sac/epidural space at the C6 and C7 level which corresponds to the site of recent surgery. Postsurgical changes are favored. There is mild associated T2 hyperintensity. A developing infected fluid collection cannot be entirely excluded. There are stable posterior decompression laminectomy defects at C3-C4, C4-C5 and C5-C6. STIR images demonstrate mild edema involving the anterior paraspinal soft tissues at C6 and C7 which may represent recent change. Correlate with surgical history. C2-C3: No evidence of significant central canal stenosis or significant neural foraminal narrowing. C3-C4: Disc prosthesis. No significant central canal stenosis. Mild right and left foraminal narrowin g due to uncovertebral hypertrophy. C4-C5: Disc prosthesis. No significant central canal stenosis or significant neural foraminal narrowi ng. C5-C6: Disc prosthesis. No significant central canal stenosis or significant neural foraminal narrowi ng. C7-T1: There appears to be abnormal signal intensity which effaces the subarachnoid base. There is mo derate to severe central canal stenosis, without signal abnormality in the cord. Mild bilateral neural foraminal narrowing. IMPRESSION: Interval fusion changes at C6-C7. There is abnormal signal intensity along the anterior epidural spac e likely representing a displaced disc prosthesis, better demonstrated on recent CT. There is resultant moderate to severe central canal stenosis. There is a subtle focus of T2 hyperintensity wit h associated enhancement along the posterior epidural space at C6 and C7. Findings may represent postsurgical change. A developing infected fluid collection cannot be excluded. This finding along th e posterior aspect of the thecal sac and contributes the overall degree of central canal stenosis at C6-C7. Findings of the study were conveyed to Zena Dietrich via [email or web address] 10/29/2019 at 3:13 PM. Code CR Transcribed Date/Time: 01/29/2020 3:54 PM
[2020-01-29] MEDS: Acetaminophen/Codeine 30-300mg Tablet PO PRN ×2 (15:40→21:36)
[2020-01-29] MEDS: Venlafaxine HCl XR 150 MG CAP PO SCH (20:21)
[2020-01-29] MEDS: Lithium Carbonate 150 MG CAP PO SCH (20:21)
[2020-01-30] MEDS: Sodium Chloride 0.9% 1,000 ML IV SCH ×3 (06:22→23:14)
[2020-01-30] MEDS ORDERED: Fentanyl 250 MCG/5 ML VIAL ONE (07:12)
[2020-01-30] MEDS ORDERED: Thrombin 5000 UNITS/5 ML VIAL ONE (07:17)
[2020-01-30] MEDS ORDERED: Bacitracin Zinc Ointment 30 gm TUBE ONE (07:17)
[2020-01-30] MEDS ORDERED: Sodium Chloride 0.9% 10 ML ONE ×3 (07:17→12:21)
[2020-01-30] MEDS ORDERED: Promethazine HCl 25 MG/ML VIAL IM PRN ×3 (07:33→14:50)
[2020-01-30] MEDS ORDERED: Promethazine HCl 25 MG/ML VIAL SLOW IVP PRN ×2 (07:33→14:29)
[2020-01-30] MEDS ORDERED: Ondansetron HCl/PF 4 MG/2 ML Vial IVP PRN ×2 (07:33→14:29)
[2020-01-30] MEDS ORDERED: Midazolam HCl 2 mg/2 ml Vial ONE ×2 (07:36→11:17)
--- NOTE | 2020-01-30 08:45 | PDOC.HOSPP ---
- Subjective Encounter Date: 01/29/20 Encounter Time: 10:30 Subjective: Patient seen and examined for med mngt. No CP/SOB. No new complaints. No overnight events - Objective Vital Signs & Weight: Vital Signs (12 hours) Temp Pulse Resp BP Pulse Ox 01/30/20 03:54 97.5 F L 72 16 96/63 96 01/30/20 00:30 97.3 F L 76 16 100/63 96 Weight Weight 166 lb 11.2 oz I&O: 01/29/20 01/30/20 01/31/20 06:59 06:59 06:59 Intake Total 1400 Output Total 1150 Balance 250 Result Diagrams: 01/29/20 05:20 01/29/20 05:20 Additional Labs: Laboratory Tests 01/29/20 01/29/20 05:20 05:20 Vitamin B12 234 Folate 4.50 L Hospitalist ROS - Review of Systems Respiratory: denies: cough, dry, shortness of breath, hemoptysis, SOB with excertion, pleuritic pain, sputum, wheezing, other Cardiovascular: denies: chest pain, palpitations, orthopnea, paroxysmal noc. dyspnea, edema, light headedness, other Gastrointestinal: denies: nausea, vomiting, abdominal pain, diarrhea, constipation, melena, hematochezia, other - Medication Medications: Active Medications Generic Name Dose Route Start Last Admin Trade Name Freq PRN Reason Stop Dose Admin Acetaminophen/Codeine Phosphate 1 tab 01/28/20 18:34 01/29/20 21:36 Tylenol #3 PO 1 tab Q6H PRN Administration Moderate Pain (4-6) Hydrocodone Bitart/Acetaminophen 1 tab 01/28/20 18:34 01/29/20 18:41 [place] 7.5/325 PO 1 tab Q6H PRN Administration Severe Pain (7-10) Cyanocobalamin 1,000 mcg 01/29/20 09:00 01/29/20 09:13 Vitamin B-12 PO 1,000 mcg DAILY QUE Administration Folic Acid 1 mg 01/29/20 09:00 01/29/20 20:21 Folvite PO 1 mg BID QUE Administration Hydroxyzine HCl 25 mg 01/29/20 09:00 01/29/20 20:22 Atarax PO 25 mg QID QUE Administration Sodium Chloride 1,000 mls @ 100 mls/hr 01/28/20 23:00 01/30/20 06:22 Normal Saline 0.9% IV Not Given .Q10H QUE Ketorolac Tromethamine 30 mg 01/28/20 22:49 01/29/20 21:37 Toradol IVP 30 mg Q6H PRN Administration Pain [place] Carbonate 900 mg 01/29/20 21:00 01/29/20 20:21 [place] Carbonate PO 900 mg HS QUE Administration Lorazepam 1 mg 01/29/20 11:44 01/29/20 13:49 Ativan PO 1 mg DAILYPRN PRN Administration Claustrophobia Polyethylene Glycol 17 gm 01/29/20 09:00 01/29/20 20:20 Miralax PO 17 gm BID QUE Administration Pregabalin 100 mg 01/29/20 09:00 01/29/20 21:59 Lyrica PO Not Given BID QUE Quetiapine Fumarate 800 mg 01/29/20 21:00 01/29/20 20:21 Seroquel PO 800 mg HS QUE Administration Senna/Docusate Sodium 2 tab 01/29/20 09:00 01/29/20 20:21 Senokot S PO 2 tab BID QUE Administration Tizanidine HCl 4 mg 01/28/20 18:34 01/29/20 13:04 Zanaflex PO 4 mg TID PRN Administration Muscle Spasm Tramadol HCl 50 mg 01/28/20 18:34 01/29/20 17:29 Ultram PO 50 mg Q6H PRN Administration Pain Mild (1-3) 2nd Line Trimethoprim/Sulfamethoxazole 1 tab 01/29/20 09:00 01/29/20 20:21 Bactrim Ds PO 1 tab BID QUE Administration Venlafaxine HCl 150 mg 01/29/20 21:00 01/29/20 20:21 Effexor Xr PO 150 mg HS QUE Administration - Exam General Appearance: NAD Heart: RRR, no rubs Respiratory: no wheezes, no ronchi Gastrointestinal: non-tender, non-distended, normal bowel sounds Extremities: no cyanosis Psychiatric: A&O x 3 Hosp A/P - Plan DVT proph w/SCDs 1. Cervical myelopathy with abnormal cervical CT. Management per Primary Service. 2. Anxiety disorder. 3. Bipolar disorder. 4. Generalized depressive disorder. 5. Hypertension, diet controlled. 6. Chronic anemia, suspected due to nutritional deficiency. 7. Chronic kidney disease, stage 2. 8. Recent urinary tract infection, on Bactrim. Urine culture showed Escherichia coli, sensitive to Bactrim. 9. Physical deconditioning. 10. Chronic pain. 11. Folic acid/Vit B12 def 12. Urinary retention with indwelling simpson catheter PLAN: Replace Vit B12 and Folic acid Pain control per primary service Cont Bactrim for UTI Cont other home meds - lithium, hydroxyzine, Seroquel, Lyrica, and Effexor Cont SCDs for DVT prophylaxis.
--- NOTE | 2020-01-30 10:28 | PRG ---
DATE OF SERVICE: 01/30/2020 Ms. Hanson' MRI yesterday demonstrated that the graft at the C6-C7 intervertebral space had migrated even more posteriorly with cord compression. As such, this morning, it quite clear that we needed to do an anterior and posterior approach, that would be removal of the C6-C7 graft, removal of the C3 to C6 plate, and then re-plating of the C3 to C7 segment to restore a significant kyphotic deformity and remove pressure of the ventral cord. At the same time, we would then position her prone as the original plan prior to the MRI yesterday would dictate a C6-C7 laminectomy, removal of the rods from C3 to C6, and placement of new screws from C7 to T1 to T2 with new screw/rebecca construct spanning from C3 to T2. I discussed this extensively including the informed consent of the anterior-posterior surgery including goals, indications, alternatives, risks, benefits, and complications up to and including, but not limited to wound healing issues such as infection, dehiscence, CSF leak, structural failure of the spine and hardware, temporary and permanent swallowing and speech abnormalities, injury to the vessels, nerve injury both temporary and permanent, and the lack of any recovery of her paraplegia. She understands if we do not do anything that the risk of primary paraplegia is essentially 100%. She wishes that we proceed with surgery. Job ID: [id number]
[2020-01-30] MEDS: Cyanocobalamin (Vitamin B-12) 1,000 MCG TAB PO SCH (11:11)
[2020-01-30] MEDS: Folic Acid 1 MG TAB PO SCH ×2 (11:12→20:35)
[2020-01-30] MEDS: hydrOXYzine 25 MG TAB PO SCH ×4 (11:12→20:31)
[2020-01-30] MEDS: Senokot S 8.6-50 MG TAB PO SCH ×2 (11:12→20:33)
[2020-01-30] MEDS: Sulfameth/Trimethoprim DS 800-160mg TAB PO SCH ×2 (11:12→20:34)
[2020-01-30] MEDS: Polyethylene Glycol 3350 17 GM Packet PO SCH ×2 (11:12→20:32)
[2020-01-30] MEDS: Pregabalin 50 MG CAP PO SCH ×2 (11:12→20:27)
[2020-01-30] MEDS ORDERED: PROPOFOL 200 MG/20 ML VIAL ONE (11:48)
[2020-01-30] MEDS ORDERED: Dexamethasone 20 MG/5 ML VIAL ONE (11:48)
[2020-01-30] MEDS ORDERED: Glycopyrrolate 0.2 MG/ML 5 ML SYRINGE ONE (11:48)
[2020-01-30] MEDS ORDERED: Ondansetron PF 4 MG/2 ML Vial ONE (11:48)
[2020-01-30] MEDS ORDERED: PHENYLEPHRINE-NS 100 MCG/ML 10 ML SYRINGE ONE ×2 (11:48→12:07)
[2020-01-30] MEDS ORDERED: Lidocaine 1% PF 5 ML VIAL ONE (11:48)
[2020-01-30] MEDS ORDERED: Vecuronium 10 MG VIAL ONE (11:48)
[2020-01-30] MEDS ORDERED: EPHEDRINE 25 MG/5 ML SYRINGE ONE (11:48)
[2020-01-30] MEDS ORDERED: Rocuronium Bromide 10 MG/ML (10ML VIAL) ONE (11:48)
[2020-01-30] MEDS ORDERED: Albumin 25% 100 ML ONE (12:01)
[2020-01-30] MEDS ORDERED: Fentanyl 100 MCG/2 ML VIAL ONE ×3 (14:29→15:08)
[2020-01-30] MEDS ORDERED: diphenhydrAMINE 50 MG/ML VIAL IM PRN (14:50)
[2020-01-30] MEDS ORDERED: diphenhydrAMINE 50 MG/ML VIAL IVP PRN (14:50)
[2020-01-30] MEDS ORDERED: Naloxone HCl 0.4 mg/ml Vial IV PRN (14:50)
[2020-01-30] MEDS ORDERED: diphenhydrAMINE 25 MG CAP PO PRN (14:50)
[2020-01-30] MEDS ORDERED: Zolpidem Tartrate 5 MG TAB PO PRN (14:50)
[2020-01-30 14:59] LABS: Hemoglobin 9.5 g/dL (12.0-16.0)
[2020-01-30] MEDS ORDERED: Communication Order-Pharmacy FS SCH (15:00)
[2020-01-30] MEDS: Venlafaxine HCl XR 150 MG CAP PO SCH (20:34)
[2020-01-30] MEDS: Lithium Carbonate 150 MG CAP PO SCH (20:44)
[2020-01-31] MEDS: tiZANidine HCl 4 MG TAB PO PRN ×3 (01:08→22:11)
[2020-01-31] MEDS: Ketorolac Tromethamine 30 MG/ML VIAL IVP PRN ×2 (01:12→11:30)
[2020-01-31 08:05] LABS: Anion Gap 11 mmol/L (10-20); BUN (Urea Nitrogen) 12 mg/dL (7.0-18.7); Calc. Creatinine Clearance 138 mL/min (70-130); Calcium 8.4 mg/dL (7.8-10.44); Carbon Dioxide 19 mmol/L (22-29); Chloride 110 mmol/L (98-107); Estimated GFR-MDRD Greater than 90; Glucose 100 mg/dL (70-105); Potassium 4.6 mmol/L (3.5-5.1); Sodium 135 mmol/L (136-145)
[2020-01-31] MEDS: Cyanocobalamin (Vitamin B-12) 1,000 MCG TAB PO SCH (09:25)
[2020-01-31] MEDS: Sulfameth/Trimethoprim DS 800-160mg TAB PO SCH ×2 (09:26→21:58)
[2020-01-31] MEDS: Polyethylene Glycol 3350 17 GM Packet PO SCH ×2 (09:26→21:54)
[2020-01-31] MEDS: Senokot S 8.6-50 MG TAB PO SCH ×2 (09:26→21:59)
[2020-01-31] MEDS: Folic Acid 1 MG TAB PO SCH ×2 (09:26→21:51)
[2020-01-31] MEDS: Pregabalin 50 MG CAP PO SCH ×2 (09:26→21:55)
[2020-01-31] MEDS: hydrOXYzine 25 MG TAB PO SCH ×4 (09:26→21:49)
[2020-01-31] MEDS: fentaNYL Citrate/PF 2,000 MCG in Sodium Chloride 0.9% 60 ML IV PRN (09:49)
--- NOTE | 2020-01-31 10:00 | ULT ---
BILATERAL LOWER EXTREMITY VENOUS ULTRASOUND: HISTORY: Immobility with bilateral lower extremity edema. TECHNIQUE: Multiplanar lala-scale and color Doppler images were obtained in a bilateral lower extremity venous u ltrasound. Spectral analysis of the Doppler waveforms was performed. FINDINGS: The bilateral common femoral veins, profunda femoral veins, superficial femoral veins and popliteal v eins are normal and appear without visible thrombus. The demonstrate normal compression, flow and augmentation. The posterior tibial veins and greater saphenous veins are also patent. IMPRESSION: No evidence of deep venous thrombosis. POS: VISHAL
[2020-01-31] MEDS ORDERED: Enoxaparin Sodium 40 MG/0.4 ML SYRINGE SC SCH (10:15)
[2020-01-31] MEDS ORDERED: CEFAZOLIN 2 GM in Premix Bag 1 BAG IVPB SCH ×2 (10:30→11:30)
--- NOTE | 2020-01-31 11:00 | PRG ---
DATE OF SERVICE: 01/31/2020 Ms. Hanson is postoperative day 1 from anterior-posterior decompression, reconstruction of deformity and fusion. She is starting to move her legs this morning. Partial range of motion, approximately 3/5 strength throughout all myotomes, which frankly is incredible considering 24 hours ago she was completely paraplegic. 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 Her drain output has been approximately 50 mL anteriorly and posteriorly respectively. We will continue both of these. The ultrasound of lower extremities this morning is negative for DVT. We will initiate low-dose Lovenox. I anticipate another day or so in the hospital and then she can be taken back to inpatient rehab. Job ID: [id number]
[2020-01-31 11:25] LABS: #Basophils 0.1 thou/uL (0.0-0.2); #Eosinphils 0.2 thou/uL (0.0-0.7); #Lymphocytes 1.4 thou/uL (1.20-3.40); #Monocytes 0.5 thou/uL (0.11-0.59); #Neutrophils 4.8 thou/uL (1.40-6.50); %Basophils 1.1 % (0.0-1.0); %Eosinophils 2.7 % (0.0-10.0); %Lymphocytes 20.6 % (21.0-51.0); %Monocytes 7.7 % (0.0-10.0); Hemoglobin 9.6 g/dL (12.0-16.0); Large Platelets SLIGHT; MDiff Complete? YES; Mean Corpuscular HGB CONC 30.6 g/dL (32.0-36.0); Mean Corpuscular Hemoglobin 29.9 pg (27.0-31.0); Mean Corpuscular Volume 97.6 fL (78.0-98.0); Mean Platelet Volume 12.5 fL (7.4-10.4); Platelet Count 35 thou/uL (130-400); Platelet Morphology Comment Appears Decreased; RBC Distribution Width 15.2 % (11.5-14.5); Red Blood Cell (RBC) Count 3.22 mill/uL (4.20-5.40)
--- NOTE | 2020-01-31 12:23 | PDOC.HOSPP ---
- Subjective Encounter Date: 01/31/20 Encounter Time: 11:30 Subjective: Patient seen and examined for med mngt. No new focal deficits. 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 No new complaints. No overnight events - Objective Vital Signs & Weight: Vital Signs (12 hours) Temp Pulse Resp BP BP Pulse Ox 01/31/20 11:27 98.7 F 82 16 107/68 96 01/31/20 07:36 98.3 F 87 16 94/56 L 95 01/31/20 04:00 98.5 F 90 18 100/62 100 Weight Weight 166 lb 11.2 oz I&O: 01/30/20 01/31/20 02/01/20 06:59 06:59 06:59 Intake Total 1400 2430 Output Total 1150 2620 Balance 250 -190 Result Diagrams: 01/31/20 07:37 01/31/20 07:37 Hospitalist ROS - Review of Systems Cardiovascular: denies: chest pain, palpitations, orthopnea, paroxysmal noc. dyspnea, edema, light headedness, other Gastrointestinal: denies: nausea, vomiting, abdominal pain, diarrhea, constipation, melena, hematochezia, other - Medication Medications: Active Medications Generic Name Dose Route Start Last Admin Trade Name Freq PRN Reason Stop Dose Admin Cyanocobalamin 1,000 mcg 01/29/20 09:00 01/31/20 09:25 Vitamin B-12 PO 1,000 mcg DAILY QUE Administration Folic Acid 1 mg 01/29/20 09:00 01/31/20 09:26 Folvite PO 1 mg BID QUE Administration Hydroxyzine HCl 25 mg 01/29/20 09:00 01/31/20 09:26 Atarax PO 25 mg QID QUE Administration Sodium Chloride 1,000 mls @ 100 mls/hr 01/28/20 23:00 01/30/20 23:14 Normal Saline 0.9% IV 1,000 mls .Q10H QUE Administration Fentanyl Citrate 2,000 mcg/ 100 mls @ 0 mls/hr 01/30/20 14:50 01/31/20 09:49 Sodium Chloride IV 100 mls INF PRN Administration Pain As Directed Cefazolin Sodium/Dextrose 2 gm 50 mls @ 100 mls/hr 01/31/20 11:30 01/31/20 11 :31 / Device IVPB 01/31/20 13:30 50 mls NOW QUE Administration Ketorolac Tromethamine 30 mg 01/28/20 22:49 01/31/20 11:30 Toradol IVP 30 mg Q6H PRN Administration Pain [place] Carbonate 900 mg 01/29/20 21:00 01/30/20 20:44 [place] Carbonate PO 900 mg HS QUE Administration Magnesium Hydroxide 30 ml 01/28/20 21:38 01/31/20 11:35 Milk Of Magnesium PO 30 ml DAILYPRN PRN Administration Constipation Polyethylene Glycol 17 gm 01/29/20 09:00 01/31/20 09:26 Miralax PO 17 gm BID QUE Administration Pregabalin 100 mg 01/29/20 09:00 01/31/20 09:26 Lyrica PO 100 mg BID QUE Administration Quetiapine Fumarate 800 mg 01/29/20 21:00 01/30/20 20:46 Seroquel PO 800 mg HS [facility] Administration Senna/Docusate Sodium 2 tab 01/29/20 09:00 01/31/20 09:26 Senokot S PO 2 tab BID QUE Administration Tizanidine HCl 4 mg 01/28/20 18:34 01/31/20 10:29 Zanaflex PO 4 mg TID PRN Administration Muscle Spasm Trimethoprim/Sulfamethoxazole 1 tab 01/29/20 09:00 01/31/20 09:26 Bactrim Ds PO 1 tab BID QUE Administration Venlafaxine HCl 150 mg 01/29/20 21:00 01/30/20 20:34 Effexor Xr PO 150 mg HS QUE Administration - Exam General Appearance: NAD Heart: RRR, no gallops Respiratory: no wheezes, no rales Gastrointestinal: non-tender, non-distended, no palpable masses Skin: normal turgor, no lesions, no rashes Neurological: no new deficit Psychiatric: normal affect, A&O x 3 Hosp A/P - Plan DVT proph w/SCDs 1. Cervical myelopathy with abnormal cervical CT. Management per Primary Service. 2. New thrombocytopenia of unclear etiology. 3. Anxiety/Bipolar disorder. 4. Generalized depressive disorder. 5. Hypertension, diet controlled. 6. Chronic anemia, suspected due to nutritional deficiency. 7. Chronic kidney disease, stage 2. 8. Recent urinary tract infection, on Bactrim. Urine culture showed Escherichia coli, sensitive to Bactrim. 9. Physical deconditioning. 10. Chronic pain. 11. Folic acid/Vit B12 def 12. Urinary retention with indwelling simpson catheter PLAN: Repeat CBC Check coag profile Will hold Lovenox and Bactrim if repeat platelets are low Cont Vit B12 and Folic acid replacement Pain control AM labs Cont other home meds - lithium, hydroxyzine, Seroquel, Lyrica, and Effexor
[2020-01-31] MEDS: Sodium Chloride 0.9% 1,000 ML IV SCH ×2 (12:45→17:00)
[2020-01-31 13:18] LABS: INR-International Normal Ratio 1.1; PTT 36.9 sec (22.9-36.1); Prothrombin Time 13.8 sec (12.0-14.7)
[2020-01-31 13:48] LABS: Band 1 % (5-11); Eosinophils 3 % (0-10); Hemoglobin 8.5 g/dL (12.0-16.0); Hypochromia SLIGHT = 6-15 cells (100X) (0-5/hpf); Lymphocytes 20 % (21-51); MDiff Complete? YES; Mean Corpuscular HGB CONC 33.3 g/dL (32.0-36.0); Mean Corpuscular Hemoglobin 30.8 pg (27.0-31.0); Mean Corpuscular Volume 92.5 fL (78.0-98.0); Mean Platelet Volume 9.8 fL (7.4-10.4); Monocytes 3 % (0-10); Neutrophil 71 % (42-75); Platelet Count 145 thou/uL (130-400); Platelet Morphology Comment Appears Adequate; Polychromasia SLIGHT = 2-3 cells (100X) (0-2/hpf); RBC Distribution Width 14.7 % (11.5-14.5); Reactive Lymphocytes 2 % (0-10); Red Blood Cell (RBC) Count 2.75 mill/uL (4.20-5.40); White Blood Cell (WBC) Count 5.9 thou/uL (4.8-10.8)
--- NOTE | 2020-01-31 16:04 | OP ---
DATE OF PROCEDURE: 01/30/2020 LOCATION: OR 12. 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 PROCEDURES PERFORMED: 1. Exposure from C3-C7 and removal of plate and screw construct from prior surgery, C3, C4, C5, C6, all screws and plate. 2. Removal of interbody spacer that had migrated posteriorly into the spinal canal with placement of new interbody spacer packed with graft for arthrodesis at C6-C7, worship of alignment and reduction of kyphotic deformity. 3. Anterior cervical plate and screw fixation, C3, C4, C5, C6, and C7. 4. Opening of posterior spinal wound with exposure from C3-T1. 5. Removal of screw rebecca fixation posteriorly, C3, C4, C5, C6. 6. Placement of screws, C7-T1 bilaterally. 7. C6-C7 laminectomy, partial facetectomy, foraminotomy. 8. New screw rebecca fixation, C3, C4, C5, C6, C7, T1 bilaterally. 9. Posterolateral arthrodesis C6, C7, T1 for extension of fusion. DESCRIPTION OF PROCEDURE: After informed consent was obtained from the patient, the patient was brought to the OR. Proper patient, pause, and identification were carried out. She was placed under excellent general endotracheal anesthesia and positioned supine on the OR table. All appropriate points were padded. We identified the anterior oblique cayla to allow for approach to C3-C7. This region was sterilely cleansed, prepared, and draped. Proper patient, pause, and identification were carried out. The wound was then opened with a combination of sharp, monopolar, and blunt dissection and the anterior C3, C4, C5, C6, and C7 segments were all exposed along with the plate and screws. The plate and screws were removed. Interbody spacers from the prior surgery at C3, C4, C5, C6 were kept in place. The C6-C7 spacer had migrated posteriorly into the canal and rotated. This was then following distraction removed and we assured freedom of the ventral dural tube and cord. We then turned our attention to placement of a larger spacer to restore kyphotic deformity and following this anterior cervical plate and screw fixation from C3-C7 then occurred with final tightening. I was satisfied with our plate screw construct and our worship of lordosis and reduction of the kyphotic deformity. We then closed this wound in anatomic layers following meticulous hemostasis over a drain. We then turned the patient following pins prone onto the Naeem table. The cervical spine was kept in neutral position. We then identified the C3, C4, C5, C6, C7 and T1 segments and a linear cayla was continued from the prior surgery from C3 down to T1. This region was sterilely cleansed, prepared and draped. Proper patient, pause, and identification were carried out. The wound was then opened with a combination of sharp, monopolar, and blunt dissection and the lateral mass and screw rebecca construct from C3-C6 was identified bilaterally. The cap screws were removed with counter-torque application, and all screws were solid. We then performed a C6-C7 laminectomy for decompression of spinal cord and placement of lateral mass screws at C7 and pedicle screws at T1 using gross and fluoroscopic visualization. Rods were then placed. Final tightening then occurred. We were satisfied again with a 360 degree construct and worship of normal cervical thoracic alignment. Copious irrigation occurred throughout as did maximizing hemostasis. The wound was then closed in anatomic layers following sprinkling of vancomycin powder and placement of a drain. Job ID: [id number]
[2020-01-31] MEDS: CEFAZOLIN 2 GM in Premix Bag 1 BAG IVPB SCH (18:39)
[2020-01-31] MEDS: Lithium Carbonate 150 MG CAP PO SCH (21:53)
[2020-01-31] MEDS: Venlafaxine HCl XR 150 MG CAP PO SCH (21:57)
[2020-01-31] MEDS: Ondansetron PF 4 MG/2 ML Vial IVP PRN (22:09)
[2020-02-01] MEDS: CEFAZOLIN 2 GM in Premix Bag 1 BAG IVPB SCH ×3 (03:37→18:48)
[2020-02-01] MEDS: Ondansetron PF 4 MG/2 ML Vial IVP PRN ×3 (04:41→22:04)
[2020-02-01 05:33] LABS: Anion Gap 10 mmol/L (10-20); BUN (Urea Nitrogen) 10 mg/dL (7.0-18.7); BUN/Creatinine Ratio 14.29; Calc. Creatinine Clearance 120 mL/min (70-130); Calcium 8.7 mg/dL (7.8-10.44); Carbon Dioxide 23 mmol/L (22-29); Chloride 108 mmol/L (98-107); Estimated GFR-MDRD 90; Glucose 111 mg/dL (70-105); Magnesium 1.9 mg/dL (1.6-2.6); Phosphorus 3.5 mg/dL (2.3-4.7); Potassium 4.4 mmol/L (3.5-5.1); Sodium 137 mmol/L (136-145)
[2020-02-01] MEDS: Sodium Chloride 0.9% 1,000 ML IV SCH ×2 (06:08→17:28)
[2020-02-01] MEDS: tiZANidine HCl 4 MG TAB PO PRN (06:15)
[2020-02-01] MEDS: Senokot S 8.6-50 MG TAB PO SCH ×2 (08:20→21:23)
[2020-02-01] MEDS: Saccharomyces boulardii 250 MG CAP PO SCH (08:21)
[2020-02-01] MEDS: Folic Acid 1 MG TAB PO SCH ×2 (08:21→21:23)
[2020-02-01] MEDS: Polyethylene Glycol 3350 17 GM Packet PO SCH ×2 (08:21→21:23)
[2020-02-01] MEDS: Sulfameth/Trimethoprim DS 800-160mg TAB PO SCH ×2 (08:22→21:23)
[2020-02-01] MEDS: Pregabalin 50 MG CAP PO SCH ×2 (08:22→21:21)
[2020-02-01] MEDS: Cyanocobalamin (Vitamin B-12) 1,000 MCG TAB PO SCH (08:22)
[2020-02-01] MEDS: hydrOXYzine 25 MG TAB PO SCH ×5 (08:29→21:23)
[2020-02-01] MEDS: Enoxaparin Sodium 40 MG/0.4 ML SYRINGE SC SCH (08:29)
[2020-02-01] MEDS: Ketorolac Tromethamine 30 MG/ML VIAL IVP PRN (08:44)
[2020-02-01] MEDS ORDERED: HYDROcodone/Acetaminophen 10/325 mg Tablet PO PRN (09:18)
[2020-02-01] MEDS ORDERED: traMADol HCl 50 MG TAB PO PRN ×2 (09:19→09:20)
[2020-02-01 10:07] LABS: Band 1 % (5-11); Eosinophils 2 % (0-10); Hemoglobin 9.4 g/dL (12.0-16.0); Lymphocytes 4 % (21-51); MDiff Complete? YES; Mean Corpuscular HGB CONC 32.7 g/dL (32.0-36.0); Mean Corpuscular Volume 91.9 fL (78.0-98.0); Mean Platelet Volume 10.1 fL (7.4-10.4); Monocytes 6 % (0-10); Neutrophil 87 % (42-75); Platelet Count 148 thou/uL (130-400); RBC Distribution Width 14.5 % (11.5-14.5); Red Blood Cell (RBC) Count 3.12 mill/uL (4.20-5.40); White Blood Cell (WBC) Count 6.3 thou/uL (4.8-10.8)
[2020-02-01] MEDS: HYDROcodone/Acetaminophen 10/325 mg Tablet PO PRN ×3 (11:52→21:30)
--- NOTE | 2020-02-01 13:34 | PDOC.HOSPP ---
- Subjective Encounter Date: 02/01/20 Encounter Time: 12:30 Subjective: Patient seen and examined for med mngt. Pain controlled. Had BM yesterday. No new focal deficits. No new complaints. No overnight events - Objective Vital Signs & Weight: Vital Signs (12 hours) Temp Pulse Pulse Resp BP BP BP 02/01/20 13:12 98.4 F 92 18 111/68 02/01/20 12:57 97.3 F L 93 16 115/69 02/01/20 11:20 98.2 F 90 16 107/68 02/01/20 08:00 02/01/20 07:15 98.1 F 104 H 14 127/79 02/01/20 03:08 98.3 F 99 16 125/82 Pulse Ox 02/01/20 13:12 98 02/01/20 12:57 96 02/01/20 11:20 95 02/01/20 08:00 95 02/01/20 07:15 95 02/01/20 03:08 94 L Weight Weight 166 lb 11.2 oz I&O: 01/31/20 02/01/20 02/02/20 06:59 06:59 06:59 Intake Total 2430 2805 0 Output Total 2620 3995 Balance -190 -1190 0 Result Diagrams: 02/01/20 05:00 02/01/20 05:00 Hospitalist ROS - Review of Systems Respiratory: denies: cough, dry, shortness of breath, hemoptysis, SOB with excertion, pleuritic pain, sputum, wheezing, other Cardiovascular: denies: chest pain, palpitations, orthopnea, paroxysmal noc. dyspnea, edema, light headedness, other - Medication Medications: Active Medications Generic Name Dose Route Start Last Admin Trade Name Freq PRN Reason Stop Dose Admin Acetaminophen 650 mg 01/28/20 18:34 01/31/20 22:11 Tylenol PO 650 mg Q4H PRN Administration FEVER/Pain Mild (1-3) 1st Line Hydrocodone Bitart/Acetaminophen 2 tab 02/01/20 09:19 02/01/20 11:52 [place] 10/325 PO 2 tab Q4H PRN Administration Pain (5-10) Bisacodyl 10 mg 01/28/20 18:34 01/31/20 17:00 Dulcolax [place] 10 mg Q12H PRN Administration Constipation Cyanocobalamin 1,000 mcg 01/29/20 09:00 02/01/20 08:22 Vitamin B-12 PO 1,000 mcg DAILY QUE Administration Enoxaparin Sodium 40 mg 02/01/20 09:00 02/01/20 08:29 Lovenox SC 40 mg 0900 QUE Administration Folic Acid 1 mg 01/29/20 09:00 02/01/20 08:21 Folvite PO 1 mg BID QUE Administration Hydroxyzine HCl 25 mg 01/29/20 09:00 02/01/20 13:22 Atarax PO 25 mg QID QUE Administration Sodium Chloride 1,000 mls @ 100 mls/hr 01/28/20 23:00 02/01/20 06:08 Normal Saline 0.9% IV Not Given .Q10H QUE Fentanyl Citrate 2,000 mcg/ 100 mls @ 0 mls/hr 01/30/20 14:50 01/31/20 09:49 Sodium Chloride IV 100 mls INF PRN Administration Pain As Directed Cefazolin Sodium/Dextrose 2 gm 50 mls @ 100 mls/hr 01/31/20 19:00 02/01/20 11 :54 / Device IVPB 50 mls 0300,1100,1900 [facility] Administration [place] Carbonate 900 mg 01/29/20 21:00 01/31/20 21:53 [place] Carbonate PO Not Given HS [facility] Magnesium Hydroxide 30 ml 01/28/20 21:38 01/31/20 11:35 Milk Of Magnesium PO 30 ml DAILYPRN PRN Administration Constipation Ondansetron HCl 4 mg 01/30/20 14:50 02/01/20 04:41 Zofran IVP 4 mg Q6H PRN Administration Nausea/Vomiting Polyethylene Glycol 17 gm 01/29/20 09:00 02/01/20 08:21 Miralax PO Not Given BID QUE Pregabalin 100 mg 01/29/20 09:00 02/01/20 08:22 Lyrica PO 100 mg BID QUE Administration Quetiapine Fumarate 800 mg 01/29/20 21:00 01/31/20 21:55 Seroquel PO Not Given HS [facility] Saccharomyces Boulardii 250 mg 02/01/20 09:00 02/01/20 08:21 Florastor PO 250 mg DAILY [facility] Administration Senna/Docusate Sodium 2 tab 01/29/20 09:00 02/01/20 08:20 Senokot S PO Not Given BID QUE Tizanidine HCl 4 mg 01/28/20 18:34 02/01/20 06:15 Zanaflex PO 4 mg TID PRN Administration Muscle Spasm Trimethoprim/Sulfamethoxazole 1 tab 01/29/20 09:00 02/01/20 08:22 Bactrim Ds PO 1 tab BID QUE Administration Venlafaxine HCl 150 mg 01/29/20 21:00 01/31/20 21:57 Effexor Xr PO Not Given HS QUE - Exam General Appearance: NAD Heart: RRR, no gallops Respiratory: no wheezes, no rales Gastrointestinal: non-tender, non-distended Extremities: no cyanosis Neurological: no new deficit Hosp A/P - Plan DVT proph w/SCDs 1. Cervical myelopathy with abnormal cervical CT. Management per Primary Service. 2. Folic acid/Vit B12 def 3. Anxiety/Bipolar disorder. 4. Generalized depressive disorder. 5. Hypertension, diet controlled. 6. Chronic anemia, suspected due to nutritional deficiency. 7. Chronic kidney disease, stage 2. 8. Recent urinary tract infection, on Bactrim. Urine culture showed Escherichia coli, sensitive to Bactrim. 9. Physical deconditioning. 10. Chronic pain. 11. Urinary retention with indwelling simpson catheter PLAN: Cont Vit B12 and Folic acid replacement Pain control Cont lithium, hydroxyzine, Seroquel, Lyrica, Effexor and other meds as above Thrombocytopenia was due to lab error
[2020-02-01] MEDS: fentaNYL Citrate/PF 2,000 MCG in Sodium Chloride 0.9% 60 ML IV PRN (18:24)
[2020-02-01] MEDS: Lithium Carbonate 150 MG CAP PO SCH (21:20)
[2020-02-01] MEDS: Venlafaxine HCl XR 150 MG CAP PO SCH (21:23)
[2020-02-02] MEDS: CEFAZOLIN 2 GM in Premix Bag 1 BAG IVPB SCH ×3 (03:18→18:28)
[2020-02-02] MEDS: Sodium Chloride 0.9% 1,000 ML IV SCH ×2 (05:39→14:12)
[2020-02-02] MEDS: HYDROcodone/Acetaminophen 10/325 mg Tablet PO PRN ×4 (06:21→22:39)
[2020-02-02] MEDS: Ondansetron PF 4 MG/2 ML Vial IVP PRN (06:21)
[2020-02-02] MEDS: Pregabalin 50 MG CAP PO SCH ×2 (08:35→20:23)
[2020-02-02] MEDS: Senokot S 8.6-50 MG TAB PO SCH ×2 (08:35→20:22)
[2020-02-02] MEDS: Folic Acid 1 MG TAB PO SCH ×2 (08:36→20:16)
[2020-02-02] MEDS: Sulfameth/Trimethoprim DS 800-160mg TAB PO SCH ×2 (08:36→20:22)
[2020-02-02] MEDS: Cyanocobalamin (Vitamin B-12) 1,000 MCG TAB PO SCH (08:36)
[2020-02-02] MEDS: Saccharomyces boulardii 250 MG CAP PO SCH (08:36)
[2020-02-02] MEDS: Polyethylene Glycol 3350 17 GM Packet PO SCH ×2 (08:36→20:18)
[2020-02-02] MEDS: hydrOXYzine 25 MG TAB PO SCH ×4 (08:36→20:16)
[2020-02-02] MEDS: Enoxaparin Sodium 40 MG/0.4 ML SYRINGE SC SCH (08:36)
[2020-02-02] MEDS ORDERED: Milk Of Magnesia 30 ML UDCUP PO SCH (09:45)
[2020-02-02] MEDS: tiZANidine HCl 4 MG TAB PO PRN (17:52)
[2020-02-02] MEDS ORDERED: Bisacodyl 5 MG TAB PO SCH (19:30)
[2020-02-02] MEDS ORDERED: Bisacodyl 10 MG SUPP PR SCH (19:30)
[2020-02-02] MEDS: Lithium Carbonate 150 MG CAP PO SCH (20:17)
[2020-02-02] MEDS: Lubiprostone 24 MCG CAP PO SCH (20:18)
[2020-02-02] MEDS: Venlafaxine HCl XR 150 MG CAP PO SCH (20:20)
[2020-02-02] MEDS: Citrucel 500 MG TAB PO SCH (22:27)
[2020-02-03] MEDS: Sodium Chloride 0.9% 1,000 ML IV SCH ×3 (01:17→19:28)
[2020-02-03] MEDS: CEFAZOLIN 2 GM in Premix Bag 1 BAG IVPB SCH ×3 (03:38→18:15)
[2020-02-03] MEDS: tiZANidine HCl 4 MG TAB PO PRN (03:55)
[2020-02-03] MEDS ORDERED: Milk Of Magnesia 30 ML UDCUP PO SCH (09:00)
--- NOTE | 2020-02-03 09:17 | PRG ---
DATE OF SERVICE: 02/02/2020 Ms. Hanson is now 3 days postop after undergoing removal of her C6-C7 PEEK implant with replacement of new 12 mm spacer and anterior replating from C3 to C7 as well as C6-C7 laminectomy and extension of posterolateral fusion from C6-T1 on Saturday, January 30, 2020. The patient continues to report postoperative pain and is using a CUSTOMS ENTRY CLERK. However, she has significant improvement in both her upper extremities and lower extremities strength compared to before surgery. She has 4/5 strength throughout her triceps and wrist flexion bilaterally. Her hand acquisition analyst strength is improving. I am very pleased with the improvement in her lower extremity strength, that she is now able to bend both knees much higher than before surgery when she was paralyzed. She has 4 minus out of 5 strength throughout her lower extremity myotomes bilaterally. She states that she was nearly able to stand today with therapy. Her Díaz catheter remains in place and hopefully it can be removed if she begins to mobilize further. Her primary complaint today is constipation stating that it has been one 1 to 2 weeks since her last bowel movement. She has been on a stool softener and milk of magnesium, however, I have ordered Amitiza b.i.d. She remains pending approval for inpatient rehab. We will continue to monitor her neurologic status and continue intensive therapy. Please call for any neurologic changes or other concerns. Job ID: [id number]
--- NOTE | 2020-02-03 10:14 | PRG ---
DATE OF SERVICE: 02/03/2020 Ms. Hanson is 6 days into her hospitalization and postoperative day #4 from anterior-posterior reconstruction of her spine and decompression of spinal cord. She has antigravity in both upper extremities, still with moderate hand intrinsic weakness, but only [id number] lower extremity weakness. This is a substantial improvement. She moves at all joints in the lower extremities. I am very pleased with how she is doing. We are keeping her drains and essentially until we find out when she is going to be going to inpatient rehab, which hopefully is soon. Job ID: [id number]
[2020-02-03] MEDS ORDERED: HYDROcodone/Acetaminophen 10/325 mg Tablet PO PRN ×2 (10:21→10:22)
[2020-02-03] MEDS ORDERED: Fentanyl 100 MCG/2 ML VIAL SLOW IVP PRN (10:21)
[2020-02-03] MEDS ORDERED: traMADol HCl 50 MG TAB PO PRN ×2 (10:22→10:23)
[2020-02-03] MEDS: Pregabalin 50 MG CAP PO SCH ×2 (10:33→19:54)
[2020-02-03] MEDS: Sulfameth/Trimethoprim DS 800-160mg TAB PO SCH ×2 (10:33→19:59)
[2020-02-03] MEDS: Citrucel 500 MG TAB PO SCH ×3 (10:33→19:58)
[2020-02-03] MEDS: Lubiprostone 24 MCG CAP PO SCH ×3 (10:34→19:58)
[2020-02-03] MEDS: Cyanocobalamin (Vitamin B-12) 1,000 MCG TAB PO SCH ×2 (10:34→10:47)
[2020-02-03] MEDS: hydrOXYzine 25 MG TAB PO SCH ×5 (10:35→19:58)
[2020-02-03] MEDS: Enoxaparin Sodium 40 MG/0.4 ML SYRINGE SC SCH (10:35)
[2020-02-03] MEDS: Folic Acid 1 MG TAB PO SCH ×3 (10:35→19:58)
[2020-02-03] MEDS: Polyethylene Glycol 3350 17 GM Packet PO SCH ×2 (10:37→19:58)
[2020-02-03] MEDS: Senokot S 8.6-50 MG TAB PO SCH ×2 (10:37→19:59)
[2020-02-03] MEDS: Saccharomyces boulardii 250 MG CAP PO SCH (10:37)
[2020-02-03] MEDS: HYDROcodone/Acetaminophen 10/325 mg Tablet PO PRN (10:38)
--- NOTE | 2020-02-03 13:34 | PDOC.HOSPP ---
- Subjective Encounter Date: 02/03/20 Encounter Time: 12:00 Subjective: Patient seen and examined for med mngt. Had BM last night. No new complaints. No overnight events - Objective Vital Signs & Weight: Vital Signs (12 hours) Temp Pulse Resp BP BP Pulse Ox 02/03/20 11:49 98.1 F 90 14 143/92 H 99 02/03/20 08:03 97.9 F 84 14 135/86 97 02/03/20 04:00 98.1 F 81 18 139/91 H 96 Weight Weight 166 lb 11.2 oz I&O: 02/02/20 02/03/20 02/04/20 06:59 06:59 06:59 Intake Total 2080 Output Total 3957 8861 Balance -844 -6187 Result Diagrams: 02/01/20 05:00 02/01/20 05:00 Hospitalist ROS - Review of Systems Respiratory: denies: cough, dry, shortness of breath, hemoptysis, SOB with excertion, pleuritic pain, sputum, wheezing, other Cardiovascular: denies: chest pain, palpitations, orthopnea, paroxysmal noc. dyspnea, edema, light headedness, other Gastrointestinal: denies: nausea, vomiting, abdominal pain, diarrhea, constipation, melena, hematochezia, other - Medication Medications: Active Medications Generic Name Dose Route Start Last Admin Trade Name Freq PRN Reason Stop Dose Admin Acetaminophen 650 mg 01/28/20 18:34 01/31/20 22:11 Tylenol PO 650 mg Q4H PRN Administration FEVER/Pain Mild (1-3) 1st Line Bisacodyl 10 mg 01/28/20 18:34 01/31/20 17:00 Dulcolax [place] 10 mg Q12H PRN Administration Constipation Cyanocobalamin 1,000 mcg 01/29/20 09:00 02/03/20 10:47 Vitamin B-12 PO Not Given DAILY [facility] Enoxaparin Sodium 40 mg 02/01/20 09:00 02/03/20 10:35 Lovenox SC 40 mg 0900 QUE Administration Folic Acid 1 mg 01/29/20 09:00 02/03/20 10:47 Folvite PO Not Given BID [facility] Hydroxyzine HCl 25 mg 01/29/20 09:00 02/03/20 10:47 Atarax PO Not Given QID [facility] Sodium Chloride 1,000 mls @ 100 mls/hr 01/28/20 23:00 02/03/20 01:17 Normal Saline 0.9% IV Not Given .Q10H [facility] Cefazolin Sodium/Dextrose 2 gm 50 mls @ 100 mls/hr 01/31/20 19:00 02/03/20 11 :28 / Device IVPB 50 mls 0300,1100,1900 QUE Administration [place] Carbonate 900 mg 01/29/20 21:00 02/02/20 20:17 [place] Carbonate PO Not Given HS [facility] Lubiprostone 24 mcg 02/02/20 21:00 02/03/20 10:48 Amitiza PO Not Given BID [facility] Magnesium Hydroxide 30 ml 02/03/20 09:00 02/03/20 10:36 Milk Of Magnesium PO Not Given DAILY [facility] Methylcellulose 500 mg 02/02/20 21:00 02/03/20 10:47 Citrucel PO Not Given BID [facility] Ondansetron HCl 4 mg 01/30/20 14:50 02/02/20 06:21 Zofran IVP 4 mg Q6H PRN Administration Nausea/Vomiting Polyethylene Glycol 17 gm 01/29/20 09:00 02/03/20 10:37 Miralax PO Not Given BID [facility] Pregabalin 100 mg 01/29/20 09:00 02/03/20 10:33 Lyrica PO 100 mg BID [facility] Administration Quetiapine Fumarate 800 mg 01/29/20 21:00 02/02/20 20:19 Seroquel PO Not Given HS [facility] Saccharomyces Boulardii 250 mg 02/01/20 09:00 02/03/20 10:37 Florastor PO 250 mg DAILY [facility] Administration Senna/Docusate Sodium 2 tab 01/29/20 09:00 02/03/20 10:37 Senokot S PO 2 tab BID [facility] Administration Tizanidine HCl 4 mg 01/28/20 18:34 02/03/20 03:55 Zanaflex PO 4 mg TID PRN Administration Muscle Spasm Trimethoprim/Sulfamethoxazole 1 tab 01/29/20 09:00 02/03/20 10:33 Bactrim Ds PO 1 tab BID [facility] Administration Venlafaxine HCl 150 mg 01/29/20 21:00 02/02/20 20:20 Effexor Xr PO Not Given HS QUE - Exam General Appearance: NAD Neck: supple, no JVD Heart: no gallops Respiratory: no wheezes, no rales, no ronchi Gastrointestinal: non-tender, non-distended, normal bowel sounds Hosp A/P - Plan DVT proph w/SCDs 1. Cervical myelopathy with abnormal cervical CT. Management per Primary Service. 2. Folic acid/Vit B12 def 3. Anxiety/Bipolar disorder. 4. Generalized depressive disorder. 5. Hypertension, diet controlled. 6. Chronic anemia, suspected due to nutritional deficiency. 7. Chronic kidney disease, stage 2. 8. Recent urinary tract infection, on Bactrim. Urine culture showed Escherichia coli, sensitive to Bactrim. 9. Physical deconditioning. 10. Chronic pain. 11. 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
[2020-02-03 15:58] VITALS: BP 138/90; TEMP 97.7
[2020-02-03] MEDS: Lithium Carbonate 150 MG CAP PO SCH (19:58)
[2020-02-03] MEDS: Venlafaxine HCl XR 150 MG CAP PO SCH (19:59)
== END 2020-02-03 20:32 | DRG 472 ==
LOC: SURG B 20:14 → OBSVTOIN 20:14
PROVIDERS: ADMIT Surgery; ATTEND Surgery
PROC: 0RG20A0 Fusion of 2 or more Cervical Vertebral Joints with Interbody Fusion Device, Anterior Approach, Anterior Column, Open Approach (ICD-10-PCS; principal; 2020-01-30)
PROC: 0RH104Z Insertion of Internal Fixation Device into Cervical Vertebral Joint, Open Approach (ICD-10-PCS; 2020-01-30)
PROC: 0RH Upper Joints, Insertion (ICD-10-PCS; 2020-01-30)
PROC: 0RP104Z Removal of Internal Fixation Device from Cervical Vertebral Joint, Open Approach (ICD-10-PCS; 2020-01-30)
PROC: 00NW0ZZ Release Cervical Spinal Cord, Open Approach (ICD-10-PCS; 2020-01-30)
DX: M48.02 Spinal stenosis, cervical region (principal); N39.0 Urinary tract infection, site not specified; G99.2 Myelopathy in diseases classified elsewhere; G82.20 Paraplegia, unspecified; Z11.59 Encounter for screening for other viral diseases; R33.9 Retention of urine, unspecified; F41.9 Anxiety disorder, unspecified; F32.9 Major depressive disorder, single episode, unspecified; N18.2 Chronic kidney disease, stage 2 (mild); I12.9 Hypertensive chronic kidney disease with stage 1 through stage 4 chronic kidney disease, or unspecified chronic kidney disease; G89.29 Other chronic pain; B96.20 Unspecified Escherichia coli [E. coli] as the cause of diseases classified elsewhere; M40.292 Other kyphosis, cervical region; D52.9 Folate deficiency anemia, unspecified; D51.9 Vitamin B12 deficiency anemia, unspecified; D69.6 Thrombocytopenia, unspecified; Z79.899 Other long term (current) drug therapy
CPT/HCPCS: 36415; 36430; 72146; 72156; 80048; 80053; 80069; 82607; 82746; 83735; 85007; 85014; 85018; 85025; 85027; 85610; 85652; 85730; 86140; 86850; 86900; 86901; 87635; 93970; C1713; C1768; C1776; J0690; J1100; J1650; J1885; J2001; J2250; J2405; J2704; J3010; J3370; J3420; J3490; P9016; P9047; U0003

== ENCOUNTER 2020-05-03 18:42 | Emergency (ER) | payer BC ==
[2020-05-03] MEDS ORDERED: Ketorolac Tromethamine 30 MG/ML VIAL ONE (19:28)
== END 2020-05-03 19:55 | disposition home or self-care (01) ==
LOC: ERS 18:42
DX: G89.29 Other chronic pain (principal); M54.5 Low back pain; F41.9 Anxiety disorder, unspecified; F31.9 Bipolar disorder, unspecified; Z79.899 Other long term (current) drug therapy
CPT/HCPCS: 96372; 99283; J1885

== ENCOUNTER 2020-05-06 06:57 | Outpatient (CLI) | payer BC, OTHER ==
[2020-05-06 17:58] LABS: Hemoglobin 11.8 g/dL (12.0-16.0); Mean Corpuscular HGB CONC 31.3 g/dL (32.0-36.0); Mean Corpuscular Hemoglobin 28.5 pg (27.0-31.0); Mean Corpuscular Volume 90.9 fL (78.0-98.0); Mean Platelet Volume 11.5 fL (7.4-10.4); Platelet Count 173 thou/uL (130-400); RBC Distribution Width 14.3 % (11.5-14.5); Red Blood Cell (RBC) Count 4.15 mill/uL (4.20-5.40); White Blood Cell (WBC) Count 5.6 thou/uL (4.8-10.8)
[2020-05-06 18:17] LABS: INR-International Normal Ratio 0.9; Prothrombin Time 12.3 sec (12.0-14.7)
[2020-05-06 18:18] LABS: Anion Gap 12 mmol/L (10-20); BUN (Urea Nitrogen) 18 mg/dL (7.0-18.7); Calc. Creatinine Clearance 0 mL/min (70-130); Calcium 8.9 mg/dL (7.8-10.44); Carbon Dioxide 23 mmol/L (22-29); Chloride 105 mmol/L (98-107); Estimated GFR-MDRD 80; Glucose 77 mg/dL (70-105); PTT 28.5 sec (22.9-36.1); Potassium 4.9 mmol/L (3.5-5.1); Sodium 135 mmol/L (136-145)
[2020-05-07 14:53] LABS: SARS-CoV-2 MS2 Positive; SARS-CoV-2 N Gene Negative; SARS-CoV-2 S Gene Negative; SARS-CoV-2 by NAA Not Detected (NotDetected); SARS-CoV-2 orf1ab Negative
--- NOTE | 2020-05-08 13:09 | EKG ---
Test Reason : Blood Pressure : / mmHG Vent. Rate : 075 BPM Atrial Rate : 075 BPM P-R Int : 134 ms QRS Dur : 092 ms QT Int : 408 ms P-R-T Axes : 065 014 067 degrees QTc Int : 455 ms Normal sinus rhythm Normal ECG No previous ECGs available Confirmed by TERRENCE ALEXANDRA MD ([id number]) on 05/08/2020 1:09:32 PM Referred By: DIVYA Confirmed By:TERRENCE ALEXANDRA MD
== END 2020-05-06 06:58 | disposition home or self-care (01) ==
LOC: LABBT 06:57
PROVIDERS: ATTEND Surgery
DX: Z01.812 Encounter for preprocedural laboratory examination (principal); M51.16 Intervertebral disc disorders with radiculopathy, lumbar region; M48.062 Spinal stenosis, lumbar region with neurogenic claudication; Z20.828 Contact with and (suspected) exposure to other viral communicable diseases
CPT/HCPCS: 80048; 85027; 85610; 85730; 87635; 93005; 93010; U0003

== ENCOUNTER 2020-05-10 05:47 | Day surgery (SDC) | payer BC ==
[2020-05-06 13:14] VITALS: BMI 26.2
[2020-05-10] MEDS ORDERED: Thrombin 5000 UNITS/5 ML VIAL ONE (06:31)
[2020-05-10] MEDS ORDERED: Fentanyl 250 MCG/5 ML VIAL ONE (06:45)
[2020-05-10] MEDS ORDERED: Rocuronium Bromide 50 MG/5 ML VIAL ONE (09:08)
[2020-05-10] MEDS ORDERED: Ondansetron HCl/PF 4 MG/2 ML Vial IVP PRN (09:52)
[2020-05-10] MEDS ORDERED: Promethazine HCl 25 MG/ML VIAL IM PRN ×2 (09:52→11:02)
[2020-05-10] MEDS ORDERED: Promethazine HCl 25 MG/ML VIAL SLOW IVP PRN (09:52)
[2020-05-10] MEDS ORDERED: HYDROmorphone 2 MG/ML VIAL SLOW IVP PRN (09:52)
[2020-05-10] MEDS ORDERED: HYDROmorphone 2 MG/ML VIAL ONE (10:23)
[2020-05-10] MEDS ORDERED: Acetaminophen 325 MG TAB PO PRN (11:02)
[2020-05-10] MEDS ORDERED: traMADol HCl 50 MG TAB PO PRN (11:02)
[2020-05-10] MEDS ORDERED: Bisacodyl 10 MG SUPP PR PRN (11:02)
[2020-05-10] MEDS ORDERED: Ondansetron PF 4 MG/2 ML Vial IVP PRN (11:02)
[2020-05-10] MEDS ORDERED: Ketorolac Tromethamine 30 MG/ML VIAL IVP PRN (11:02)
[2020-05-10] MEDS ORDERED: Fleet Enema 133 ML BOT PR PRN (11:02)
[2020-05-10] MEDS ORDERED: Milk Of Magnesia 30 ML UDCUP PO PRN (11:02)
[2020-05-10] MEDS ORDERED: diphenhydrAMINE 25 MG CAP PO PRN (11:02)
[2020-05-10] MEDS ORDERED: tiZANidine HCl 4 MG TAB PO PRN (11:02)
[2020-05-10] MEDS ORDERED: Polyethylene Glycol 3350 17 GM Packet PO PRN (11:06)
[2020-05-10] MEDS ORDERED: Zolpidem Tartrate 5 MG TAB PO PRN (11:18)
[2020-05-10] MEDS ORDERED: Lidocaine 1% PF 5 ML VIAL ONE (11:19)
[2020-05-10] MEDS ORDERED: Dexamethasone 20 MG/5 ML VIAL ONE (11:19)
[2020-05-10] MEDS ORDERED: EPHEDRINE 25 MG/5 ML SYRINGE ONE (11:19)
[2020-05-10] MEDS ORDERED: PHENYLEPHRINE-NS 100 MCG/ML 10 ML SYRINGE ONE (11:19)
[2020-05-10] MEDS ORDERED: Ondansetron PF 4 MG/2 ML Vial ONE (11:19)
[2020-05-10] MEDS ORDERED: PROPOFOL 200 MG/20 ML VIAL ONE (11:19)
[2020-05-10] MEDS ORDERED: Rocuronium Bromide 10 MG/ML (10ML VIAL) ONE (11:19)
[2020-05-10] MEDS ORDERED: Glycopyrrolate 0.2 MG/ML 5 ML SYRINGE ONE (11:19)
[2020-05-10] MEDS ORDERED: Ketorolac Tromethamine 30 MG/ML VIAL ONE (11:19)
[2020-05-10] MEDS ORDERED: HYDROmorphone 0.5 MG/0.5 ML SYRINGE ONE ×3 (11:34→13:18)
[2020-05-10] MEDS: Lithium Carbonate 150 MG CAP PO SCH ×2 (14:37→18:59)
[2020-05-10] MEDS: Pregabalin 50 MG CAP PO SCH ×2 (14:41→21:00)
[2020-05-10] MEDS: CEFAZOLIN 2 GM in Premix Bag 1 BAG IVPB SCH ×2 (14:42→21:10)
[2020-05-10] MEDS: Sodium Chloride 0.9% 1,000 ML IV SCH (14:44)
[2020-05-10] MEDS: HYDROcodone/Acetaminophen 7.5/325 mg Tablet PO PRN ×2 (14:53→19:03)
--- NOTE | 2020-05-10 16:05 | OP ---
DATE OF PROCEDURE: 05/10/2020 LOCATION: OR 11. HIGHWAY TRUCK DRIVER: Zena Dietrich PA-C. PREPROCEDURE DIAGNOSIS: Multilevel lumbar stenosis with lumbar disk extrusion with low back and leg pain consistent with neurogenic claudication. POSTPROCEDURE DIAGNOSIS: Multilevel lumbar stenosis with lumbar disk extrusion with low back and leg pain consistent with neurogenic claudication. PROCEDURES PERFORMED: 1. L2-L3, L3-L4, L4-L5 laminectomies, partial facetectomies, foraminotomies. 2. Use of operative microscope for microdissection. 3. Right L4-L5 diskectomy with right L4-L5 transfacet diskectomy for decompression of the traversing and exiting L5 and L4 nerve roots in the right side. DESCRIPTION OF PROCEDURE: After informed consent was obtained from the patient, the patient was brought to the OR. Proper patient, pause, and identification were carried out. The patient was placed under excellent general endotracheal anesthesia and positioned prone on the OR table. A linear cayla was drawn out from the L2 through L5 dorsal spines. This region was sterilely cleansed, prepared, and draped. Proper patient, pause, and identification were carried out. The wound was then opened with a combination of sharp, monopolar, and blunt dissection. The L2-L3, L4-L5 dorsal spines and lamina were exposed. Localization film confirmed our area of interest. We then performed L2-L3, L3-L4, L4-L5 laminectomies, partial facetectomies, foraminotomies. We had excellent decompression of common dural tube; however, we then proceeded to do a right L4-L5 diskectomy with removal of disk fragments compressing the traversing right L5 nerve root. We then turned our attention to the right L4 foramen, where there was lateral and far-lateral disk material and this was removed through a transfacet approach. We had no spinal fluid leak. Copious irrigation occurred throughout. The microscope was used for microdissection. The wound was then copiously irrigated, maximized hemostasis, closed in anatomic layers following sprinkling of vancomycin powder. The patient emerged from anesthesia. Job ID: [id number]
[2020-05-10] MEDS: Morphine 2 MG/ML VIAL SLOW IVP PRN ×2 (18:13→22:54)
[2020-05-10] MEDS: ALPRAZolam 0.5 MG TAB PO SCH (20:58)
[2020-05-10] MEDS ORDERED: Lithium Carbonate 150 MG CAP PO SCH (21:00)
[2020-05-10] MEDS ORDERED: Venlafaxine HCl XR 150 MG CAP PO SCH (21:00)
[2020-05-10] MEDS ORDERED: hydrOXYzine Pamoate 25 mg Capsule PO SCH (21:00)
[2020-05-11] MEDS: Sodium Chloride 0.9% 1,000 ML IV SCH ×2 (00:11→11:51)
[2020-05-11] MEDS: HYDROcodone/Acetaminophen 7.5/325 mg Tablet PO PRN ×4 (00:12→14:46)
[2020-05-11] MEDS: Morphine 2 MG/ML VIAL SLOW IVP PRN ×2 (01:33→03:29)
[2020-05-11 06:12] LABS: #Eosinphils 0.1 thou/uL (0.0-0.7); #Lymphocytes 1.6 thou/uL (1.20-3.40); #Monocytes 0.8 thou/uL (0.11-0.59); #Neutrophils 4.9 thou/uL (1.40-6.50); %Basophils 0.2 % (0.0-1.0); %Eosinophils 1.8 % (0.0-10.0); %Lymphocytes 21.3 % (21.0-51.0); %Monocytes 11.1 % (0.0-10.0); %Neutrophils 65.6 % (42.0-75.0); Hemoglobin 9.3 g/dL (12.0-16.0); Mean Corpuscular HGB CONC 32.3 g/dL (32.0-36.0); Mean Corpuscular Hemoglobin 28.8 pg (27.0-31.0); Mean Platelet Volume 10.1 fL (7.4-10.4); Platelet Count 262 thou/uL (130-400); RBC Distribution Width 14.1 % (11.5-14.5); Red Blood Cell (RBC) Count 3.24 mill/uL (4.20-5.40); White Blood Cell (WBC) Count 7.4 thou/uL (4.8-10.8)
[2020-05-11 06:34] LABS: Anion Gap 11 mmol/L (10-20); BUN (Urea Nitrogen) 14 mg/dL (7.0-18.7); Calc. Creatinine Clearance 113 mL/min (70-130); Calcium 8.1 mg/dL (7.8-10.44); Carbon Dioxide 22 mmol/L (22-29); Chloride 106 mmol/L (98-107); Estimated GFR-MDRD 89; Glucose 127 mg/dL (70-105); Potassium 3.6 mmol/L (3.5-5.1); Sodium 135 mmol/L (136-145)
[2020-05-11] MEDS: Acetaminophen/Codeine 30-300mg Tablet PO PRN ×2 (08:16→11:56)
[2020-05-11] MEDS: Pregabalin 50 MG CAP PO SCH ×2 (08:18→14:44)
[2020-05-11] MEDS: ALPRAZolam 0.5 MG TAB PO SCH (08:19)
[2020-05-11] MEDS ORDERED: Docusate 100 MG CAP PO SCH (09:00)
[2020-05-11] MEDS ORDERED: ALPRAZolam 0.5 MG TAB PO SCH (09:15)
--- NOTE | 2020-05-11 09:57 | PRG ---
DATE OF SERVICE: Ms. Hanson is postoperative day #1 following L2-L5 laminectomy, partial facetectomy, and foraminotomies with right L4-L5 paracentral and far lateral diskectomies via transfacet approach. She does state her low back and leg pain has improved compared to before surgery. Due to a prior spinal cord nerve root compression in the neck, she has had a long-standing neurologic deficits on the right side of her body; however, she does tell us that despite improvement following her anterior- posterior reconstruction surgery of her cervical spine, she was improving. However, she states over the last one month she has had essentially a wrist drop on the right side with both wrist extensor and finger extensor weakness. This is certainly evident on exam. She informed us of this yesterday prior to her lumbar surgery. While she has improvement in her strength in her lower extremities and in her upper extremities with exception of chronic mild right lower extremity weakness due to a prior cord compression and this new deficit of right wrist and finger drop, I think it is prudent that we obtain an MRI of the cervical spine and also a CT of the cervical spine. If this does not demonstrate anything that warrants neurosurgical intervention, we may be dealing with a [place]-Bar[place] syndrome or brachial plexitis. She has no pain or numbness or tingling but simply just a wrist drop and finger extensor drop. We will plan for followup based on her imaging today. ADDENDUM: I see no hardware or compressive issue that would explain her symptoms. We will arrange for OT on outpatient basis and consider RUE EMG/NCV at outpatient with Dr Luque referral. Job ID: [id number] [facility]ITAL[facility]
--- NOTE | 2020-05-11 09:58 | CT ---
CT Cervical Spine WO Con History: Assess surgical hardware. Comparison: CT cervical spine January 28, 2020. Findings: ACDF hardware now spans C3-C7. Posterior spinal fusion hardware now spans C3-T1. Normal loc ation of the interbody spacers. No hardware complication. Mild widening of the right C5/C6 facet joint and bilateral C6/C7 facet joints. New C7 laminectomy change. Lung apices are clear. Paraspinal soft tissues are unremarkable. The right C3, C4 and C5 screws are within the facet joint, unchanged from the comparison exam. Impression: Extension of anterior and posterior spinal fusion with replacement of the interbody space r at C6/C7 without hardware complication.
--- NOTE | 2020-05-11 14:21 | MRI ---
MRI OF THE CERVICAL SPINE WITHOUT CONTRAST: INDICATION: History of right wrist drop. COMPARISON: Prior radiograph dated 03/28/2020 of the cervical spine and MRI of the cervical spine with and without contrast 01/29/2020. Review of the comparison CT from 05/11/2020 was performed. FINDINGS: There is susceptibility artifact from instrumentation consistent with an anterior and posterior lumba r interbody fusion spanning anteriorly from C3 through C7. There is posterolateral spinal fusion fro m C3 through T1. There are laminectomy changes from C3 through C6. Visualized posterior fossa is unremarkable-appearing. At C2-C3, there is a mild broad-based bulge and mild facet joint degenerative change without apprecia ble central canal or neural foraminal narrowing. At C3-4, there is uncovertebral hypertrophy and fact hypertrophy inducing mild right neural foraminal narrowing which is stable. At C4-5, there is no appreciable central canal or neural foraminal narrowing. At C5-6, there is residual uncovertebral hypertrophy on the right inducing moderate right neural fora oscar narrowing which is stable. At C6-7, there is no appreciable central canal or neural foraminal narrowing. At C7-T1, there is no appreciable central canal or neural foraminal narrowing. At T1-T2, there is no appreciable central canal or neural foraminal narrowing. The spinal cord demonstrates normal signal intensity and contour. IMPRESSION: 1. Long-segment anterior cervical diskectomy and fusion involving C3 through C7 with posterolateral arthrodesis spanning C3 through T1. 2. Some residual right-sided neural foraminal narrowing at C5-6 and at C3-4. POS: [facility]
[2020-05-11 15:13] VITALS: BP 101/69; TEMP 98.7
== END 2020-05-11 15:45 | disposition home or self-care (01) ==
LOC: SDC 05:47 → SURG A 11:02 → SDC 05-11 15:45
PROVIDERS: ATTEND Surgery
PROC: 0ST20ZZ Resection of Lumbar Vertebral Disc, Open Approach (ICD-10-PCS; principal; 2020-05-10)
PROC: 00NY0ZZ Release Lumbar Spinal Cord, Open Approach (ICD-10-PCS; principal; 2020-05-10)
DX: M48.061 Spinal stenosis, lumbar region without neurogenic claudication (principal); M51.16 Intervertebral disc disorders with radiculopathy, lumbar region; M48.02 Spinal stenosis, cervical region; M43.02 Spondylolysis, cervical region; G99.2 Myelopathy in diseases classified elsewhere; Z79.899 Other long term (current) drug therapy
CPT/HCPCS: 36415; 72125; 72141; 76000; 80048; 85025; J0690; J1100; J1170; J1885; J2270; J2405; J2550; J2704; J3010; J3370; J3490

== ENCOUNTER 2020-05-13 08:45 | Emergency (ER) | payer BC ==
[2020-05-13 09:52] LABS: #Eosinphils 0.1 thou/uL (0.0-0.7); #Lymphocytes 0.7 thou/uL (1.20-3.40); #Monocytes 0.3 thou/uL (0.11-0.59); #Neutrophils 6.4 thou/uL (1.40-6.50); %Basophils 0.1 % (0.0-1.0); %Eosinophils 1.2 % (0.0-10.0); %Lymphocytes 9.1 % (21.0-51.0); %Monocytes 3.7 % (0.0-10.0); %Neutrophils 85.9 % (42.0-75.0); Hemoglobin 10.1 g/dL (12.0-16.0); Mean Corpuscular HGB CONC 32.1 g/dL (32.0-36.0); Mean Corpuscular Hemoglobin 28.5 pg (27.0-31.0); Mean Corpuscular Volume 88.9 fL (78.0-98.0); Platelet Count 309 thou/uL (130-400); RBC Distribution Width 13.7 % (11.5-14.5); Red Blood Cell (RBC) Count 3.55 mill/uL (4.20-5.40); White Blood Cell (WBC) Count 7.4 thou/uL (4.8-10.8)
[2020-05-13 10:14] LABS: ALT (SGPT) Less than 7 U/L (8-55); AST (SGOT) 19 U/L (5-34); Albumin 3.9 g/dL (3.5-5.0); Alkaline Phosphatase 111 U/L (40-110); Anion Gap 17 mmol/L (10-20); BUN (Urea Nitrogen) 8 mg/dL (7.0-18.7); Bilirubin, Total 0.4 mg/dL (0.2-1.2); Calc. Creatinine Clearance 0 mL/min (70-130); Calcium 8.9 mg/dL (7.8-10.44); Carbon Dioxide 18 mmol/L (22-29); Chloride 105 mmol/L (98-107); Estimated GFR-MDRD Greater than 90; Globulin 3.2 g/dL (2.4-3.5); Glucose 138 mg/dL (70-105); Potassium 3.7 mmol/L (3.5-5.1); Protein, Total 7.1 g/dL (6.0-8.3); Sodium 136 mmol/L (136-145)
[2020-05-13 10:15] LABS: Bacteria/HPF None Seen HPF (None Seen); Bilirubin Negative (Negative); Blood, Urine Negative (Negative); Clarity Clear (Clear); Glucose, Urine (Dipstick) Normal (Negative); Ketone, Urine Greater than 150 mg/dL (Negative); Leukocyte Negative Leu/uL (Negative); Nitrite Negative (Negative); Protein, Urine (Dipstick) 30 mg/dL (Neg-Trace); RBC/HPF 0-3 HPF (0-3); Squamous Epithelial 0-3 HPF (0-3); Urobilinogen Normal mg/dL (Less than 2); WBC/HPF 0-3 HPF (0-3); pH, Urine 6.5 (5.0-9.0)
[2020-05-13 10:16] LABS: Pregnancy Test - Urine (BHCG) Negative (Negative); Pregu Control Background? CLEAR/WHITE (CLR/WHITE); Pregu Control Bar Appear? YES (CONTROL BAR)
[2020-05-13] MEDS ORDERED: Mineral Oil ENEMA PR SCH (10:30)
[2020-05-13] MEDS ORDERED: HYDROcodone/Acetaminophen 5/325 mg Tablet ONE ×2 (11:27→16:00)
--- NOTE | 2020-05-13 13:15 | CT ---
CT PULMONARY ANGIOGRAM WITH IV CONTRAST AND 3-D POSTPROCESSING: HISTORY:Postop persistent tachycardia FINDINGS: There is good contrast opacification of the pulmonary arterial vasculature without filling defects to suggest pulmonary embolism. The thoracic aorta is without aneurysm or dissection. No pleural or pericardial effusions are seen. No pneumothoraces, focal areas of consolidation or lung nodules are noted. There are degenerative changes in the spine. Upper abdominal tomograms demonstrate gallstones. IMPRESSION: No CT evidence of pulmonary embolism.
[2020-05-13] MEDS ORDERED: Iopamidol-370 76% 500 ML 1 ML ONE (13:23)
[2020-05-13 13:33] LABS: Lactic Acid 1.6 mmol/L (0.5-2.2)
--- NOTE | 2020-05-13 15:06 | MRI ---
Exam: Lumbar spine MRI with and without contrast COMPARISON: 01/05/2020. HISTORY: Postoperative fever. Pain. Patient had surgery on 05/10/2020. FINDINGS: Appropriate T1 marrow signal intensity of the lumbar vertebra. Lumbar spine vertebral body height is maintained. No fracture. There appear to be type I and type II Modic changes at the L3-L4 level. 0.6 cm of anterolisthesis of L4 upon L5. Appropriate signal intensity visualized psoas muscles and solid organs. Conus medullaris terminates at the mid L1 level. Postcontrast images do not demonstrate any abnormal enhancement with regards to the vertebral bodies. There is no abnormal enhancement within the thecal sac. There is a postoperative T2 hyperintense collection with incomplete enhancement spanning the laminectomy site from L2 through L5. Craniocaudal dimension is 8.5 cm. Additional fluid signal intensity is noted in the midline soft tissues and subcutaneous fat. T12-L1: No significant central canal stenosis or significant neural foraminal narrowing. L1-L2: Mild narrowing of the thecal sac secondary to left facet hypertrophy and ligamentum flavum thi ckening. No significant central canal stenosis. Patent bilateral neural foramina. L2-L3: Posterior laminectomy defect. There is fluid signal intensity along the posterior aspect of th e laminectomy defect site. There is resultant moderate stenosis of the thecal sac. Patent bilateral neural foramina. L3-L4: Moderate loss of disc space height. Broad-based disc bulge. Laminectomy defect. There is perip herally enhancing fluid signal intensity at the laminectomy defect site. There is resultant moderate to severe central canal stenosis from mass effect produced by this fluid signal intensity co llection. There is abnormal signal intensity involving the right and left neural foramina suggesting possible enhancing granulation tissue. There is moderate bilateral neural foraminal narrow ing. L4-L5: Desiccation with severe loss of disc space height. Broad-based disc bulge and prominent epidur al fat result in severe central canal stenosis. There is abnormal fluid signal intensity with partial enhancement at the laminectomy defect site which also does contribute to the overall degree o f central canal stenosis. Moderate to severe right and moderate left foraminal narrowing predominantly due to disc material. Component of granulation tissue cannot be excluded. L5-S1: Adequate disc hydration. No significant central canal stenosis or significant neural foraminal narrowing. There is bilateral facet hypertrophy. IMPRESSION: 1. Laminectomy defect from L2-L3 through L4-L5. There is evidence of a fluid signal intensity at the operative site with incomplete peripheral enhancement. Postoperative fluid is favored. However, developing abscess cannot be excluded. 2. Significant central canal stenosis secondary to aforementioned fluid collection. There is moderate central canal stenosis at L2-L3, moderate to severe central canal stenosis at L3-L4 and severe central canal stenosis at L4-L5. 3. Neurosurgical consultation is recommended. Results discussed with Roge Monterroso 05/13/2020 at4:00 PM Code CR Transcribed Date/Time: 05/13/2020 4:01 PM
[2020-05-13] MEDS ORDERED: HYDROcodone/Acetaminophen 10/325 mg Tablet ONE (15:59)
--- NOTE | 2020-05-13 20:09 | CON ---
DATE OF CONSULTATION: CHIEF COMPLAINT: Postop fever with lower back pain. HISTORY OF PRESENT ILLNESS: Ms. Hanson is a 44-year-old female, who presents to the emergency room postop L2-L3, L3-L4, and L4-L5 laminectomy on 05/10/2020. This is her fourth lumbar surgery. States she has been running a fever of 101 and severe lower back pain. She states that in her incision, there is a clear drainage. Denies any pus. Spiral CT was performed in the emergency room, which was negative for pneumonia, atelectasis, and PE. Urinalysis was also done showing no urinary tract infection. White blood cells were 7.4. Doppler ultrasound of the bilateral lower extremities is pending to rule out DVT. MRI of the L-spine was performed, which is very difficult to read since it was three days postop. When I saw Ms. Hanson, she was awake and alert, in no acute distress or pain. She had free active range of motion of all her extremities. No focal motor weakness. No reflex asymmetry. Her nurse tells me she is impacted with stool due to constipation possibly from Tyelenol #4. REVIEW OF SYSTEMS: CONSTITUTIONAL: Reports fever. Denies chills. ENT: Denies change in vision or hearing. CARDIAC: Denies chest pain, shortness of breath, or diaphoresis. PULMONARY: Denies shortness of breath, cough, or hemoptysis. GI: Denies abdominal pain, nausea, vomiting, or diarrhea. Reports constipation. : Denies trouble with urination, frequency of urination, or bloody urine. SKIN: Denies skin rashes, bruises, bleeding, or skin masses. MUSCULOSKELETAL: As per history of present illness. NEUROLOGIC: As per history of present illness. PSYCHOLOGIC: As per history of present illness. MEDICATIONS: 1. Alprazolam 0.5 mg. 2. Effexor XR 150 mg. 3. Seroquel 200 mg. 4. [place] 150 mg. 5. Lyrica 200 mg. 6. Hydroxyzine 25 mg. 7. Tylenol No. 4. PAST MEDICAL HISTORY: Medical history; unspecified arrhythmias, hypotension, and chronic pain PAST SURGICAL HISTORY: Laminectomy on 05/10/2020, left shoulder, left hand, bilateral great toes, nasal surgery, grafts in the neck. PSYCHIATRIC HISTORY: Anxiety, bipolar, and depression. No history of suicidal ideation. SOCIAL HISTORY: Denies smoking, alcohol, and illicit drug use. FAMILY HISTORY: Includes coronary artery disease, diabetes, and malignancy. PHYSICAL EXAMINATION: VITAL SIGNS: BP 128/88, pulse 100, respiratory rate 18, and temperature is 98.3. I do not see any temperatures over 100.3 noted in the electronic records. HEENT: Pupils are equal. Extraocular movements are intact. NECK: Soft and supple. No masses are noted. Range of motion is intact and nonpainful. NEUROLOGIC: Awake, alert, and oriented x3. Memory, attention, and fund of knowledge are normal. Cranial nerves are grossly intact. Lower extremities are 5/5 in left iliopsoas, quadriceps, hamstrings, anterior tib, EHL, and gastrocnemius. Right leg is 4/5 in quadriceps and 5/5 in the iliopsoas, hamstring, anterior tib, EHL, and gastrocnemius. There is no area of dermatomal sensory loss. The reflexes are symmetric. The toes are downgoing. Incision is well aligned. No external sutures. Overall healing well. No signs of infection. Clean and dry. There is no erythema, edema, or drainage noted. PLAN: If bilateral lower extremity Doppler ultrasound is positive for DVT, the patient will be admitted. Otherwise, the patient will be discharged home. I will prescribe some Keflex and sent to Pharmacy for post surgical infection along with some MiraLAX for constipation. On PDMP noted, she received Tylenol No. 4 on May 11 #56 for seven days. Our clinic will try and get her into Rehab. We will follow up with a phone call on Saturday, May 16 and two weeks in our clinic. The patient instructed to call the on-call service if there are any further worsening symptoms. The patient understands and agrees with the plan. Job ID: [id number] MTDD
--- NOTE | 2020-05-13 20:13 | ULT ---
BILATERAL LOWER EXTREMITY VENOUS DUPLEX EXAM: 05/13/20 Deep veins of both lower extremities evaluated with ultrasound and Doppler with color Doppler, spectr al analysis and compression. INDICATIONS: Postop. Fever. Lower extremity pain and edema. FINDINGS: Deep veins of both lower extremities demonstrate normal blood flow and compression. No evidence of DV T identified. IMPRESSION: Negative bilateral lower extremity venous duplex exam. POS: AGW
== END 2020-05-13 20:33 | disposition home or self-care (01) ==
LOC: ERS 08:45
DX: R50.9 Fever, unspecified (principal); M54.5 Low back pain; F41.9 Anxiety disorder, unspecified; F31.9 Bipolar disorder, unspecified; Z79.01 Long term (current) use of anticoagulants; Z79.899 Other long term (current) drug therapy
CPT/HCPCS: 36415; 36600; 51701; 71275; 72158; 80053; 81003; 81015; 81025; 83605; 85025; 85652; 86140; 87040; 93970; 96360; Q9967

== ENCOUNTER 2020-05-14 06:22 | Emergency (ER) | payer BC ==
[2020-05-14 08:51] LABS: #Eosinphils 0.1 thou/uL (0.0-0.7); #Lymphocytes 0.8 thou/uL (1.20-3.40); #Monocytes 0.4 thou/uL (0.11-0.59); #Neutrophils 4.6 thou/uL (1.40-6.50); %Basophils 0.8 % (0.0-1.0); %Eosinophils 2.3 % (0.0-10.0); %Lymphocytes 13.7 % (21.0-51.0); %Monocytes 6.8 % (0.0-10.0); %Neutrophils 76.5 % (42.0-75.0); Hemoglobin 9.9 g/dL (12.0-16.0); Mean Corpuscular HGB CONC 32.2 g/dL (32.0-36.0); Mean Corpuscular Hemoglobin 28.6 pg (27.0-31.0); Mean Corpuscular Volume 88.8 fL (78.0-98.0); Mean Platelet Volume 9.5 fL (7.4-10.4); Platelet Count 368 thou/uL (130-400); RBC Distribution Width 13.9 % (11.5-14.5); Red Blood Cell (RBC) Count 3.47 mill/uL (4.20-5.40)
[2020-05-14 09:09] LABS: ALT (SGPT) Less than 7 U/L (8-55); AST (SGOT) 19 U/L (5-34); Albumin 3.7 g/dL (3.5-5.0); Alkaline Phosphatase 105 U/L (40-110); Anion Gap 20 mmol/L (10-20); BUN (Urea Nitrogen) 7 mg/dL (7.0-18.7); Bilirubin, Total 0.3 mg/dL (0.2-1.2); Calc. Creatinine Clearance 0 mL/min (70-130); Calcium 8.7 mg/dL (7.8-10.44); Carbon Dioxide 15 mmol/L (22-29); Chloride 104 mmol/L (98-107); Estimated GFR-MDRD Greater than 90; Globulin 3.2 g/dL (2.4-3.5); Glucose 116 mg/dL (70-105); Potassium 3.9 mmol/L (3.5-5.1); Protein, Total 6.9 g/dL (6.0-8.3); Sodium 135 mmol/L (136-145)
--- NOTE | 2020-05-14 09:10 | RAD ---
PORTABLE CHEST: HISTORY: The patient had a laminectomy on May 10. Pain and fever. Began having chest pain and shortn ess of breath. COMPARISON: 11/06/2019 exam. FINDINGS: Heart size and mediastinum within normal limits. Lungs appear clear of any infiltrative process. Po stoperative changes of the cervical spine are seen. IMPRESSION: No active intrathoracic disease. POS: OFF
[2020-05-14] MEDS ORDERED: Morphine 4 MG/ML VIAL ONE (13:36)
== END 2020-05-14 13:43 | disposition home or self-care (01) ==
LOC: ERS 06:22
DX: M54.5 Low back pain (principal); R07.89 Other chest pain; F41.9 Anxiety disorder, unspecified; F31.9 Bipolar disorder, unspecified; Z79.899 Other long term (current) drug therapy
CPT/HCPCS: 36415; 71045; 80053; 83605; 84484; 85025; 93005; 96374; J2270

== ENCOUNTER 2020-07-13 08:45 | Outpatient (CLI) | payer BC ==
--- NOTE | 2020-07-13 10:27 | MRI ---
EXAM: MRI Upper Ext Jt Rt W WO Con DATE: 07/13/2020 9:00 AM INDICATION: 45-year-old female with history of brachial plexus injury complains of loss of strength in the right hand COMPARISON: Prior MR the cervical spine without contrast dated May 11, 2020 FINDIN cc of MultiHance was utilized for the exam. Motion artifact slightly limits image detail. Susceptibility artifact slightly limits evaluation of the proximal cervical nerve roots. No definite mass, signal abnormality or region of abnormal enhancement is seen involving the right brachial plexus. No lymphadenopathy is noted. No muscular atrophy is grossly evident involving the right shoul jose girdle. There is a degenerative subchondral cystlike abnormality involving the right greater tuberosity. There is mild AC joint osteoarthrosis. IMPRESSION: 1. No definite mass, signal abnormality or region of abnormal enhancement involving the right brachia l plexus. 2. No overt muscular atrophy seen involving the right shoulder girdle .
[2020-07-13] MEDS ORDERED: Magnevist 469MG/ML 20 ML VIAL ONE (14:37)
== END 2020-07-13 08:46 | disposition home or self-care (01) ==
LOC: BICMRI 08:45
PROVIDERS: ATTEND Surgery
DX: S14.3XXA Injury of brachial plexus, initial encounter (principal)
CPT/HCPCS: A9579

== ENCOUNTER 2020-11-30 12:17 | Observation (INO) | payer BC ==
[2020-11-30 14:00] LABS: #Lymphocytes 0.7 thou/uL (1.20-3.40); #Monocytes 0.3 thou/uL (0.11-0.59); #Neutrophils 4.3 thou/uL (1.40-6.50); %Basophils 0.6 % (0.0-1.0); %Eosinophils 0.2 % (0.0-10.0); %Lymphocytes 13.4 % (21.0-51.0); %Monocytes 5.2 % (0.0-10.0); %Neutrophils 80.7 % (42.0-75.0); Hemoglobin 11.4 g/dL (12.0-16.0); Mean Corpuscular Hemoglobin 27.3 pg (27.0-31.0); Mean Corpuscular Volume 82.9 fL (78.0-98.0); Mean Platelet Volume 10.1 fL (7.4-10.4); Platelet Count 327 thou/uL (130-400); RBC Distribution Width 18.4 % (11.5-14.5); Red Blood Cell (RBC) Count 4.16 mill/uL (4.20-5.40); White Blood Cell (WBC) Count 5.3 thou/uL (4.8-10.8)
[2020-11-30 14:07] LABS: BHCG - Serum Negative (NEGATIVE)
[2020-11-30 14:08] LABS: Pregs Control Background? CLEAR/WHITE (CLR/WHITE); Pregs Control Bar Appear? YES (CONTROL BAR)
[2020-11-30 14:23] LABS: ALT (SGPT) 10 U/L (8-55); AST (SGOT) 20 U/L (5-34); Albumin 4.3 g/dL (3.5-5.0); Alkaline Phosphatase 139 U/L (40-110); Anion Gap 18 mmol/L (10-20); BUN (Urea Nitrogen) 16 mg/dL (7.0-18.7); Bilirubin, Total 0.3 mg/dL (0.2-1.2); Calc. Creatinine Clearance 0 mL/min (70-130); Calcium 9.6 mg/dL (7.8-10.44); Carbon Dioxide 19 mmol/L (22-29); Chloride 102 mmol/L (98-107); Globulin 3.6 g/dL (2.4-3.5); Glucose 126 mg/dL (70-105); Lipase 11 U/L (8-78); Protein, Total 7.9 g/dL (6.0-8.3); Sodium 135 mmol/L (136-145)
[2020-11-30 17:44] LABS: Acetaminophen Less than 6.0 mcg/mL (10.0-30.0); Alcohol Less than 10 mg/dL (Less than 10); Salicylate Less than 8.0 mg/dL (15.0-30.0)
[2020-11-30 18:13] LABS: Bilirubin Small (Negative); Blood, Urine Negative (Negative); Glucose, Urine (Dipstick) Negative (Negative); Ketone, Urine 40 mg/dL (Negative); Leukocyte Negative (Negative); Nitrite Negative (Negative); Protein, Urine (Dipstick) Trace mg/dL (Neg-Trace); Specific Gravity, Urine 1.025 (1.005-1.030); Urobilinogen 0.2 mg/dL (Less than 2)
[2020-11-30 18:14] LABS: Medtox Reader # READER 4; Phencyclidine (PCP) Not Detected (NotDetected); THC/Cannabinoid Screen Not Detected (NotDetected)
[2020-11-30 18:15] LABS: Amphetamine Not Detected (NotDetected); Barbiturates Screen Not Detected (NotDetected); Benzodiazepine Screen Not Detected (NotDetected); Cocaine Metabolite Screen Not Detected (NotDetected); Medtox Control Line Valid? VALID (VALID); Methadone Not Detected (NotDetected); Methamphetamine Not Detected (NotDetected); Opiate Screen Not Detected (NotDetected); Oxycodone Screen Not Detected (NotDetected); Tricyclic Screen Detected (NotDetected)
[2020-11-30 18:18] LABS: Clarity Hazy (Clear)
[2020-11-30 18:25] LABS: Bacteria/HPF 1+ HPF (None Seen); RBC/HPF 0-3 HPF (0-3); WBC/HPF None Seen HPF (0-3)
[2020-11-30] MEDS ORDERED: cefTRIAXone\\ROCEPHIN 1 GM VIAL ONE (19:45)
[2020-11-30 22:05] VITALS: BMI 30.6
[2020-11-30] MEDS ORDERED: Ondansetron PF 4 MG/2 ML Vial IVP PRN (23:10)
[2020-11-30] MEDS ORDERED: Docusate 100 MG CAP PO PRN (23:13)
[2020-11-30] MEDS ORDERED: Docusate 100 MG CAP PO SCH (23:15)
[2020-11-30] MEDS ORDERED: Polyethylene Glycol 3350 17 GM Packet PO SCH (23:45)
[2020-12-01 02:31] LABS: SARS-CoV-2 PCR by NAA Not Detected (NotDetected)
[2020-12-01 09:15] LABS: #Basophils 0.1 thou/uL (0.0-0.2); #Lymphocytes 1.2 thou/uL (1.20-3.40); #Monocytes 0.3 thou/uL (0.11-0.59); #Neutrophils 3.9 thou/uL (1.40-6.50); %Eosinophils 0.9 % (0.0-10.0); %Lymphocytes 21.3 % (21.0-51.0); %Monocytes 5.8 % (0.0-10.0); Hemoglobin 10.9 g/dL (12.0-16.0); Mean Corpuscular HGB CONC 32.6 g/dL (32.0-36.0); Mean Corpuscular Hemoglobin 27.3 pg (27.0-31.0); Mean Corpuscular Volume 83.6 fL (78.0-98.0); Mean Platelet Volume 9.7 fL (7.4-10.4); Platelet Count 356 thou/uL (130-400); RBC Distribution Width 18.4 % (11.5-14.5); White Blood Cell (WBC) Count 5.5 thou/uL (4.8-10.8)
[2020-12-01] MEDS: Lithium Carbonate 150 MG CAP PO SCH ×2 (09:30→21:08)
[2020-12-01] MEDS: Acetaminophen 325 MG TAB PO PRN (09:30)
[2020-12-01] MEDS: Polyethylene Glycol 3350 17 GM Packet PO SCH (09:30)
[2020-12-01 09:36] LABS: Anion Gap 13 mmol/L (10-20); BUN (Urea Nitrogen) 14 mg/dL (7.0-18.7); Calc. Creatinine Clearance 129 mL/min (70-130); Calcium 9.3 mg/dL (7.8-10.44); Carbon Dioxide 23 mmol/L (22-29); Chloride 102 mmol/L (98-107); Glucose 127 mg/dL (70-105); Potassium 3.9 mmol/L (3.5-5.1); Sodium 134 mmol/L (136-145)
[2020-12-01] MEDS ORDERED: Magnesium Citrate 300 ML BOT PO SCH (09:39)
[2020-12-01] MEDS ORDERED: Bisacodyl 10 MG SUPP PR SCH (09:45)
[2020-12-01] MEDS: ALPRAZolam 0.5 MG TAB PO PRN ×2 (12:13→21:08)
[2020-12-01] MEDS ORDERED: Zolpidem Tartrate 5 MG TAB PO PRN (15:54)
[2020-12-01] MEDS: Venlafaxine HCl XR 150 MG CAP PO SCH (21:08)
[2020-12-01] MEDS: hydrOXYzine Pamoate 25 mg Capsule PO SCH (21:08)
[2020-12-01] MEDS: Senokot S 8.6-50 MG TAB PO SCH (21:08)
[2020-12-01] MEDS: Pregabalin 50 MG CAP PO SCH (21:10)
[2020-12-02 06:36] LABS: Eosinophils 5 % (0-10); Hemoglobin 9.8 g/dL (12.0-16.0); Lymphocytes 45 % (21-51); MDiff Complete? YES; Mean Corpuscular HGB CONC 31.8 g/dL (32.0-36.0); Mean Corpuscular Hemoglobin 26.9 pg (27.0-31.0); Mean Corpuscular Volume 84.7 fL (78.0-98.0); Mean Platelet Volume 9.9 fL (7.4-10.4); Monocytes 9 % (0-10); Neutrophil 41 % (42-75); Platelet Count 298 thou/uL (130-400); RBC Distribution Width 18.3 % (11.5-14.5); Red Blood Cell (RBC) Count 3.62 mill/uL (4.20-5.40); White Blood Cell (WBC) Count 4.8 thou/uL (4.8-10.8)
[2020-12-02 06:41] LABS: Anion Gap 10 mmol/L (10-20); BUN (Urea Nitrogen) 12 mg/dL (7.0-18.7); Calc. Creatinine Clearance 124 mL/min (70-130); Calcium 9.3 mg/dL (7.8-10.44); Carbon Dioxide 27 mmol/L (22-29); Chloride 106 mmol/L (98-107); Glucose 103 mg/dL (70-105); Potassium 3.4 mmol/L (3.5-5.1); Sodium 140 mmol/L (136-145)
[2020-12-02] MEDS ORDERED: Electrolyte Replacement Protocol FS PRN (08:15)
[2020-12-02] MEDS ORDERED: Potassium Chloride 20 MEQ TAB PO SCH (08:45)
[2020-12-02] MEDS: Polyethylene Glycol 3350 17 GM Packet PO SCH (10:49)
[2020-12-02] MEDS: Senokot S 8.6-50 MG TAB PO SCH ×2 (10:49→21:52)
[2020-12-02] MEDS: Pregabalin 50 MG CAP PO SCH ×3 (10:49→21:50)
[2020-12-02] MEDS: Lithium Carbonate 150 MG CAP PO SCH ×2 (10:54→21:51)
[2020-12-02] MEDS: ALPRAZolam 0.5 MG TAB PO PRN ×3 (10:54→23:02)
[2020-12-02] MEDS ORDERED: ALPRAZOLAM 0.5 MG PO PRN (11:18)
[2020-12-02] MEDS ORDERED: Bisacodyl 10 MG SUPP PR PRN (11:19)
[2020-12-02] MEDS ORDERED: Fleet Enema 133 ML BOT PR PRN (11:20)
[2020-12-02] MEDS: hydrOXYzine Pamoate 25 mg Capsule PO SCH (21:51)
[2020-12-02] MEDS: Venlafaxine HCl XR 150 MG CAP PO SCH (21:52)
[2020-12-02] MEDS: Acetaminophen 325 MG TAB PO PRN (23:02)
[2020-12-03 06:30] LABS: #Eosinphils 0.1 thou/uL (0.0-0.7); #Lymphocytes 2.3 thou/uL (1.20-3.40); #Monocytes 0.4 thou/uL (0.11-0.59); #Neutrophils 2.6 thou/uL (1.40-6.50); %Basophils 0.2 % (0.0-1.0); %Eosinophils 2.6 % (0.0-10.0); %Lymphocytes 41.7 % (21.0-51.0); %Monocytes 6.6 % (0.0-10.0); %Neutrophils 48.9 % (42.0-75.0); Hemoglobin 8.9 g/dL (12.0-16.0); Mean Corpuscular HGB CONC 30.5 g/dL (32.0-36.0); Mean Corpuscular Hemoglobin 26.1 pg (27.0-31.0); Mean Corpuscular Volume 85.9 fL (78.0-98.0); Mean Platelet Volume 10.1 fL (7.4-10.4); Platelet Count 292 thou/uL (130-400); RBC Distribution Width 18.5 % (11.5-14.5); Red Blood Cell (RBC) Count 3.39 mill/uL (4.20-5.40); White Blood Cell (WBC) Count 5.4 thou/uL (4.8-10.8)
[2020-12-03 06:50] LABS: Anion Gap 10 mmol/L (10-20); BUN (Urea Nitrogen) 14 mg/dL (7.0-18.7); Calc. Creatinine Clearance 118 mL/min (70-130); Calcium 8.5 mg/dL (7.8-10.44); Carbon Dioxide 26 mmol/L (22-29); Chloride 105 mmol/L (98-107); Glucose 112 mg/dL (70-105); Potassium 3.8 mmol/L (3.5-5.1); Sodium 137 mmol/L (136-145)
[2020-12-03] MEDS: Pregabalin 50 MG CAP PO SCH ×3 (08:57→20:27)
[2020-12-03] MEDS: Lithium Carbonate 150 MG CAP PO SCH ×2 (08:57→20:26)
[2020-12-03] MEDS: Senokot S 8.6-50 MG TAB PO SCH ×2 (08:57→20:25)
[2020-12-03] MEDS: Polyethylene Glycol 3350 17 GM Packet PO SCH (08:58)
[2020-12-03] MEDS: ALPRAZolam 0.5 MG TAB PO PRN ×2 (12:01→18:00)
[2020-12-03] MEDS ORDERED: Cyclobenzaprine 10 MG TAB PO PRN (12:43)
[2020-12-03] MEDS ORDERED: Cyclobenzaprine 10 MG TAB PO SCH (12:45)
[2020-12-03] MEDS ORDERED: Lidocaine 5% Patch TD SCH (13:00)
[2020-12-03] MEDS: HYDROcodone/Acetaminophen 5/325 mg Tablet PO PRN ×2 (13:23→17:59)
[2020-12-03] MEDS: Venlafaxine HCl XR 150 MG CAP PO SCH (20:27)
[2020-12-03] MEDS: hydrOXYzine Pamoate 25 mg Capsule PO SCH (20:28)
[2020-12-04] MEDS ORDERED: Lidocaine Patch Removal TOP SCH (01:00)
[2020-12-04] MEDS: HYDROcodone/Acetaminophen 5/325 mg Tablet PO PRN ×2 (05:42→10:20)
[2020-12-04] MEDS: ALPRAZolam 0.5 MG TAB PO PRN (06:05)
[2020-12-04] MEDS: Senokot S 8.6-50 MG TAB PO SCH (08:41)
[2020-12-04] MEDS: Pregabalin 50 MG CAP PO SCH (08:42)
[2020-12-04] MEDS: Lithium Carbonate 150 MG CAP PO SCH (08:42)
[2020-12-04] MEDS: Polyethylene Glycol 3350 17 GM Packet PO SCH (08:42)
[2020-12-04] MEDS: Acetaminophen 325 MG TAB PO PRN (08:47)
[2020-12-04 08:55] VITALS: BP 125/57; TEMP 97.3
== END 2020-12-04 11:10 | disposition home or self-care (01) ==
LOC: ERS 12:17 → 2NO 19:52 → T4-A 12-01 20:26
PROVIDERS: ADMIT Internal Medicine; ATTEND Family Medicine
DX: K59.09 Other constipation (principal); G92 Toxic encephalopathy; R53.1 Weakness; G89.29 Other chronic pain; M54.9 Dorsalgia, unspecified; J32.1 Chronic frontal sinusitis; M25.552 Pain in left hip; Z87.891 Personal history of nicotine dependence; Z79.899 Other long term (current) drug therapy; Z20.822 Contact with and (suspected) exposure to COVID-19
CPT/HCPCS: 36415; 70450; 70551; 71045; 74019; 74176; 80048; 80053; 80306; 80307; 81003; 83690; 84443; 84484; 84703; 85025; 87040; 87086; 87635; 93005; 96365; G0378; J0696; Q0177; U0003; U0005

== ENCOUNTER 2021-04-20 12:24 | Inpatient (IN) | payer BC ==
[2021-04-20 13:39] LABS: ALT (SGPT) 28 U/L (8-55); AST (SGOT) 28 U/L (5-34); Albumin 4.4 g/dL (3.5-5.0); Alkaline Phosphatase 187 U/L (40-110); Anion Gap 17 mmol/L (10-20); BUN (Urea Nitrogen) 19 mg/dL (7.0-18.7); Bilirubin, Total 0.5 mg/dL (0.2-1.2); Calc. Creatinine Clearance 0 mL/min (70-130); Carbon Dioxide 17 mmol/L (22-29); Chloride 107 mmol/L (98-107); Glucose 134 mg/dL (70-105); Lipase 141 U/L (8-78); Potassium 3.7 mmol/L (3.5-5.1); Protein, Total 8.4 g/dL (6.0-8.3); Sodium 137 mmol/L (136-145)
[2021-04-20 13:43] LABS: BHCG - Serum Negative (NEGATIVE); Pregs Control Background? CLEAR/WHITE (CLR/WHITE); Pregs Control Bar Appear? YES (CONTROL BAR)
[2021-04-20 15:15] LABS: Bacteria/HPF 2+ HPF (None Seen); Bilirubin Negative (Negative); Blood, Urine 3+ (Negative); Clarity Turbid (Clear); Glucose, Urine (Dipstick) Normal (Negative); Ketone, Urine Negative (Negative); Leukocyte Negative Leu/uL (Negative); Nitrite Negative (Negative); Protein, Urine (Dipstick) 70 mg/dL (Neg-Trace); RBC/HPF Greater than 50 HPF (0-3); Renal Epithelial 0-3 HPF (None Seen); Specific Gravity, Urine 1.031 (1.002-1.036); Urobilinogen Normal mg/dL (Less than 2); pH, Urine 6.5 (5.0-9.0)
[2021-04-20 16:15] LABS: #Lymphocytes 1.7 thou/uL (1.20-3.40); #Monocytes 0.8 thou/uL (0.11-0.59); #Neutrophils 9.9 thou/uL (1.40-6.50); %Basophils 0.4 % (0.0-1.0); %Eosinophils 0.1 % (0.0-10.0); %Lymphocytes 13.3 % (21.0-51.0); %Neutrophils 80.2 % (42.0-75.0); Mean Corpuscular HGB CONC 32.2 g/dL (32.0-36.0); Mean Corpuscular Hemoglobin 26.7 pg (27.0-31.0); Mean Platelet Volume 9.2 fL (7.4-10.4); Platelet Count 455 thou/uL (130-400); RBC Distribution Width 17.9 % (11.5-14.5); Red Blood Cell (RBC) Count 4.87 mill/uL (4.20-5.40); White Blood Cell (WBC) Count 12.4 thou/uL (4.8-10.8)
[2021-04-20] MEDS ORDERED: Bisacodyl 5 MG TAB PO PRN (18:44)
[2021-04-20] MEDS ORDERED: Ondansetron PF 4 MG/2 ML Vial IVP PRN (18:44)
[2021-04-20] MEDS ORDERED: Bisacodyl 10 MG SUPP PR PRN (18:44)
[2021-04-20] MEDS ORDERED: cefTRIAXone\\ROCEPHIN 1 GM VIAL ONE (19:22)
[2021-04-20] MEDS: cefTRIAXone\\ROCEPHIN 1 GM in Sodium Chloride 0.9% 100 ML IVPB SCH (20:58)
[2021-04-20] MEDS: Sodium Chloride 0.9% 1,000 ML IV SCH (21:00)
[2021-04-20] MEDS: Famotidine/PF 20 mg/2ml Vial SLOW IVP SCH (21:00)
[2021-04-20 22:27] VITALS: BMI 30.9
[2021-04-21] MEDS: Sodium Chloride 0.9% 1,000 ML IV SCH ×3 (05:50→20:28)
[2021-04-21 06:22] LABS: #Eosinphils 0.1 thou/uL (0.0-0.7); #Lymphocytes 1.7 thou/uL (1.20-3.40); #Monocytes 0.6 thou/uL (0.11-0.59); #Neutrophils 7.3 thou/uL (1.40-6.50); %Basophils 0.3 % (0.0-1.0); %Lymphocytes 17.6 % (21.0-51.0); %Monocytes 6.3 % (0.0-10.0); %Neutrophils 74.7 % (42.0-75.0); Hemoglobin 11.8 g/dL (12.0-16.0); Mean Corpuscular HGB CONC 32.6 g/dL (32.0-36.0); Mean Corpuscular Hemoglobin 27.3 pg (27.0-31.0); Mean Corpuscular Volume 83.8 fL (78.0-98.0); Mean Platelet Volume 9.3 fL (7.4-10.4); Platelet Count 374 thou/uL (130-400); RBC Distribution Width 17.7 % (11.5-14.5); Red Blood Cell (RBC) Count 4.31 mill/uL (4.20-5.40); White Blood Cell (WBC) Count 9.8 thou/uL (4.8-10.8)
[2021-04-21 06:28] LABS: Hemoglobin A1c 5.3 % (4.0-6.0)
[2021-04-21] MEDS: Famotidine/PF 20 mg/2ml Vial SLOW IVP SCH (08:42)
[2021-04-21] MEDS: Acetaminophen 325 MG TAB PO PRN ×2 (08:46→13:09)
[2021-04-21 13:18] LABS: SARS-CoV-2 PCR by NAA Not Detected (NotDetected)
[2021-04-21 13:24] LABS: Acetaminophen Less than 6.0 mcg/mL (10.0-30.0); Alcohol Less than 10 mg/dL (Less than 10); Salicylate Less than 8.0 mg/dL (15.0-30.0)
[2021-04-21] MEDS: Pregabalin 50 MG CAP PO SCH ×2 (14:42→20:28)
[2021-04-21] MEDS: cefTRIAXone\\ROCEPHIN 1 GM in Sodium Chloride 0.9% 100 ML IVPB SCH (17:26)
[2021-04-21] MEDS: Lithium Carbonate 150 MG CAP PO SCH (20:34)
[2021-04-21] MEDS ORDERED: Venlafaxine HCl XR 150 MG CAP PO SCH (21:00)
[2021-04-22] MEDS: Acetaminophen 325 MG TAB PO PRN ×2 (01:22→10:21)
[2021-04-22 07:11] LABS: ALT (SGPT) 24 U/L (8-55); AST (SGOT) 19 U/L (5-34); Albumin 3.7 g/dL (3.5-5.0); Alkaline Phosphatase 147 U/L (40-110); Anion Gap 11 mmol/L (10-20); BUN (Urea Nitrogen) 9 mg/dL (7.0-18.7); Bilirubin, Total 0.3 mg/dL (0.2-1.2); Calc. Creatinine Clearance 149 mL/min (70-130); Calcium 8.9 mg/dL (7.8-10.44); Carbon Dioxide 19 mmol/L (22-29); Chloride 112 mmol/L (98-107); Globulin 2.9 g/dL (2.4-3.5); Glucose 128 mg/dL (70-105); Potassium 3.1 mmol/L (3.5-5.1); Protein, Total 6.6 g/dL (6.0-8.3); Sodium 139 mmol/L (136-145)
[2021-04-22 07:57] VITALS: TEMP 98.2
[2021-04-22] MEDS ORDERED: Lidocaine 5% Patch TD SCH (09:00)
[2021-04-22] MEDS: Pregabalin 50 MG CAP PO SCH (09:21)
[2021-04-22] MEDS: Lithium Carbonate 150 MG CAP PO SCH (09:21)
[2021-04-22] MEDS: Sodium Chloride 0.9% 1,000 ML IV SCH (11:06)
[2021-04-22 11:45] VITALS: BP 142/73
[2021-04-22] MEDS ORDERED: Transdermal Patch Removal TOP SCH (21:00)
== END 2021-04-22 13:30 | disposition home or self-care (01) | DRG 689 ==
LOC: ERS 12:24 → ERHOLD 17:02 → SJJU 20:43
PROVIDERS: ADMIT Family Medicine; ATTEND Internal Medicine
DX: N30.00 Acute cystitis without hematuria (principal); G92 Toxic encephalopathy; Z20.822 Contact with and (suspected) exposure to COVID-19; R19.7 Diarrhea, unspecified; G89.4 Chronic pain syndrome; D64.9 Anemia, unspecified; F31.9 Bipolar disorder, unspecified; R73.9 Hyperglycemia, unspecified; E86.0 Dehydration; R07.9 Chest pain, unspecified; F41.9 Anxiety disorder, unspecified; T50.915A Adverse effect of multiple unspecified drugs, medicaments and biological substances, initial encounter; Z79.899 Other long term (current) drug therapy
CPT/HCPCS: 36415; 36416; 70450; 71045; 80053; 80178; 80307; 81003; 81015; 82140; 83036; 83690; 84134; 84484; 84703; 85025; 87045; 87046; 87081; 87324; 87427; 87449; 93005; J0696; J3490; J7050; S0028; U0003; U0005

== ENCOUNTER 2021-05-31 20:10 | Emergency (ER) | payer BC | END 2021-05-31 20:39 | disposition left against medical advice (07) | LOC: ERS 20:10 | DX: Z53.21 Procedure and treatment not carried out due to patient leaving prior to being seen by health care provider (principal) ==

== ENCOUNTER 2021-06-21 16:27 | Emergency (ER) | payer BC | END 2021-06-21 17:53 | disposition home or self-care (01) | LOC: ERS 16:27 | DX: G89.18 Other acute postprocedural pain (principal); K59.00 Constipation, unspecified; F11.90 Opioid use, unspecified, uncomplicated | CPT/HCPCS: 99282 ==

== ENCOUNTER 2022-04-19 09:39 | Outpatient (CLI) | payer BC | END 2022-04-19 09:40 | disposition home or self-care (01) | LOC: BICMAMMO 09:39 | PROVIDERS: ATTEND Internal Medicine | DX: Z12.31 Encounter for screening mammogram for malignant neoplasm of breast (principal); Z91.89 Other specified personal risk factors, not elsewhere classified | CPT/HCPCS: 77063; 77067 ==

== ENCOUNTER 2022-10-10 18:02 | Emergency (ER) | payer BC ==
[2022-10-10 19:16] LABS: #Eosinphils 0.1 thou/uL (0.0-0.7); #Lymphocytes 1.2 thou/uL (1.20-3.40); #Monocytes 0.3 thou/uL (0.11-0.59); #Neutrophils 5.3 thou/uL (1.40-6.50); %Basophils 0.3 % (0.0-1.0); %Eosinophils 1.1 % (0.0-10.0); %Lymphocytes 17.3 % (21.0-51.0); %Monocytes 4.9 % (0.0-10.0); %Neutrophils 76.4 % (42.0-75.0); Mean Corpuscular HGB CONC 31.9 g/dL (32.0-36.0); Mean Corpuscular Hemoglobin 27.4 pg (27.0-31.0); Mean Corpuscular Volume 85.9 fl (78.0-98.0); Mean Platelet Volume 9.8 fL (7.4-10.4); Platelet Count 358 10x3/uL (130-400); RBC Distribution Width 16.9 % (11.5-14.5); Red Blood Cell (RBC) Count 4.39 mill/uL (4.20-5.40)
[2022-10-10 19:38] LABS: ALT (SGPT) 18 U/L (8-55); AST (SGOT) 14 U/L (5-34); Albumin 4.4 g/dL (3.5-5.0); Alkaline Phosphatase 121 U/L (40-110); Anion Gap 15 mmol/L (10-20); BUN (Urea Nitrogen) 10 mg/dL (7.0-18.7); Bilirubin, Total 0.4 mg/dL (0.2-1.2); Calc. Creatinine Clearance 0 mL/min (70-130); Calcium 9.3 mg/dL (7.8-10.44); Carbon Dioxide 18 mmol/L (22-29); Chloride 107 mmol/L (98-107); Estimated GFR 108; Globulin 3.2 g/dL (2.4-3.5); Glucose 121 mg/dL (70-105); Potassium 3.2 mmol/L (3.5-5.1); Protein, Total 7.6 g/dL (6.0-8.3); Sodium 137 mmol/L (136-145)
[2022-10-10 20:54] LABS: Bacteria/HPF 4+ HPF (None Seen); Bilirubin Negative (Negative); Blood, Urine Negative (Negative); Clarity Turbid (Clear); Glucose, Urine (Dipstick) Normal (Negative); Ketone, Urine 80 mg/dL (Negative); Leukocyte 75 Leu/uL (Negative); Nitrite Negative (Negative); Protein, Urine (Dipstick) 100 mg/dL (Neg-Trace); RBC/HPF 0-3 HPF (0-3); Specific Gravity, Urine 1.036 (1.002-1.036); pH, Urine 6.5 (5.0-9.0)
[2022-10-10] MEDS ORDERED: Potassium Chloride 20 MEQ TAB ONE ×2 (20:55→21:00)
[2022-10-10 21:01] LABS: Amphetamine Not Detected (NotDetected); Barbiturates Screen Not Detected (NotDetected); Benzodiazepine Screen Detected (NotDetected); Cocaine Metabolite Screen Not Detected (NotDetected); Methadone Not Detected (NotDetected); Methamphetamine Not Detected (NotDetected); Opiate Screen Detected (NotDetected); Oxycodone Screen Detected (NotDetected); Phencyclidine (PCP) Not Detected (NotDetected); THC/Cannabinoid Screen Not Detected (NotDetected); Tricyclic Screen Not Detected (NotDetected)
[2022-10-10 21:34] LABS: Pregnancy Test - Urine (BHCG) Negative (Negative); Pregu Control Bar Appear? YES (CONTROL BAR); Specific Gravity 1.033 (1.002-1.036)
[2022-10-10 21:35] LABS: Pregu Control Background? CLEAR/WHITE (CLR/WHITE)
[2022-10-10 23:01] LABS: Acetaminophen Less than 10.0 mcg/mL (10.0-30.0); Alcohol Less than 10 mg/dL (Less than 10); Salicylate Less than 8.0 mg/dL (15.0-30.0)
[2022-10-11] MEDS ORDERED: Nitrofurantoin Monohyd/M-Cryst 100 MG CAP PO SCH (06:15)
== END 2022-10-11 10:01 ==
LOC: ERS 18:02
DX: F31.9 Bipolar disorder, unspecified (principal); E87.6 Hypokalemia
CPT/HCPCS: 36415; 70450; 80053; 80178; 80306; 80307; 81003; 81015; 81025; 84443; 84484; 85025; 93005

== ENCOUNTER 2025-03-01 23:53 | Inpatient (IN) | payer BC ==
[2025-03-02 01:14] LABS: #Basophils Less than 0.03 10x3/uL (0.0-0.2); #Eosinophils Less than 0.03 10x3/uL (0.0-0.7); #Monocytes 0.84 10x3/uL (0.11-0.59); #Neutrophils 10.38 10x3/uL (1.40-6.50); %Basophils 0.2 % (0.0-1.0); %Eosinophils 0.2 % (0.0-10.0); %Lymphocytes 8.6 % (21.0-51.0); %Monocytes 6.8 % (0.0-10.0); %Neutrophils 83.9 % (42.0-75.0); Hematocrit 39.7 % (36.0-47.0); Hemoglobin 11.5 g/dL (12.0-16.0); Mean Corpuscular Hemoglobin 25.2 pg (27.0-31.0); Mean Corpuscular Volume 86.9 fL (78.0-98.0); Platelet Count 307 10x3/uL (130-400); Red Blood Cell (RBC) Count 4.57 mill/uL (4.20-5.40); White Blood Cell (WBC) Count 12.37 10x3/uL (4.8-10.8)
[2025-03-02 01:30] LABS: ALT (SGPT) 11 U/L (Less than 34); AST (SGOT) 16 U/L (11-34); Albumin 4.6 g/dL (3.1-4.5); Alkaline Phosphatase 160 U/L (40-110); Anion Gap 18 mmol/L (10-20); BUN (Urea Nitrogen) 18 mg/dL (9.8-20.1); Bilirubin, Total 0.5 mg/dL (0.3-1.2); CK (CPK) 36 U/L (29-168); Calc. Creatinine Clearance 0 mL/min (70-130); Calcium 10.0 mg/dL (7.8-10.44); Carbon Dioxide 16 mmol/L (22-29); Chloride 103 mmol/L (98-107); Globulin 3.8 g/dL (2.4-3.5); Glucose 152 mg/dL (70-105); Lipase 64 U/L (8-78); Lithium 2.517 mmol/L (1.0-1.2); Magnesium 2.1 mg/dL (1.6-2.6); Potassium 3.9 mmol/L (3.5-5.1); Sodium 133 mmol/L (136-145)
[2025-03-02 01:51] LABS: Troponin I Less than 0.010 ng/mL (< 0.028)
[2025-03-02] MEDS ORDERED: Acetaminophen 325 MG TAB PO PRN (02:46)
[2025-03-02] MEDS ORDERED: Calcium Carbonate 500 MG ChewTAB PO PRN (02:46)
[2025-03-02] MEDS ORDERED: Electrolyte Replacement Protocol 1 EACH FS SCH (03:00)
[2025-03-02 04:26] VITALS: BMI 37.9
[2025-03-02 04:39] LABS: Anion Gap 20 mmol/L (10-20); BUN (Urea Nitrogen) 19 mg/dL (9.8-20.1); Calc. Creatinine Clearance 103 mL/min (70-130); Calcium 9.9 mg/dL (7.8-10.44); Carbon Dioxide 12 mmol/L (22-29); Chloride 104 mmol/L (98-107); Glucose 135 mg/dL (70-105); Potassium 4.4 mmol/L (3.5-5.1); Sodium 132 mmol/L (136-145)
[2025-03-02] MEDS: Ondansetron PF 4 MG/2 ML Vial IVP PRN (04:53)
[2025-03-02 07:48] LABS: Lithium 2.365 mmol/L (1.0-1.2)
[2025-03-02 08:49] LABS: Anion Gap 20 mmol/L (10-20); BUN (Urea Nitrogen) 20 mg/dL (9.8-20.1); Calc. Creatinine Clearance 107 mL/min (70-130); Calcium 9.8 mg/dL (7.8-10.44); Carbon Dioxide 15 mmol/L (22-29); Chloride 103 mmol/L (98-107); Glucose 157 mg/dL (70-105); Potassium 4.0 mmol/L (3.5-5.1); Sodium 134 mmol/L (136-145)
[2025-03-02] MEDS: Mupirocin 1 GM TUBE TP SCH (09:00)
[2025-03-02 12:30] LABS: Cocaine Metabolite Screen Negative (Negative); THC/Cannabinoid Screen Negative (Negative); Tricyclic Screen PRELIM POSITIVE (Negative)
[2025-03-02 15:24] LABS: Lithium 1.779 mmol/L (1.0-1.2)
[2025-03-02 15:29] LABS: Anion Gap 14 mmol/L (10-20); BUN (Urea Nitrogen) 17 mg/dL (9.8-20.1); Calc. Creatinine Clearance 140 mL/min (70-130); Calcium 9.7 mg/dL (7.8-10.44); Carbon Dioxide 19 mmol/L (22-29); Chloride 104 mmol/L (98-107); Glucose 159 mg/dL (70-105); Potassium 3.8 mmol/L (3.5-5.1); Sodium 133 mmol/L (136-145)
[2025-03-02 15:30] LABS: Acetaminophen Less than 10 mcg/mL (Less than 10)
[2025-03-02 18:25] LABS: Anion Gap 15 mmol/L (10-20); BUN (Urea Nitrogen) 15 mg/dL (9.8-20.1); Calc. Creatinine Clearance 138 mL/min (70-130); Calcium 9.7 mg/dL (7.8-10.44); Carbon Dioxide 18 mmol/L (22-29); Chloride 104 mmol/L (98-107); Glucose 152 mg/dL (70-105); Potassium 4.0 mmol/L (3.5-5.1); Sodium 133 mmol/L (136-145)
[2025-03-03 01:01] LABS: Anion Gap 17 mmol/L (10-20); BUN (Urea Nitrogen) 15 mg/dL (9.8-20.1); Calc. Creatinine Clearance 143 mL/min (70-130); Calcium 9.9 mg/dL (7.8-10.44); Carbon Dioxide 16 mmol/L (22-29); Chloride 105 mmol/L (98-107); Glucose 155 mg/dL (70-105); Potassium 4.1 mmol/L (3.5-5.1); Sodium 134 mmol/L (136-145)
[2025-03-03 04:16] LABS: #Basophils Less than 0.03 10x3/uL (0.0-0.2); #Eosinophils Less than 0.03 10x3/uL (0.0-0.7); #Monocytes 1.59 10x3/uL (0.11-0.59); #Neutrophils 10.31 10x3/uL (1.40-6.50); %Basophils 0.1 % (0.0-1.0); %Eosinophils 0.1 % (0.0-10.0); %Lymphocytes 10.9 % (21.0-51.0); %Monocytes 11.8 % (0.0-10.0); %Neutrophils 76.7 % (42.0-75.0); Hematocrit 38.5 % (36.0-47.0); Hemoglobin 11.4 g/dL (12.0-16.0); Mean Corpuscular Hemoglobin 24.8 pg (27.0-31.0); Mean Corpuscular Volume 83.7 fL (78.0-98.0); Platelet Count 332 10x3/uL (130-400); Red Blood Cell (RBC) Count 4.60 mill/uL (4.20-5.40); White Blood Cell (WBC) Count 13.45 10x3/uL (4.8-10.8)
[2025-03-03 04:31] LABS: Anion Gap 15 mmol/L (10-20); BUN (Urea Nitrogen) 16 mg/dL (9.8-20.1); Calc. Creatinine Clearance 127 mL/min (70-130); Calcium 10.2 mg/dL (7.8-10.44); Carbon Dioxide 19 mmol/L (22-29); Chloride 105 mmol/L (98-107); Glucose 153 mg/dL (70-105); Potassium 3.8 mmol/L (3.5-5.1); Sodium 135 mmol/L (136-145)
[2025-03-03 05:41] LABS: Lithium 1.243 mmol/L (1.0-1.2)
[2025-03-03 09:30] LABS: Anion Gap 16 mmol/L (10-20); BUN (Urea Nitrogen) 15 mg/dL (9.8-20.1); Calc. Creatinine Clearance 147 mL/min (70-130); Calcium 9.8 mg/dL (7.8-10.44); Carbon Dioxide 17 mmol/L (22-29); Chloride 105 mmol/L (98-107); Glucose 169 mg/dL (70-105); Potassium 3.7 mmol/L (3.5-5.1); Sodium 134 mmol/L (136-145)
[2025-03-03] MEDS: Enoxaparin 40 MG (0.4 mL) SYRINGE SC SCH (10:17)
[2025-03-03] MEDS: Famotidine/PF 20 mg/2ml Vial SLOW IVP SCH (10:17)
[2025-03-03] MEDS: hydrALAZINE 20 MG/ML VIAL SLOW IVP PRN (15:05)
[2025-03-03 16:58] LABS: Lithium 0.783 mmol/L (1.0-1.2)
[2025-03-03 17:03] LABS: Anion Gap 15 mmol/L (10-20); BUN (Urea Nitrogen) 14 mg/dL (9.8-20.1); Calc. Creatinine Clearance 155 mL/min (70-130); Calcium 9.7 mg/dL (7.8-10.44); Carbon Dioxide 19 mmol/L (22-29); Chloride 105 mmol/L (98-107); Glucose 162 mg/dL (70-105); Potassium 3.8 mmol/L (3.5-5.1); Sodium 135 mmol/L (136-145)
[2025-03-03] MEDS: D5 1/2 NS w/20 mEq KCL 1,000 ML IV SCH (19:37)
[2025-03-04] MEDS: hydrALAZINE 20 MG/ML VIAL SLOW IVP SCH (00:24)
[2025-03-04 05:02] LABS: #Basophils Less than 0.03 10x3/uL (0.0-0.2); #Eosinophils Less than 0.03 10x3/uL (0.0-0.7); #Monocytes 1.04 10x3/uL (0.11-0.59); #Neutrophils 8.56 10x3/uL (1.40-6.50); %Basophils 0.2 % (0.0-1.0); %Eosinophils 0.2 % (0.0-10.0); %Lymphocytes 13.9 % (21.0-51.0); %Monocytes 9.2 % (0.0-10.0); %Neutrophils 75.6 % (42.0-75.0); Hematocrit 36.6 % (36.0-47.0); Hemoglobin 11.3 g/dL (12.0-16.0); Mean Corpuscular Hemoglobin 25.1 pg (27.0-31.0); Mean Corpuscular Volume 81.3 fL (78.0-98.0); Platelet Count 335 10x3/uL (130-400); Red Blood Cell (RBC) Count 4.50 mill/uL (4.20-5.40); White Blood Cell (WBC) Count 11.31 10x3/uL (4.8-10.8)
[2025-03-04 05:03] LABS: Anion Gap 14 mmol/L (10-20); BUN (Urea Nitrogen) 14 mg/dL (9.8-20.1); Calc. Creatinine Clearance 158 mL/min (70-130); Calcium 9.7 mg/dL (7.8-10.44); Carbon Dioxide 16 mmol/L (22-29); Chloride 107 mmol/L (98-107); Glucose 213 mg/dL (70-105); Potassium 3.4 mmol/L (3.5-5.1); Sodium 134 mmol/L (136-145)
[2025-03-04] MEDS: Potassium Chloride 20 MEQ in Premix 1 BAG IVPB SCH (08:09)
[2025-03-04] MEDS: Sodium Bicarbonate 50 MEQ in Dextrose 5 %-0.45 % NaCl 1,000 ML IV SCH (11:00)
[2025-03-04] MEDS ORDERED: NIFEdipine XL 30 MG ER.TAB PO SCH (15:15)
[2025-03-04] MEDS: D5 1/2 NS w/20 mEq KCL 1,000 ML IV SCH (16:08)
[2025-03-04] MEDS: hydrALAZINE 20 MG/ML VIAL SLOW IVP PRN (17:08)
[2025-03-04 18:25] VITALS: BMI 37.9
[2025-03-04] MEDS: Ketorolac Tromethamine 30 MG (1 mL) VIAL IVP PRN (20:30)
[2025-03-05 04:36] LABS: #Basophils Less than 0.03 10x3/uL (0.0-0.2); #Eosinophils 0.09 10x3/uL (0.0-0.7); #Monocytes 0.87 10x3/uL (0.11-0.59); #Neutrophils 6.45 10x3/uL (1.40-6.50); %Basophils 0.2 % (0.0-1.0); %Eosinophils 1.0 % (0.0-10.0); %Lymphocytes 16.5 % (21.0-51.0); %Monocytes 9.7 % (0.0-10.0); %Neutrophils 71.7 % (42.0-75.0); Hematocrit 35.8 % (36.0-47.0); Hemoglobin 10.8 g/dL (12.0-16.0); Mean Corpuscular Hemoglobin 24.8 pg (27.0-31.0); Mean Corpuscular Volume 82.3 fL (78.0-98.0); Platelet Count 342 10x3/uL (130-400); Red Blood Cell (RBC) Count 4.35 mill/uL (4.20-5.40); White Blood Cell (WBC) Count 8.99 10x3/uL (4.8-10.8)
[2025-03-05 05:02] LABS: Anion Gap 13 mmol/L (10-20); BUN (Urea Nitrogen) 15 mg/dL (9.8-20.1); Calc. Creatinine Clearance 147 mL/min (70-130); Calcium 9.6 mg/dL (7.8-10.44); Carbon Dioxide 20 mmol/L (22-29); Chloride 110 mmol/L (98-107); Glucose 197 mg/dL (70-105); Potassium 3.7 mmol/L (3.5-5.1); Sodium 139 mmol/L (136-145)
[2025-03-05] MEDS ORDERED: NIFEdipine XL 30 MG ER.TAB PO SCH (09:00)
[2025-03-06 05:11] LABS: #Basophils Less than 0.03 10x3/uL (0.0-0.2); #Eosinophils 0.30 10x3/uL (0.0-0.7); #Monocytes 0.79 10x3/uL (0.11-0.59); #Neutrophils 5.97 10x3/uL (1.40-6.50); %Basophils 0.2 % (0.0-1.0); %Eosinophils 3.5 % (0.0-10.0); %Lymphocytes 16.9 % (21.0-51.0); %Monocytes 9.2 % (0.0-10.0); %Neutrophils 69.6 % (42.0-75.0); Hematocrit 35.2 % (36.0-47.0); Hemoglobin 10.6 g/dL (12.0-16.0); Mean Corpuscular Hemoglobin 25.2 pg (27.0-31.0); Mean Corpuscular Volume 83.6 fL (78.0-98.0); Platelet Count 324 10x3/uL (130-400); Red Blood Cell (RBC) Count 4.21 mill/uL (4.20-5.40); White Blood Cell (WBC) Count 8.58 10x3/uL (4.8-10.8)
[2025-03-06 05:42] LABS: Anion Gap 11 mmol/L (10-20); BUN (Urea Nitrogen) 15 mg/dL (9.8-20.1); Calc. Creatinine Clearance 155 mL/min (70-130); Calcium 9.3 mg/dL (7.8-10.44); Carbon Dioxide 20 mmol/L (22-29); Chloride 112 mmol/L (98-107); Glucose 166 mg/dL (70-105); Potassium 3.5 mmol/L (3.5-5.1); Sodium 139 mmol/L (136-145)
[2025-03-07 04:26] LABS: #Basophils Less than 0.03 10x3/uL (0.0-0.2); #Eosinophils 0.31 10x3/uL (0.0-0.7); #Monocytes 0.50 10x3/uL (0.11-0.59); #Neutrophils 3.53 10x3/uL (1.40-6.50); %Basophils 0.3 % (0.0-1.0); %Eosinophils 5.3 % (0.0-10.0); %Lymphocytes 25.0 % (21.0-51.0); %Monocytes 8.6 % (0.0-10.0); %Neutrophils 60.5 % (42.0-75.0); Hematocrit 33.3 % (36.0-47.0); Hemoglobin 10.0 g/dL (12.0-16.0); Mean Corpuscular Hemoglobin 25.4 pg (27.0-31.0); Mean Corpuscular Volume 84.5 fL (78.0-98.0); Platelet Count 224 10x3/uL (130-400); Red Blood Cell (RBC) Count 3.94 mill/uL (4.20-5.40); White Blood Cell (WBC) Count 5.84 10x3/uL (4.8-10.8)
[2025-03-07 04:34] LABS: Anion Gap 12 mmol/L (10-20); BUN (Urea Nitrogen) 15 mg/dL (9.8-20.1); Calc. Creatinine Clearance 162 mL/min (70-130); Calcium 8.7 mg/dL (7.8-10.44); Carbon Dioxide 19 mmol/L (22-29); Chloride 112 mmol/L (98-107); Glucose 147 mg/dL (70-105); Potassium 3.4 mmol/L (3.5-5.1); Sodium 140 mmol/L (136-145)
[2025-03-07] MEDS: Famotidine 20 MG TAB PO SCH (10:07)
[2025-03-08 05:16] LABS: #Basophils 0.03 10x3/uL (0.0-0.2); #Eosinophils 0.36 10x3/uL (0.0-0.7); #Monocytes 0.41 10x3/uL (0.11-0.59); #Neutrophils 3.04 10x3/uL (1.40-6.50); %Basophils 0.5 % (0.0-1.0); %Eosinophils 6.6 % (0.0-10.0); %Lymphocytes 29.3 % (21.0-51.0); %Monocytes 7.5 % (0.0-10.0); %Neutrophils 55.7 % (42.0-75.0); Hematocrit 35.2 % (36.0-47.0); Hemoglobin 10.5 g/dL (12.0-16.0); Mean Corpuscular Hemoglobin 25.1 pg (27.0-31.0); Mean Corpuscular Volume 84.2 fL (78.0-98.0); Platelet Count 215 10x3/uL (130-400); Red Blood Cell (RBC) Count 4.18 mill/uL (4.20-5.40); White Blood Cell (WBC) Count 5.46 10x3/uL (4.8-10.8)
[2025-03-08 05:28] LABS: Anion Gap 11 mmol/L (10-20); BUN (Urea Nitrogen) 16 mg/dL (9.8-20.1); Calc. Creatinine Clearance 186 mL/min (70-130); Calcium 8.6 mg/dL (7.8-10.44); Carbon Dioxide 20 mmol/L (22-29); Chloride 111 mmol/L (98-107); Glucose 136 mg/dL (70-105); Potassium 3.4 mmol/L (3.5-5.1); Sodium 139 mmol/L (136-145)
[2025-03-08 18:28] LABS: Hematocrit 35.4 % (36.0-47.0); Hemoglobin 10.8 g/dL (12.0-16.0); Platelet Count 308 10x3/uL (130-400)
[2025-03-08] MEDS: Pantoprazole 40 MG VIAL IVP SCH (20:10)
[2025-03-09 05:34] LABS: Hematocrit 34.7 % (36.0-47.0); Hemoglobin 10.4 g/dL (12.0-16.0); Platelet Count 244 10x3/uL (130-400)
[2025-03-09 11:41] VITALS: BP 124/93; TEMP 98.7
== END 2025-03-09 15:02 | disposition home or self-care (01) | DRG 917 ==
LOC: ERS 23:53 → CCU 03-02 02:27 → 2NO 03-02 16:55
PROVIDERS: ADMIT Student in an Organized Health Care Education/Training Program; ATTEND Family Medicine
DX: T45.0X2A Poisoning by antiallergic and antiemetic drugs, intentional self-harm, initial encounter (principal); G92.8 Other toxic encephalopathy; G93.41 Metabolic encephalopathy; R45.851 Suicidal ideations; E87.1 Hypo-osmolality and hyponatremia; E87.20 Acidosis, unspecified; F31.9 Bipolar disorder, unspecified; Z96.652 Presence of left artificial knee joint; Z98.890 Other specified postprocedural states
CPT/HCPCS: 36415; 70551; 80048; 80053; 80143; 80178; 80306; 80307; 82550; 83605; 83690; 83735; 84484; 84702; 85014; 85018; 85025; 85049; 87428; 93005; 93010; J0360; J1308; J1650; J1885; J2272; J2405; J2470; J3480; J7042; J7120